=== PATIENT | female | born 1935 | race Hispanic/Latino ===

== ENCOUNTER 2020-12-18 14:01 | Inpatient (IN) | payer MEDICARE, OTHER ==
[2020-12-18] MEDS ORDERED: IPRATROPIUM/ALBUTEROL SULFATE 3 ML AMPUL.NEB IH ONE (14:47)
[2020-12-18] MEDS ORDERED: methylPREDNISolone Sod Succinate 125 MG/2 ML INJ IV ONE (14:57)
--- NOTE | 2020-12-18 14:59 | Emergency Department Report ---
ED Shortness of Breath HPI - General Chief Complaint: Dyspnea/Respdistress Stated Complaint: SUBHA Time Seen by Provider: 12/18/20 14:45 Source: patient, EMS, old records reviewed Mode of arrival: Stretcher Limitations: Other (Dementia) - History of Present Illness Initial Comments: Chief complaint: HPI: This is a 35-year-old female with history of generalized anxiety disorder, migraine, hyperlipidemia, CVA, asthma, atrial fibrillation, GERD, major dep ressive disorder, COPD, MO, hypertension, glaucoma, recurrent UTI, prediabetes, osteoarthritis of bilateral knees, aortic valve regurgitation, osteoarthritis of the left shoulder, right knee, osteopenia. She presents from [facility] with clinic after choking episode. Due to desaturation, patient was transferred to our facility. Chest radiograph performed today revealed left pleural effusion. According to documentation patient was admitted to CDU for evaluation of progressive weakness. BNP was elevated at 300. Patient is not oxygen dependent. Patient denies any discomfort at this time. According to documentation. is a caregiver. She has been progressively weaker, fatigue sleeping more losing weight. Not walking around the house as much. I spoke with Dr. Thornton who evaluated patient. She stated that patient was ready for discharge. came to pick her up. She began to choke after drinking water. Her oxygen saturation declined to the 80s. Heart rate increas e. EMS 911 was called. According to Dr. Thornton's report, urinalysis negative for infection. I spoke with at the bedside. He states that "I just cannot do it anymore. I have to take care of me." Since [place], patient caregiver has been struggling to care for her. Patient requires more care than he is able to provide. explains that patient requires 24-hour supervision. He has to be at her bedside continuously. Most recently patient is a poor appetite. She has had significant diarrhea. She needs complete assistance with bathing feeding dressing and position change. MD Complaint: shortness of breath -: Sudden Severity: mild Consistency: now resolved Improves With: nothing Worsens With: nothing Known History Of: asthma, other (Atrial fibrillation) - Related Data Allergies Allergy/AdvReac Type Severity Reaction Status Date / Time ciprofloxacin Allergy Intermediate Hives Verified 12/18/20 14:40 latex Allergy Intermediate Hives Verified 12/18/20 14:40 milk Allergy Unknown Unknown Verified 12/18/20 14:40 NSAIDS (Non-Steroidal Allergy Unknown Unknown Verified 12/18/20 14:40 Anti-Inflamma Penicillins Allergy Unknown Unknown Verified 12/18/20 14:40 co-trimoxazole Allergy Intermediate Hives Uncoded 12/18/20 14:40 ED Review of Systems ROS: Stated complaint: SUBHA Other details as noted in HPI ED Past Medical Hx - Past Medical History Previous Medical History?: Yes Hx Hypertension: Yes Hx Heart Attack/AMI: Yes Hx GERD: Yes Hx of Cancer: Yes (breast) Hx Headaches / Migraines: Yes Hx Psychiatric Treatment: Yes (anxiety) Hx Asthma: Yes Hx COPD: Yes Hx Dementia: Yes Additional medical history: hyperlipidemia, afib, atherosclerosis of aorta, bilat glaucoma, osteoarthritis, pre-diabetes - Surgical History Past Surgical History?: Yes Additional Surgical History: mastectomy - Social History Smoking Status: Never Smoker Substance Use Type: None ED Physical Exam - General Limitations: Other General appearance: alert, in no apparent distress - Head Head exam: Present: atraumatic, normocephalic - Eye Eye exam: Present: normal appearance - ENT ENT exam: Present: mucous membranes moist - Neck Neck exam: Present: normal inspection, full ROM - Respiratory Respiratory exam: Present: rales, rhonchi, decreased breath sounds, other (Incr eased respiratory rate mild work of breathing). Absent: respiratory distress, wheezes, accessory muscle use, prolonged expiratory - Cardiovascular Cardiovascular Exam: Present: regular rate, irregular rhythm, normal heart sounds. Absent: systolic murmur, diastolic murmur, rubs, gallop - GI/Abdominal GI/Abdominal exam: Present: soft. Absent: distended, tenderness, guarding, rebound - Extremities Exam Extremities exam: Present: normal inspection - Neurological Exam Neurological exam: Present: alert, other (Oriented to name only) - Psychiatric Psychiatric exam: Present: depressed, flat affect - Skin Skin exam: Present: warm, dry, intact, normal color. Absent: rash ED Course Vital Signs 12/18/20 12/18/20 12/18/20 14:21 15:00 16:00 Temperature 96 F L Pulse Rate 89 98 H 83 Pulse Rate [ Anterior Bilateral Throughout] Respiratory 26 H 24 24 Rate Respiratory Rate [Anterior Bilateral Throughout] Blood Pressure 108/60 108/60 104/72 O2 Sat by Pulse 90 87 99 Oximetry 12/18/20 12/18/20 16:07 17:00 Temperature Pulse Rate 93 H Pulse Rate [ 89 Anterior Bilateral Throughout] Respiratory 25 H Rate Respiratory 18 Rate [Anterior Bilateral Throughout] Blood Pressure 94/36 O2 Sat by Pulse 96 Oximetry ED Medical Decision Making - Lab Data Result diagrams: 12/18/20 16:06 12/18/20 16:06 - Radiology Data Radiology results: report reviewed [facility] [address] [place] [address] XRay Report Signed Patient: DAMIAN BAIRD MR#: [id number] 70 : 1935 Acct:[id number] Age/Sex: 85 / F ADM Date: 12/18/20 Loc: ED Attending Dr: Ordering Physician: Jose Wilkerson MD Date of Service: 12/18/20 Procedure(s): XR chest 1V ap Accession Number(s): [id number] cc: Jose Wilkerson MD Fluoro Time In Minutes: CHEST 1 VIEW 12/18/2020 2:39 PM INDICATION / CLINICAL INFORMATION: Dyspnea choking low oxygen. COMPARISON: None available. FINDINGS: SUPPORT DEVICES: None. HEART / MEDIASTINUM: No significant abnormality. LUNGS / PLEURA: Increased interstitial prominence with chronic interstitial change in bilateral lungs. There may be a small left effusion No pneumothorax. Signer Name: Fabrizio Thornton MD Signed: 12/18/2020 3:41 PM Workstation Name: [id number] Transcribed By: CW Dictated By: MORGAN THORNTON MD Electronically Authenticated By: MORGAN THORNTON MD Signed Date/Time: 12/18/201540 DD/ 40 TD/TT: Patient Name: DAMIAN BAIRD Gender: Female Date of : 1935 Referring Provider: JOSE THORNTON Organization: [facility] Accession Number: [id number] Requested Date: December 18, 2020 17:04 Report Status: Final Requested Procedure: 1 Procedure Description: CT abdomen pelvis w con Modality: CT Findings Reporting MD: Fabrizio Thornton Dictation Time: December 18, 2020 17:34 Recruitment Internship: Not available Chemical Project Engineer Date: CT ABDOMEN AND PELVIS WITH CONTRAST HISTORY: diarrhea leukocytosis failure to thrive. COMPARISON: None. TECHNIQUE: CT images of the abdomen and pelvis were obtained following administration of intravenous contrast. All CT scans at this location are performed using CT dose reduction for ALARA by means of automated exposure control. CONTRAST: 100 ml of intravenous contrast administered. FINDINGS: Abdomen/pelvis: The liver, spleen, pancreas and gallbladder appear normal. There is thickening of bilateral adrenal glands. There may be a left adrenal nodular/hypodensity with Hounsfield unit of 50 measuring 1.5 cm. Malrotation of the right kidney anteriorly appendix appears normal. There is constipation throughout the colon. Urinary bladder appears normal. No bowel obstruction. There is sigmoid diverticulosis. No dominant adenopathy. Degenerative changes seen throughout spine with scoliosis. The liver is enlarged measuring 19.3 cm questionable thickening of ascending colon IMPRESSION: 1. Bilateral pleural effusions. Small pericardial effusion. 2. Right kidney is anteriorly rotated. No severe hydronephrosis. 3. Constipation. Sigmoid and colonic diverticulosis without diverticulitis. There is some questionable thickening of the ascending colon however lack of oral contrast limits examination limits evaluation of the colon. Given patient's age follow-up with colonoscopy recommended for patient's symptoms. 4. Hepatomegaly 5. Left adrenal nodule. Follow-up with noncontrast scan recommended. Patient Name: DAMIAN BAIRD Gender: Female Date of : 1935 Referring Provider: JOSE THORNTON Organization: [facility] Accession Number: [id number] Requested Date: December 18, 2020 17:09 Report Status: Final Requested Procedure: 1 Procedure Description: CT angio chest Modality: CT Findings Reporting MD: Fabrizio Thornton Dictation Time: December 18, 2020 17:27 Recruitment Internship: Not available Chemical Project Engineer Date: CTA CHEST WITH CONTRAST INDICATION / CLINICAL INFORMATION: hypoxia. TECHNIQUE: Axial CT images were obtained through the chest after injection of IV contrast. 3 plane MIP and/or 3D reconstructions were produced. All CT scans at this location are performed using CT dose reducti on for ALARA by means of automated exposure control. COMPARISON: None available. FINDINGS: The pulmonary arteries are patent without filling defect or evidence for PTE. Diffuse emphysematous change in bilateral lungs. There is interstitial nodularity with pulmonary nodules and opacities in bilate ral lungs. Some interstitial nodularity is noted as well. Small focal area of opacity is seen within the lower lungs and right middle lobe bilaterally. Bilateral pleural effusions are identified. Heart and aorta appear normal. IMPRESSION: 1. No CT evidence for pulmonary embolism. 2. Bilateral pulmonary opacities in bilateral lungs. There is interstitial prominence with interstitial nodularity and pulmonary nodules in bilateral lungs. More focal opacities in bilateral lower lungs. Findings cou ld represent atypical infection, fungal infection, Covid, nonspecific. Follow-up to exclude pulmonary nodule recommended. 3. Pleural effusions Signer Name: Fabrizio Thornton MD Signed: 12/18/2020 5:27 PM Workstation Name: [id number] - Medical Decision Making 1. Acute respiratory failure hypoxia requiring nasal cannula pulmonary embolism ruled out with CT angiogram. CT chest findings represent aspiration pneumonia versus community-acquired pneumonia. Congestive heart failure is a consideration with elevated proBNP. 2. Multifocal pneumonia possible sepsis with significant leukocytosis and elevated lactic acid. I spoke personally with physician. Urinalysis reported to be negative [facility]. I spoke with Dr. Herbie Rapp physician who authorized admission to our facility. Hospitalist Dr. Sheets will admit to telemetry floor Critical care attestation.: If time is entered above; I have spent that time in minutes in the direct care of this critically ill patient, excluding procedure time. ED Disposition Clinical Impression: Aspiration pneumonitis, Community acquired pneumonia, Congestive heart failure, Atrial fibrillation, Dehydration, Acute respiratory failure with hypoxia Disposition: OP ADMIT IP TO THIS HOSP Is pt being admited?: No Does the pt Need Aspirin: No Condition: Stable Instructions: Bacterial Pneumonia (ED) Referrals: SAVAGE HAN MD [Primary Care Provider] - 3-5 Days
--- NOTE | 2020-12-18 15:45 | XRay Report ---
CHEST 1 VIEW 12/18/2020 2:39 PM INDICATION / CLINICAL INFORMATION: Dyspnea choking low oxygen. COMPARISON: None available. FINDINGS: SUPPORT DEVICES: None. HEART / MEDIASTINUM: No significant abnormality. LUNGS / PLEURA: Increased interstitial prominence with chronic interstitial change in bilateral lungs . There may be a small left effusion No pneumothorax. Signer Name: Fabrizio Thornton MD Signed: 12/18/2020 3:41 PM Workstation Name: [id number]
[2020-12-18 16:30] LABS: Basophils # (Auto) 0.2 K/mm3 (0.0-0.1); Basophils % (Auto) 1.2 % (0.0-1.8); Eosinophils % (Auto) 0.1 % (0.0-4.3); Hemoglobin 14.8 gm/dl (10.1-14.3); Lymphocytes # (Auto) 0.4 K/mm3 (1.2-5.4); Lymphocytes % (Auto) 2.4 % (13.4-35.0); Mean Corpuscular HGB Conc 35 % (30-34); Mean Corpuscular Volume 93 fl (79-97); Monocytes # (Auto) 1.5 K/mm3 (0.0-0.8); Platelet Count 298 K/mm3 (140-440); Red Blood Count 4.65 M/mm3 (3.65-5.03); Red Cell Distribution Width 13.2 % (13.2-15.2)
[2020-12-18 16:36] LABS: Blood Urea Nitrogen 7 mg/dL (7-17); Calcium 9.1 mg/dL (8.4-10.2); Hemolysis Index 15
[2020-12-18 16:39] LABS: BUN/Creatinine Ratio 14
[2020-12-18] MEDS ORDERED: SODIUM CHLORIDE 0.9% 500 ML 500 ML IV ONE (17:08)
--- NOTE | 2020-12-18 18:31 | Cat Scan Report ---
CTA CHEST WITH CONTRAST INDICATION / CLINICAL INFORMATION: hypoxia. TECHNIQUE: Axial CT images were obtained through the chest after injection of IV contrast. 3 plane [place] P and/or 3D reconstructions were produced. All CT scans at this location are performed using CT dose reduction for ALARA by means of automated exposure control. COMPARISON: None available. FINDINGS: The pulmonary arteries are patent without filling defect or evidence for PTE. Diffuse emphysematous c hange in bilateral lungs. There is interstitial nodularity with pulmonary nodules and opacities in bi lateral lungs. Some interstitial nodularity is noted as well. Small focal area of opacity is seen wit hin the lower lungs and right middle lobe bilaterally. Bilateral pleural effusions are identified. He art and aorta appear normal. IMPRESSION: 1. No CT evidence for pulmonary embolism. 2. Bilateral pulmonary opacities in bilateral lungs. There is interstitial prominence with interstiti al nodularity and pulmonary nodules in bilateral lungs. More focal opacities in bilateral lower lungs . Findings could represent atypical infection, fungal infection, Covid, nonspecific. Follow-up to exc lude pulmonary nodule recommended. 3. Pleural effusions Signer Name: Fabrizio Thornton MD Signed: 12/18/2020 6:27 PM Workstation Name: [id number]
--- NOTE | 2020-12-18 18:38 | Cat Scan Report ---
CT ABDOMEN AND PELVIS WITH CONTRAST HISTORY: diarrhea leukocytosis failure to thrive. COMPARISON: None. TECHNIQUE: CT images of the abdomen and pelvis were obtained following administration of intravenous contrast. All CT scans at this location are performed using CT dose reduction for ALARA by means of automated exposure control. CONTRAST: 100 ml of intravenous contrast administered. FINDINGS: Abdomen/pelvis: The liver, spleen, pancreas and gallbladder appear normal. There is thickening of bi lateral adrenal glands. There may be a left adrenal nodular/hypodensity with Hounsfield unit of 50 me asuring 1.5 cm. Malrotation of the right kidney anteriorly appendix appears normal. There is constipa tion throughout the colon. Urinary bladder appears normal. No bowel obstruction. There is sigmoid div erticulosis. No dominant adenopathy. Degenerative changes seen throughout spine with scoliosis. The l iver is enlarged measuring 19.3 cm questionable thickening of ascending colon IMPRESSION: 1. Bilateral pleural effusions. Small pericardial effusion. 2. Right kidney is anteriorly rotated. No severe hydronephrosis. 3. Constipation. Sigmoid and colonic diverticulosis without diverticulitis. There is some questionabl e thickening of the ascending colon however lack of oral contrast limits examination limits evaluatio n of the colon. Given patient's age follow-up with colonoscopy recommended for patient's symptoms. 4. Hepatomegaly 5. Left adrenal nodule. Follow-up with noncontrast scan recommended. Signer Name: Fabrizio Thornton MD Signed: 12/18/2020 6:34 PM Workstation Name: [id number]
[2020-12-18] MEDS ORDERED: methylPREDNISolone Sod Succinate 40 MG/1 ML INJ IV ONE ×2 (18:49→22:00)
--- NOTE | 2020-12-18 19:07 | History and Physical Report ---
History of Present Illness Chief complaint: She started choking and get short of breath History of present illness: 85 YO Female with Vascular Dementia, Cerebral Atherosclerosis, MARNI, Malnutrition, Migraine LUTHER, HLD, CVA, Atrial Fib, GERD, MDD, COPD, AK, HTN, OA, Valvular Heart Disease, Debility, BRCA S/P Mastectomy presents to ED for evaluation. Patient is confused with diminished cognition and is unable to provide history. Patient had history brought by EMS staff, ED staff, as well as the patient who is at bedside during exam and interview. As per the patient has experienced progressive muscular weakness over the past 7 months with progressively worsening symptoms over the past 30 days. Patient is currently bedbound, nonambulatory. Patient requires 6/6 assistance with activities of daily living and has a palliative performance of 30%. The patient was seen and evaluated at [facility] and experienced a coughing episode after ingestion of liquid. EMS was notified and upon arrival the patient was found to be in distress and subsequently transported to [facility] for further care and evaluation of the aforementioned symptoms. The patient was seen and evaluated in the emergency department. All lab and imaging studies reviewed. Patient found to have a pulse oximetry of 86% while on room air which is consistent with acute hypoxemic respiratory failure. Patient underwent chest x-ray and found to have pneumonia suspected secondary to aspiration which is complicated by sepsis. Patient admitted to telemetry and initiated on sepsis protocol and treated with supportive care with improvement in symptoms. No further history is obtainable. Patient has diminished cognition but has a positive gag reflex and is able to protect her airway without difficulty. Advanced care planning conducted in ED. Past History Past Medical History: acute AK, atrial fib, arthritis, cancer, COPD, hypertension, hyperlipidemia, stroke, other (See HPI) Past Surgical History: mastectomy Social history: , lives with family. denies: smoking, alcohol abuse, prescription drug abuse Family history: diabetes, hypertension Medications and Allergies Allergies Allergy/AdvReac Type Severity Reaction Status Date / Time ciprofloxacin Allergy Intermediate Hives Verified 12/18/20 14:40 latex Allergy Intermediate Hives Verified 12/18/20 14:40 milk Allergy Unknown Unknown Verified 12/18/20 14:40 NSAIDS (Non-Steroidal Allergy Unknown Unknown Verified 12/18/20 14:40 Anti-Inflamma Penicillins Allergy Unknown Unknown Verified 12/18/20 14:40 co-trimoxazole Allergy Intermediate Hives Uncoded 12/18/20 14:40 Active Meds: Active Medications Levofloxacin/Dextrose (Levaquin 750mg/150ml) 750 mg in 150 mls @ 100 mls/hr IV ONCE ONE; Protocol Stop: 12/18/20 20:16 Review of Systems ROS unobtainable: due to mental status Exam - Constitutional Vitals: Temp Pulse Resp BP Pulse Ox 96 F L 93 H 25 H 94/36 96 12/18/20 14:21 12/18/20 17:00 12/18/20 17:00 12/18/20 17:00 12/18/20 17:00 General appearance: Present: mild distress, cachectic - EENT Eyes: Present: PERRL ENT: clear oral mucosa, hearing decreased - Neck Neck: Present: supple, normal ROM - Respiratory Respiratory effort: labored Respiratory: bilateral: diminished, rhonchi - Cardiovascular Rhythm: irregularly irregular Heart Sounds: Present: S1 & S2. Absent: rub, click - Extremities Extremities: pulses symmetrical, No edema Peripheral Pulses: abnormal (Capillary refill greater than 3.5 seconds) - Abdominal General gastrointestinal: Present: soft, non-tender, non-distended, normal bowel sounds Female genitourinary: Present: normal - Integumentary Integumentary: Present: dry, clammy, decreased turgor - Musculoskeletal Musculoskeletal: generalized weakness - Psychiatric Psychiatric: no appropriate mood/affect, no intact judgment & insight, no memory intact, agitated - Neurologic Neurologic: CNII-XII intact, no focal deficits, moves all extremities, no gait normal Results - Labs CBC & Chem 7: 12/18/20 16:06 12/18/20 16:06 Labs: Abnormal lab results 12/18/20 12/18/20 12/18/20 Range/Units 16:06 16:06 16:06 WBC 16.3 H (4.5-11.0) K/mm3 Hgb 14.8 H (10.1-14.3) gm/dl Hct 43.0 H (30.3-42.9) % MCHC 35 H (30-34) % Lymph % (Auto) 2.4 L (13.4-35.0) % Mower % (Auto) 9.0 H (0.0-7.3) % Lymph # (Auto) 0.4 L (1.2-5.4) K/mm3 Mower # (Auto) 1.5 H (0.0-0.8) K/mm3 Baso # (Auto) 0.2 H (0.0-0.1) K/mm3 Seg Neutrophils % 87.3 H (40.0-70.0) % Seg Neutrophils # 14.2 H (1.8-7.7) K/mm3 Sodium 131 L (137-145) mmol/L Chloride 92.8 L (98-107) mmol/L Creatinine 0.5 L (0.6-1.2) mg/dL Glucose 156 H (65-100) mg/dL Lactic Acid (0.7-2.0) mmol/L NT-Pro-B Natriuret Pep 4882 H (0-900) pg/mL 12/18/20 Range/Units 17:12 WBC (4.5-11.0) K/mm3 Hgb (10.1-14.3) gm/dl Hct (30.3-42.9) % MCHC (30-34) % Lymph % (Auto) (13.4-35.0) % Mower % (Auto) (0.0-7.3) % Lymph # (Auto) (1.2-5.4) K/mm3 Mower # (Auto) (0.0-0.8) K/mm3 Baso # (Auto) (0.0-0.1) K/mm3 Seg Neutrophils % (40.0-70.0) % Seg Neutrophils # (1.8-7.7) K/mm3 Sodium (137-145) mmol/L Chloride (98-107) mmol/L Creatinine (0.6-1.2) mg/dL Glucose (65-100) mg/dL Lactic Acid 2.90 H* (0.7-2.0) mmol/L NT-Pro-B Natriuret Pep (0-900) pg/mL Assessment and Plan - Patient Problems (1) Sepsis Current Visit: Yes Status: Acute Qualifiers: Acute respiratory failure type: with hypoxia Plan to address problem: Sepsis protocol: Chest x-ray, CBC, CMP, urinalysis, IV antibiotic therapy, serial lactic acid level, monitor urine output every shift, daily weight, maintain mean arterial pressure greater than or equal to 65, blood culture. (2) Acute respiratory failure with hypoxia Current Visit: Yes Status: Acute Plan to address problem: Supplemental oxygen, pulse oximetry, nebulizer therapy, chest x-ray, noninvasive positive pressure ventilation as clinically indicated (3) Vascular dementia Current Visit: Yes Status: Acute Qualifiers: Dementia behavioral disturbance: without behavioral disturbance Qualified Code(s): F01.50 - Vascular dementia without behavioral disturbance Plan to address problem: Verbal prompting, verbal redirection, benzodiazepine therapy as clinically indicated. (4) Cerebral atherosclerosis Current Visit: Yes Status: Acute Plan to address problem: Supportive care, risk factor reduction, antiplatelet therapy as clinically indicated. (5) Malnutrition Current Visit: Yes Status: Acute Qualifiers: Protein-calorie malnutrition severity: severe Plan to address problem: Dietary supplementation, increase protein intake when awake and alert only. (6) Aspiration pneumonitis Current Visit: Yes Status: Acute Plan to address problem: Pneumonia protocol: IV antibiotic therapy, chest x-ray, CBC, CMP, blood culture, noninvasive positive pressure ventilation as clinically indicated, supportive care, (7) Atrial fibrillation Current Visit: Yes Status: Acute Qualifiers: Atrial fibrillation type: paroxysmal Qualified Code(s): I48.0 - Paroxysmal atrial fibrillation Plan to address problem: Supportive care, continue medical management. (8) Congestive heart failure Current Visit: Yes Status: Suspected Qualifiers: Heart failure type: systolic Heart failure chronicity: acute Qualified Code(s): I50.21 - Acute systolic (congestive) heart failure Plan to address problem: BNP, chest x-ray, thyroid panel, magnesium level, echocardiogram ordered and is pending at time of admission, cardiology team consulted. Further care and evaluation as per cardiology team. (9) DVT prophylaxis Current Visit: Yes Status: Acute Plan to address problem: SCD to bilateral lower extremities while in bed, prophylactic anticoagulation (10) Advance care planning Current Visit: Yes Status: Acute Plan to address problem: Disease education conducted, care plan discussed, diagnosis discussed, prognosis discussed, patient is full code. Patient acknowledges understanding and agreement with care plan. Patient has been request information regarding [facility] placement. Case management consulted, +30 minutes.
[2020-12-18] MEDS ORDERED: ONDANSETRON 4 MG/2 ML INJ IV PRN (19:10)
[2020-12-18] MEDS ORDERED: ALBUTEROL 2.5 MG/3 ML NEBU IH PRN (19:10)
[2020-12-18] MEDS ORDERED: HYDROmorphone 1 MG/1 ML INJ IV PRN ×2 (19:10)
[2020-12-18] MEDS ORDERED: SODIUM CHLORIDE 0.9% 1000 ML IV SOLN IV ONE (19:10)
[2020-12-18] MEDS ORDERED: oxyCODONE /ACETAMINOPHEN 5-325MG TAB PO PRN (19:10)
[2020-12-18] MEDS ORDERED: ACETAMINOPHEN 325 MG TAB PO PRN (19:10)
[2020-12-18 20:24] LABS: Free T4 (Free Thyroxine) 1.24 ng/dL (0.76-1.46)
[2020-12-18] MEDS: metroNIDAZOLE/NS 500 MG/100 ML 500 MG/100 ML BAG IV SCH (21:05)
[2020-12-18] MEDS: cefTRIAXone/NS 2 GM/100 ML 2 GM/100 ML BAG IV SCH (22:46)
[2020-12-18] MEDS: AZITHROMYCIN/NS 500 MG/250 ML 500 MG/250 ML BAG IV SCH (23:38)
[2020-12-19] MEDS: metroNIDAZOLE/NS 500 MG/100 ML 500 MG/100 ML BAG IV SCH ×3 (04:09→21:50)
[2020-12-19 06:51] LABS: Hematocrit 41.1 % (30.3-42.9); Hemoglobin 13.9 gm/dl (10.1-14.3); Mean Corpuscular HGB Conc 34 % (30-34); Mean Corpuscular Volume 93 fl (79-97); Platelet Count 273 K/mm3 (140-440); Red Blood Count 4.41 M/mm3 (3.65-5.03); Red Cell Distribution Width 13.1 % (13.2-15.2)
[2020-12-19 07:15] LABS: Alanine Aminotransferase 31 units/L (7-56); Albumin 2.2 g/dL (3.9-5); Blood Urea Nitrogen 11 mg/dL (7-17); Calcium 8.3 mg/dL (8.4-10.2); Hemolysis Index 7
[2020-12-19 07:33] LABS: BUN/Creatinine Ratio 22
[2020-12-19] MEDS: HEPARIN 5,000 UNIT/1 ML VIAL SUB-Q SCH ×3 (07:59→21:36)
--- NOTE | 2020-12-19 09:33 | Progress Note ---
Assessment and Plan Assessment and plan: Sepsis Aspiration pneumonia Acute hypoxic respiratory failure Acute COPD exacerbation Atrial fibrillation Vascular dementia Cerebral atherosclerosis Moderate protein calorie malnutrition Hyperlipidemia History CVA Diverticulosis Constipation 12/19/2020. Continue IV antibiotics of ceftriaxone and azithromycin. Follow-up serial chest x-ray. Check blood cultures x2. PT evaluation. Start steroids IV. History Interval history: No new issues overnight Hospitalist Physical - Constitutional Vitals: Temp Pulse Resp BP Pulse Ox 97.9 F 79 16 97/52 92 12/19/20 07:20 12/19/20 07:20 12/19/20 07:20 12/19/20 07:20 12/19/20 07:20 General appearance: Present: mild distress, cachectic - EENT Eyes: Present: PERRL, EOM intact ENT: hearing intact, clear oral mucosa, dentition normal - Neck Neck: Present: supple, normal ROM - Respiratory Respiratory effort: normal Respiratory: bilateral: diminished, rhonchi - Cardiovascular Rhythm: regular Heart Sounds: Present: S1 & S2. Absent: gallop, rub - Extremities Extremities: no ischemia, No edema, Full ROM - Abdominal General gastrointestinal: soft, non-tender, non-distended, normal bowel sounds - Integumentary Integumentary: Present: clear, warm, dry - Neurologic Neurologic: CNII-XII intact, moves all extremities Results - Labs CBC & Chem 7: 12/19/20 05:10 12/19/20 05:10 Labs: Laboratory Last Values WBC 12.3 K/mm3 (4.5-11.0) H 12/19/20 05:10 RBC 4.41 M/mm3 (3.65-5.03) 12/19/20 05:10 Hgb 13.9 gm/dl (10.1-14.3) 12/19/20 05:10 Hct 41.1 % (30.3-42.9) 12/19/20 05:10 MCV 93 fl (79-97) 12/19/20 05:10 MCH 31 pg (28-32) 12/19/20 05:10 MCHC 34 % (30-34) 12/19/20 05:10 RDW 13.1 % (13.2-15.2) L 12/19/20 05:10 Plt Count 273 K/mm3 (140-440) 12/19/20 05:10 Lymph % (Auto) 2.4 % (13.4-35.0) L 12/18/20 16:06 [place] % (Auto) 9.0 % (0.0-7.3) H 12/18/20 16:06 Eos % (Auto) 0.1 % (0.0-4.3) 12/18/20 16:06 Baso % (Auto) 1.2 % (0.0-1.8) 12/18/20 16:06 Lymph # (Auto) 0.4 K/mm3 (1.2-5.4) L 12/18/20 16:06 [place] # (Auto) 1.5 K/mm3 (0.0-0.8) H 12/18/20 16:06 Eos # (Auto) 0.0 K/mm3 (0.0-0.4) 12/18/20 16:06 Baso # (Auto) 0.2 K/mm3 (0.0-0.1) H 12/18/20 16:06 Seg Neutrophils % Sterile Technician 12/19/20 05:10 Seg Neutrophils # 14.2 K/mm3 (1.8-7.7) H 12/18/20 16:06 Sodium 139 mmol/L (137-145) D 12/19/20 05:10 Potassium 3.8 mmol/L (3.6-5.0) 12/19/20 05:10 Chloride 102.1 mmol/L (98-107) 12/19/20 05:10 Carbon Dioxide 24 mmol/L (22-30) 12/19/20 05:10 Anion Gap 17 mmol/L 12/19/20 05:10 BUN 11 mg/dL (7-17) 12/19/20 05:10 Creatinine 0.5 mg/dL (0.6-1.2) L 12/19/20 05:10 Estimated GFR > 60 ml/min 12/19/20 05:10 BUN/Creatinine Ratio 22 % 12/19/20 05:10 Glucose 145 mg/dL (65-100) H 12/19/20 05:10 Lactic Acid 1.60 mmol/L (0.7-2.0) 12/19/20 05:10 Calcium 8.3 mg/dL (8.4-10.2) L 12/19/20 05:10 Magnesium 2.00 mg/dL (1.7-2.3) 12/18/20 19:30 Total Bilirubin 0.40 mg/dL (0.1-1.2) 12/19/20 05:10 AST 27 units/L (5-40) 12/19/20 05:10 ALT 31 units/L (7-56) 12/19/20 05:10 Alkaline Phosphatase 170 units/L (35-129) H 12/19/20 05:10 NT-Pro-B Natriuret Pep 4882 pg/mL (0-900) H 12/18/20 16:06 Total Protein 4.9 g/dL (6.3-8.2) L 12/19/20 05:10 Albumin 2.2 g/dL (3.9-5) L 12/19/20 05:10 Albumin/Globulin Ratio 0.8 % 12/19/20 05:10 TSH 3.170 mlU/mL (0.270-4.200) 12/18/20 19:30 Free T4 1.24 ng/dL (0.76-1.46) 12/18/20 19:30 Acuña/IV: Voiding Method Toilet Active Medications - Current Medications Current Medications: Generic Name Dose Route Start Last Admin Trade Name Freq PRN Reason Stop Dose Admin Acetaminophen 650 mg 12/18/20 19:10 Acetaminophen 325 Mg Tab PO Q4H PRN Pain MILD(1-3)/Fever >100.5/LUTHER Albuterol 2.5 mg 12/18/20 19:10 Albuterol 2.5 Mg/3 Ml Nebu IH Q4HRT PRN Shortness Of Breath Heparin Sodium (Porcine) 5,000 unit 12/18/20 22:00 12/19/20 07:59 Heparin 5,000 Unit/1 Ml Vial SUB-Q Not Given Q12HR RICA Hydromorphone HCl 0.25 mg 12/18/20 19:10 Hydromorphone 1 Mg/1 Ml Inj IV Q4H PRN Pain, Moderate (4-6) Hydromorphone HCl 0.5 mg 12/18/20 19:10 Hydromorphone 1 Mg/1 Ml Inj IV Q12H PRN Pain , Severe (7-10) Metronidazole 500 mg in 100 mls @ 100 mls/hr 12/18/20 20:00 12/19/20 04:09 Flagyl 500 Mg/100 Ml IV 100 mls/hr Q8H RICA Administration Protocol Ceftriaxone Sodium 2 gm in 100 mls @ 200 mls/hr 12/18/20 21:00 12/18/20 22:46 Rocephin/Ns 2 Gm/100 Ml IV 200 mls/hr Q24H RICA Administration Protocol Azithromycin 500 mg in 250 mls @ 250 mls/hr 12/18/20 20:00 12/18/20 23:38 Zithromax/Ns IV 250 mls/hr Q24H RICA Administration Protocol Ondansetron HCl 4 mg 12/18/20 19:10 Ondansetron 4 Mg/2 Ml Inj IV Q8H PRN Nausea And Vomiting Oxycodone/Acetaminophen 1 tab 12/18/20 19:10 Oxycodone /Acetaminophen 5-325mg Tab PO Q12H PRN Pain, Moderate (4-6) Sodium Chloride 10 ml 12/18/20 22:00 12/18/20 22:09 Sodium Chloride 0.9% 10 Ml Flush Syringe IV 10 ml BID RICA Administration Sodium Chloride 10 ml 12/18/20 19:10 Sodium Chloride 0.9% 10 Ml Flush Syringe IV PRN PRN LINE FLUSH
[2020-12-19] MEDS: methylPREDNISolone Sod Succinate 40 MG/1 ML INJ IV SCH ×2 (10:36→21:37)
--- NOTE | 2020-12-19 11:28 | Consultation ---
History of Present Illness Consult date: 12/19/20 Requesting physician: JAYNE OSBORNE Consult reason: atrial fibrillation History of present illness: 85 YO Female with Vascular Dementia, Cerebral Atherosclerosis, MARNI, Malnutrition, Migraine LUTHER, HLD, CVA, Atrial Fib, GERD, MDD, COPD, NV, HTN, OA, Valvular Heart Disease, Debility, BRCA S/P Mastectomy presents to ED for evaluation. Patient is confused with diminished cognition and is unable to provide history. Patient had history brought by EMS staff, ED staff, as well as the patient who is at bedside during exam and interview. As per the patient has experienced progressive muscular weakness over the past 7 months with progressively worsening symptoms over the past 30 days. Patient is curr ently bedbound, nonambulatory. Patient requires 6/6 assistance with activities of daily living and has a palliative performance of 30%. The patient was seen and evaluated at [facility] and experienced a coughing episode after ingestion of liquid. EMS was notified and upon arrival the patient was found to be in distress and subsequently transported to [facility] for further care and evaluation of the aforementioned symptoms. The patient was seen and evaluated in the emergency department. All lab and imaging studies reviewed. Patient found to have a pulse oximetry of 86% while on room air which is consistent with acute hypoxemic respiratory failure. Patient underwent chest x-ray and found to have pneumonia suspected secondary to aspiration which is complicated by sepsis. Patient admitted to telemetry and initiated on sepsis protocol and treated with supportive care with improvement in symptoms. No further history is obtainable. Patient has diminished cognition but has a positive gag reflex and is able to protect her airway without difficulty. Advanced care planning conducted in ED. as per the brought her into the [place] ER and suspected aspiration. This morning patient is not on room air on antibiotics getting speech evaluation PT evaluation as per the cannot take care of her anymore would like usp placement. Patient has a history of atrial fibrillation not on oral anticoagulation secondary to dementia and fall risk. Past History Past Medical History: acute NV, atrial fib, arthritis, cancer, COPD, hypertension, hyperlipidemia, stroke, other (See HPI) Past Surgical History: mastectomy Social history: , lives with family. denies: smoking, alcohol abuse, prescription drug abuse Family history: diabetes, hypertension Medications and Allergies Allergies Allergy/AdvReac Type Severity Reaction Status Date / Time ciprofloxacin Allergy Intermediate Hives Verified 12/18/20 14:40 latex Allergy Intermediate Hives Verified 12/18/20 14:40 milk Allergy Unknown Unknown Verified 12/18/20 14:40 NSAIDS (Non-Steroidal Allergy Unknown Unknown Verified 12/18/20 14:40 Anti-Inflamma Penicillins Allergy Unknown Unknown Verified 12/18/20 14:40 co-trimoxazole Allergy Intermediate Hives Uncoded 12/18/20 14:40 Active Meds: Active Medications Acetaminophen (Acetaminophen 325 Mg Tab) 650 mg PO Q4H PRN PRN Reason: Pain MILD(1-3)/Fever >100.5/LUTHER Albuterol (Albuterol 2.5 Mg/3 Ml Nebu) 2.5 mg IH Q4HRT PRN PRN Reason: Shortness Of Breath Heparin Sodium (Porcine) (Heparin 5,000 Unit/1 Ml Vial) 5,000 unit SUB-Q Q12HR RICA Last Admin: 12/19/20 10:36 Dose: 5,000 unit Documented by: Hydromorphone HCl (Hydromorphone 1 Mg/1 Ml Inj) 0.25 mg IV Q4H PRN PRN Reason: Pain, Moderate (4-6) Hydromorphone HCl (Hydromorphone 1 Mg/1 Ml Inj) 0.5 mg IV Q12H PRN PRN Reason: Pain , Severe (7-10) Metronidazole (Flagyl 500 Mg/100 Ml) 500 mg in 100 mls @ 100 mls/hr IV Q8H RICA; Protocol Last Admin: 12/19/20 04:09 Dose: 100 mls/hr Documented by: Ceftriaxone Sodium (Rocephin/Ns 2 Gm/100 Ml) 2 gm in 100 mls @ 200 mls/hr IV Q24H RICA; Protocol Last Admin: 12/18/20 22:46 Dose: 200 mls/hr Documented by: Azithromycin (Zithromax/Ns) 500 mg in 250 mls @ 250 mls/hr IV Q24H RICA; Protocol Last Admin: 12/18/20 23:38 Dose: 250 mls/hr Documented by: Methylprednisolone Sodium Succinate (Methylprednisolone Sod Succinate 40 Mg/1 Ml Inj) 40 mg IV Q12HR RICA Last Admin: 12/19/20 10:36 Dose: 40 mg Documented by: Metoprolol Tartrate (Metoprolol Tartrate 25 Mg Tab) 25 mg PO BID [facility] Ondansetron HCl (Ondansetron 4 Mg/2 Ml Inj) 4 mg IV Q8H PRN PRN Reason: Nausea And Vomiting Oxycodone/Acetaminophen (Oxycodone /Acetaminophen 5-325mg Tab) 1 tab PO Q12H PRN PRN Reason: Pain, Moderate (4-6) Sodium Chloride (Sodium Chloride 0.9% 10 Ml Flush Syringe) 10 ml IV BID [facility] Last Admin: 12/19/20 10:36 Dose: 10 ml Documented by: Sodium Chloride (Sodium Chloride 0.9% 10 Ml Flush Syringe) 10 ml IV PRN PRN PRN Reason: LINE FLUSH Review of Systems ROS unobtainable: due to mental status Physical Examination Vital Signs Temp Pulse Resp BP Pulse Ox 96 F L 89 26 H 108/60 90 12/18/20 14:21 12/18/20 14:21 12/18/20 14:21 12/18/20 14:21 12/18/20 14:21 General appearance: no acute distress, well-nourished HEENT: Positive: PERRL, Mucus Membranes Moist Neck: Positive: neck supple, trachea midline Cardiac: Positive: Reg Rate and Rhythm, S1/S2. Negative: Audible Murmur Lungs: Positive: clear to auscultation, Normal Breath Sounds Neuro: Positive: Grossly Intact Abdomen: Positive: Soft, Active Bowel Sounds. Negative: Tender, Distended Female genitourinary: deferred Skin: Positive: Clear Incision: Cardiac Cath Site Musculoskeletal: No Pain, Normal Range of Motion Extremities: Present: normal. Absent: edema Results 12/19/20 05:10 12/19/20 05:10 Cardiac Enzymes 12/19/20 Range/Units 05:10 AST 27 (5-40) units/L CBC 12/18/20 12/19/20 Range/Units 16:06 05:10 WBC 16.3 H 12.3 H (4.5-11.0) K/mm3 RBC 4.65 4.41 (3.65-5.03) M/mm3 Hgb 14.8 H 13.9 (10.1-14.3) gm/dl Hct 43.0 H 41.1 (30.3-42.9) % Plt Count 298 273 (140-440) K/mm3 Lymph # (Auto) 0.4 L (1.2-5.4) K/mm3 [place] # (Auto) 1.5 H (0.0-0.8) K/mm3 Eos # (Auto) 0.0 (0.0-0.4) K/mm3 Baso # (Auto) 0.2 H (0.0-0.1) K/mm3 Comprehensive Metabolic Panel 12/18/20 12/19/20 Range/Units 16:06 05:10 Sodium 131 L 139 D (137-145) mmol/L Potassium 4.4 3.8 (3.6-5.0) mmol/L Chloride 92.8 L 102.1 (98-107) mmol/L Carbon Dioxide 26 24 (22-30) mmol/L BUN 7 11 (7-17) mg/dL Creatinine 0.5 L 0.5 L (0.6-1.2) mg/dL Glucose 156 H 145 H (65-100) mg/dL Calcium 9.1 8.3 L (8.4-10.2) mg/dL AST 27 (5-40) units/L ALT 31 (7-56) units/L Alkaline Phosphatase 170 H (35-129) units/L Total Protein 4.9 L (6.3-8.2) g/dL Albumin 2.2 L (3.9-5) g/dL EKG interpretations - Telemetry EKG Rhythm: Atrial Fibrillation (Nonspecific ST-T) - EKG Sinus rhythms and dysrhythmias: sinus rhythm Assessment and Plan 85-year-old patient with vascular dementia proximal atrial fibrillation not on oral anticoagulation being treated for possible aspiration pneumonia needing usp placement start low-dose beta-dylan until family can bring medications in is not on oral anticoagulation secondary to fall risk. Get an echocardiogram. For LV function. - Patient Problems (1) Acute respiratory failure with hypoxia Current Visit: Yes Status: Acute (2) Aspiration pneumonitis Current Visit: Yes Status: Acute (3) Atrial fibrillation Current Visit: Yes Status: Chronic Qualifiers: Atrial fibrillation type: paroxysmal Qualified Code(s): I48.0 - Paroxysmal atrial fibrillation (4) Cerebral atherosclerosis Current Visit: Yes Status: Acute (5) DVT prophylaxis Current Visit: Yes Status: Acute (6) Dehydration Current Visit: Yes Status: Acute (7) Malnutrition Current Visit: Yes Status: Acute Qualifiers: Protein-calorie malnutrition severity: severe (8) Vascular dementia Current Visit: Yes Status: Acute Qualifiers: Dementia behavioral disturbance: without behavioral disturbance Qualified Code(s): F01.50 - Vascular dementia without behavioral disturbance
[2020-12-19 12:43] LABS: RBC Morphology Normal; Total Cells Counted 100
[2020-12-19] MEDS: METOPROLOL TARTRATE 25 MG TAB PO SCH ×2 (12:59→21:36)
[2020-12-19 14:11] LABS: Chol/HDL Ratio 2.12 %
[2020-12-19] MEDS: cefTRIAXone/NS 2 GM/100 ML 2 GM/100 ML BAG IV SCH (21:40)
[2020-12-19] MEDS: AZITHROMYCIN/NS 500 MG/250 ML 500 MG/250 ML BAG IV SCH (21:56)
[2020-12-20] MEDS: metroNIDAZOLE/NS 500 MG/100 ML 500 MG/100 ML BAG IV SCH ×3 (04:31→21:44)
[2020-12-20 05:55] LABS: Hemoglobin 15.2 gm/dl (10.1-14.3); Mean Corpuscular HGB Conc 34 % (30-34); Mean Corpuscular Volume 93 fl (79-97); Platelet Count 387 K/mm3 (140-440); Red Blood Count 4.84 M/mm3 (3.65-5.03); Red Cell Distribution Width 13.6 % (13.2-15.2)
[2020-12-20 06:11] LABS: Blood Urea Nitrogen 16 mg/dL (7-17); Calcium 9.2 mg/dL (8.4-10.2); Hemolysis Index 9
[2020-12-20 06:12] LABS: BUN/Creatinine Ratio 27
[2020-12-20 06:58] LABS: Anisocytosis 1+; Monocytes % (Manual) 5.5 % (0.0-7.3); Total Cells Counted 200
[2020-12-20 06:59] LABS: Platelet Estimate Consistent w Auto
--- NOTE | 2020-12-20 08:03 | Progress Note ---
Assessment and Plan Assessment and plan: Sepsis Aspiration pneumonia Acute hypoxic respiratory failure Acute COPD exacerbation Atrial fibrillation Vascular dementia Cerebral atherosclerosis Moderate protein calorie malnutrition Hyperlipidemia History CVA Diverticulosis Constipation 12/19/2020. Continue IV antibiotics of ceftriaxone and azithromycin. Follow-up serial chest x-ray. Check blood cultures x2. PT evaluation. Start steroids IV. 12/20/2020. Continue IV antibiotics of ceftriaxone and azithromycin. Blood cultures are pending. Leukocytosis likely related to steroids. Restart home medications. Case management consultation for placement History Interval history: No new issues overnight Hospitalist Physical - Constitutional Vitals: Temp Pulse Resp BP Pulse Ox 97.4 F L 94 H 22 122/61 96 12/20/20 04:49 12/20/20 04:49 12/20/20 04:49 12/20/20 04:49 12/20/20 04:49 General appearance: Present: no acute distress, well-nourished - EENT Eyes: Present: PERRL, EOM intact ENT: hearing intact, clear oral mucosa, dentition normal - Neck Neck: Present: supple, normal ROM - Respiratory Respiratory effort: normal Respiratory: bilateral: CTA - Cardiovascular Rhythm: regular Heart Sounds: Present: S1 & S2. Absent: gallop, rub - Extremities Extremities: no ischemia, No edema, Full ROM - Abdominal General gastrointestinal: soft, non-tender, non-distended, normal bowel sounds - Integumentary Integumentary: Present: clear, warm, dry - Neurologic Neurologic: CNII-XII intact, moves all extremities HEART Score - HEART Score Troponin: Troponin T 0.102 ng/mL (0.00-0.029) H* 12/19/20 12:42 Results - Labs CBC & Chem 7: 12/20/20 05:02 12/20/20 05:02 Labs: Laboratory Last Values WBC 23.2 K/mm3 (4.5-11.0) H 12/20/20 05:02 RBC 4.84 M/mm3 (3.65-5.03) 12/20/20 05:02 Hgb 15.2 gm/dl (10.1-14.3) H 12/20/20 05:02 Hct 45.0 % (30.3-42.9) H 12/20/20 05:02 MCV 93 fl (79-97) 12/20/20 05:02 MCH 31 pg (28-32) 12/20/20 05:02 MCHC 34 % (30-34) 12/20/20 05:02 RDW 13.6 % (13.2-15.2) 12/20/20 05:02 Plt Count 387 K/mm3 (140-440) 12/20/20 05:02 Lymph % (Auto) 2.4 % (13.4-35.0) L 12/18/20 16:06 [place] % (Auto) 9.0 % (0.0-7.3) H 12/18/20 16:06 Eos % (Auto) 0.1 % (0.0-4.3) 12/18/20 16:06 Baso % (Auto) 1.2 % (0.0-1.8) 12/18/20 16:06 Lymph # (Auto) 0.4 K/mm3 (1.2-5.4) L 12/18/20 16:06 [place] # (Auto) 1.5 K/mm3 (0.0-0.8) H 12/18/20 16:06 Eos # (Auto) 0.0 K/mm3 (0.0-0.4) 12/18/20 16:06 Baso # (Auto) 0.2 K/mm3 (0.0-0.1) H 12/18/20 16:06 Add Manual Diff Complete 12/20/20 05:02 Total Counted 200 12/20/20 05:02 Seg Neutrophils % Industrial Ecology Technician 12/20/20 05:02 Seg Neuts % (Manual) 93.0 % (40.0-70.0) H 12/20/20 05:02 Lymphocytes % (Manual) 1.5 % (13.4-35.0) L 12/20/20 05:02 Monocytes % (Manual) 5.5 % (0.0-7.3) 12/20/20 05:02 Nucleated RBC % Not Reportable 12/20/20 05:02 Seg Neutrophils # 14.2 K/mm3 (1.8-7.7) H 12/18/20 16:06 Seg Neutrophils # Man 21.6 K/mm3 (1.8-7.7) H 12/20/20 05:02 Band Neutrophils # 0.0 K/mm3 12/20/20 05:02 Lymphocytes # (Manual) 0.3 K/mm3 (1.2-5.4) L 12/20/20 05:02 Abs React Lymphs (Man) 0.0 K/mm3 12/20/20 05:02 Monocytes # (Manual) 1.3 K/mm3 (0.0-0.8) H 12/20/20 05:02 Eosinophils # (Manual) 0.0 K/mm3 (0.0-0.4) 12/20/20 05:02 Basophils # (Manual) 0.0 K/mm3 (0.0-0.1) 12/20/20 05:02 Metamyelocytes # 0.0 K/mm3 12/20/20 05:02 Myelocytes # 0.0 K/mm3 12/20/20 05:02 Promyelocytes # 0.0 K/mm3 12/20/20 05:02 Blast Cells # 0.0 K/mm3 12/20/20 05:02 WBC Morphology Not Reportable 12/20/20 05:02 Hypersegmented Neuts Not Reportable 12/20/20 05:02 Hyposegmented Neuts Not Reportable 12/20/20 05:02 Hypogranular Neuts Not Reportable 12/20/20 05:02 Smudge Cells Not Reportable 12/20/20 05:02 Toxic Granulation Not Reportable 12/20/20 05:02 Toxic Vacuolation Not Reportable 12/20/20 05:02 Dohle Bodies Not Reportable 12/20/20 05:02 Pelger-Huet Anomaly Not Reportable 12/20/20 05:02 Mina Rods Not Reportable 12/20/20 05:02 Platelet Estimate Consistent w auto 12/20/20 05:02 Clumped Platelets Not Reportable 12/20/20 05:02 Plt Clumps, EDTA Not Reportable 12/20/20 05:02 Large Platelets Not Reportable 12/20/20 05:02 Giant Platelets Not Reportable 12/20/20 05:02 Platelet Satelliting Not Reportable 12/20/20 05:02 Plt Morphology Comment Not Reportable 12/20/20 05:02 RBC Morphology Not Reportable 12/20/20 05:02 Dimorphic RBCs Not Reportable 12/20/20 05:02 Polychromasia Not Reportable 12/20/20 05:02 Hypochromasia Not Reportable 12/20/20 05:02 Poikilocytosis Not Reportable 12/20/20 05:02 Anisocytosis 1+ 12/20/20 05:02 Microcytosis Not Reportable 12/20/20 05:02 Macrocytosis Not Reportable 12/20/20 05:02 Spherocytes Not Reportable 12/20/20 05:02 Pappenheimer Bodies Not Reportable 12/20/20 05:02 Sickle Cells Not Reportable 12/20/20 05:02 Target Cells Not Reportable 12/20/20 05:02 Tear Drop Cells Not Reportable 12/20/20 05:02 Ovalocytes Not Reportable 12/20/20 05:02 Helmet Cells Not Reportable 12/20/20 05:02 [place] Bodies Not Reportable 12/20/20 05:02 Excello Rings Not Reportable 12/20/20 05:02 [place] Cells Not Reportable 12/20/20 05:02 Bite Cells Not Reportable 12/20/20 05:02 Crenated Cell Not Reportable 12/20/20 05:02 Elliptocytes Not Reportable 12/20/20 05:02 Acanthocytes (Spur) Not Reportable 12/20/20 05:02 Rouleaux Not Reportable 12/20/20 05:02 Hemoglobin C Crystals Not Reportable 12/20/20 05:02 Schistocytes Not Reportable 12/20/20 05:02 Malaria parasites Not Reportable 12/20/20 05:02 David Bodies Not Reportable 12/20/20 05:02 Hem Pathologist Commnt No 12/20/20 05:02 Sodium 142 mmol/L (137-145) 12/20/20 05:02 Potassium 3.5 mmol/L (3.6-5.0) L 12/20/20 05:02 Chloride 101.2 mmol/L (98-107) 12/20/20 05:02 Carbon Dioxide 28 mmol/L (22-30) 12/20/20 05:02 Anion Gap 16 mmol/L 12/20/20 05:02 BUN 16 mg/dL (7-17) 12/20/20 05:02 Creatinine 0.6 mg/dL (0.6-1.2) 12/20/20 05:02 Estimated GFR > 60 ml/min 12/20/20 05:02 BUN/Creatinine Ratio 27 % 12/20/20 05:02 Glucose 119 mg/dL (65-100) H 12/20/20 05:02 Lactic Acid 1.60 mmol/L (0.7-2.0) 12/19/20 05:10 Calcium 9.2 mg/dL (8.4-10.2) 12/20/20 05:02 Magnesium 2.00 mg/dL (1.7-2.3) 12/18/20 19:30 Total Bilirubin 0.40 mg/dL (0.1-1.2) 12/19/20 05:10 AST 27 units/L (5-40) 12/19/20 05:10 ALT 31 units/L (7-56) 12/19/20 05:10 Alkaline Phosphatase 170 units/L (35-129) H 12/19/20 05:10 Troponin T 0.102 ng/mL (0.00-0.029) H* 12/19/20 12:42 NT-Pro-B Natriuret Pep 4882 pg/mL (0-900) H 12/18/20 16:06 Total Protein 4.9 g/dL (6.3-8.2) L 12/19/20 05:10 Albumin 2.2 g/dL (3.9-5) L 12/19/20 05:10 Albumin/Globulin Ratio 0.8 % 12/19/20 05:10 Triglycerides 83 mg/dL (2-149) 12/19/20 12:42 Cholesterol 106 mg/dL (50-199) 12/19/20 12:42 LDL Cholesterol Direct 45 mg/dL (50-130) L 12/19/20 12:42 HDL Cholesterol 50 mg/dL (40-59) 12/19/20 12:42 Cholesterol/HDL Ratio 2.12 % 12/19/20 12:42 TSH 3.170 mlU/mL (0.270-4.200) 12/18/20 19:30 Free T4 1.24 ng/dL (0.76-1.46) 12/18/20 19:30 Microbiology: Microbiology 12/19/20 12:42 Peripheral/Venous Blood Culture - Preliminary Culture in Progress 12/19/20 12:23 Peripheral/Venous Blood Culture - Preliminary Culture in Progress Acuña/IV: Voiding Method External Female Catheter Active Medications - Current Medications Current Medications: Generic Name Dose Route Start Last Admin Trade Name Freq PRN Reason Stop Dose Admin Acetaminophen 650 mg 12/18/20 19:10 Acetaminophen 325 Mg Tab PO Q4H PRN Pain MILD(1-3)/Fever >100.5/LUTHER Albuterol 2.5 mg 12/18/20 19:10 Albuterol 2.5 Mg/3 Ml Nebu IH Q4HRT PRN Shortness Of Breath Heparin Sodium (Porcine) 5,000 unit 12/18/20 22:00 12/19/20 21:36 Heparin 5,000 Unit/1 Ml Vial SUB-Q 5,000 unit Q12HR RICA Administration Hydromorphone HCl 0.25 mg 12/18/20 19:10 Hydromorphone 1 Mg/1 Ml Inj IV Q4H PRN Pain, Moderate (4-6) Hydromorphone HCl 0.5 mg 12/18/20 19:10 Hydromorphone 1 Mg/1 Ml Inj IV Q12H PRN Pain , Severe (7-10) Metronidazole 500 mg in 100 mls @ 100 mls/hr 12/18/20 20:00 12/20/20 05:40 Flagyl 500 Mg/100 Ml IV Infused Q8H RICA Infusion Protocol Ceftriaxone Sodium 2 gm in 100 mls @ 200 mls/hr 12/18/20 21:00 12/19/20 22:40 Rocephin/Ns 2 Gm/100 Ml IV Infused Q24H RICA Infusion Protocol Azithromycin 500 mg in 250 mls @ 250 mls/hr 12/18/20 20:00 12/19/20 23:55 Zithromax/Ns IV Infused Q24H RICA Infusion Protocol Methylprednisolone Sodium Succinate 40 mg 12/19/20 10:00 12/19/20 21:37 Methylprednisolone Sod Succinate 40 Mg/1 Ml Inj IV 40 mg Q12HR RICA Administration Metoprolol Tartrate 25 mg 12/19/20 12:00 12/19/20 21:36 Metoprolol Tartrate 25 Mg Tab PO 25 mg BID RICA Administration Ondansetron HCl 4 mg 12/18/20 19:10 Ondansetron 4 Mg/2 Ml Inj IV Q8H PRN Nausea And Vomiting Oxycodone/Acetaminophen 1 tab 12/18/20 19:10 Oxycodone /Acetaminophen 5-325mg Tab PO Q12H PRN Pain, Moderate (4-6) Sodium Chloride 10 ml 12/18/20 22:00 12/19/20 21:55 Sodium Chloride 0.9% 10 Ml Flush Syringe IV 10 ml BID RICA Administration Sodium Chloride 10 ml 12/18/20 19:10 Sodium Chloride 0.9% 10 Ml Flush Syringe IV PRN PRN LINE FLUSH Nutrition/Malnutrition Assess - Dietary Evaluation Nutrition/Malnutrition Findings: Nutrition Notes Start: 12/19/20 11:30 Freq: Status: Active Protocol: Document 12/19/20 11:30 MK (Rec: 12/19/20 11:35 MK [id number]) Nutrition Notes Need for Assessment generated from: chinese herbalist,MST Initial or Follow up Assessment Current Diagnosis COPD,Sepsis,Hypertension,Heart Failure,Stroke,Hyperlipidemia Other Pertinent Diagnosis penu, dementia, OA Current Diet NPO Labs/Tests Reviewed Pertinent Medications Solu medrol Height 5 ft 6 in Weight 47.627 kg Usual Body Weight 61.81 kg [place] Body Weight (kg) 59.09 BMI 16.9 Intake Prior to Admission Good Weight change and time frame 23% wt loss in 3-4 year (not significant) Weight Status Underweight Subjective/Other Information RN screen for MST. Pt reports weight loss over 3-4 years. She has had no appetite changes. Will follow for stable intakes. Waiting for DINING CHAIR SEAT CUSHION TRIMMER eval. Burn Absent Trauma Absent Difficulty In Swallowing Current % PO Negligible Minimum of two criteria No Body Fat Depletion Mild depletion (non-severe) #1 Nutrition Diagnosis Predicted suboptimal energy intake Etiology dementia, advanced age As Evidenced by Signs and Symptoms BMI 16.9 Is patient on ventilator? No Is Patient Ambulatory and/or Out of Bed No REE-([facility]-confined to bed) 1139.112 Kcal/Kg value to use for calculation 29 Approximate Energy Requirements Using 1381 kcal/Kg Calculation Used for Recommendations Kcal/kg Additional Notes Protein: (1-1.2g/kg) 48-58g Fluid: 1ml/kcal or per MD Nutrition Intervention Change Diet Order: Advance as able Goal #1 Diet advancement Follow-Up By: 12/21/20 Additional Comments F/u for diet advancement and intakes
[2020-12-20] MEDS: CETIRIZINE 10 MG TAB PO SCH (09:55)
[2020-12-20] MEDS: ASPIRIN EC 81 MG TAB PO SCH (09:55)
[2020-12-20] MEDS: ARIPiprazole 10 MG TAB PO SCH (09:55)
[2020-12-20] MEDS: methylPREDNISolone Sod Succinate 40 MG/1 ML INJ IV SCH ×2 (09:56→21:42)
[2020-12-20] MEDS: MEMANTINE 10 MG TAB PO SCH ×2 (09:56→21:48)
[2020-12-20] MEDS: HEPARIN 5,000 UNIT/1 ML VIAL SUB-Q SCH ×2 (09:56→21:48)
[2020-12-20] MEDS ORDERED: atenoloL 50 MG TAB PO SCH (10:00)
--- NOTE | 2020-12-20 10:00 | Progress Note ---
Assessment and Plan 85-year-old female with atrial fibrillation vascular dementia hypertension hyperlipidemia coronary arterial disease has a non-ST elevation [place] type II with A. fib with RVR has moderate LV dysfunction patient be treated conservatively given her dementia discussed this patient's in detail not a candidate for oral anticoagulation. Stop atenolol start Lopressor 50 mg tid for rate control continue aspirin statin. Patient is not in overt heart failure at this time patient given low blood pressure hold KELSEY and ARB. - Patient Problems (1) Acute respiratory failure with hypoxia Current Visit: Yes Status: Acute (2) Aspiration pneumonitis Current Visit: Yes Status: Acute (3) Atrial fibrillation Current Visit: Yes Status: Chronic Qualifiers: Atrial fibrillation type: persistent (not longstanding) Qualified Code(s): I48.19 - Other persistent atrial fibrillation; I48.1 - Persistent atrial fibrillation (4) Cerebral atherosclerosis Current Visit: Yes Status: Acute (5) DVT prophylaxis Current Visit: Yes Status: Acute (6) Dehydration Current Visit: Yes Status: Acute (7) Malnutrition Current Visit: Yes Status: Acute Qualifiers: Protein-calorie malnutrition severity: severe (8) Vascular dementia Current Visit: Yes Status: Acute Qualifiers: Dementia behavioral disturbance: without behavioral disturbance Qualified Code(s): F01.50 - Vascular dementia without behavioral disturbance (9) Non-STEMI (non-ST elevated myocardial infarction) Current Visit: Yes Status: Acute (10) Cardiomyopathy Current Visit: Yes Status: Acute Qualifiers: Cardiomyopathy type: dilated Qualified Code(s): I42.0 - Dilated cardiomyopathy Subjective Date of service: 12/20/20 Principal diagnosis: afib and nonstemi Interval history: pt is awake and speaks but demented not coherent Objective Vital Signs Temp Pulse Resp BP BP Pulse Ox 12/20/20 07:17 97.9 F 78 16 125/57 94 12/20/20 04:49 97.4 F L 94 H 22 122/61 96 12/20/20 02:00 96 H 12/19/20 23:37 97.7 F 102 H 20 128/59 96 12/19/20 21:36 125 H 111/74 12/19/20 19:48 97.7 F 125 H 20 111/74 96 12/19/20 18:00 122 H 12/19/20 16:13 97.9 F 70 16 100/56 96 12/19/20 10:51 18 98 12/19/20 10:43 97.9 F 90 16 118/67 95 - Physical Examination HEENT: Positive: PERRL, Mucus Membranes Moist Neck: Positive: neck supple, trachea midline Cardiac: Positive: Irregularly Regular Lungs: Positive: clear to auscultation Neuro: Positive: Grossly Intact Abdomen: Positive: Soft, Active Bowel Sounds. Negative: Tender, Distended Skin: Positive: Clear Incision: Cardiac Cath Site Musculoskeletal: No Pain, Normal Range of Motion Extremities: Present: normal. Absent: edema - Labs and Meds Lipids 12/19/20 Range/Units 12:42 Triglycerides 83 (2-149) mg/dL Cholesterol 106 (50-199) mg/dL HDL Cholesterol 50 (40-59) mg/dL Cholesterol/HDL Ratio 2.12 % CBC 12/20/20 Range/Units 05:02 WBC 23.2 H (4.5-11.0) K/mm3 RBC 4.84 (3.65-5.03) M/mm3 Hgb 15.2 H (10.1-14.3) gm/dl Hct 45.0 H (30.3-42.9) % Plt Count 387 (140-440) K/mm3 Comprehensive Metabolic Panel 12/20/20 Range/Units 05:02 Sodium 142 (137-145) mmol/L Potassium 3.5 L (3.6-5.0) mmol/L Chloride 101.2 (98-107) mmol/L Carbon Dioxide 28 (22-30) mmol/L BUN 16 (7-17) mg/dL Creatinine 0.6 (0.6-1.2) mg/dL Glucose 119 H (65-100) mg/dL Calcium 9.2 (8.4-10.2) mg/dL - Imaging and Cardiology Echo: report reviewed (ef35-40%) - Telemetry EKG Rhythm: Atrial Fibrillation - EKG Sinus rhythms and dysrhythmias: sinus rhythm
[2020-12-20] MEDS: METOPROLOL TARTRATE 50 MG TAB PO SCH ×3 (11:13→21:48)
[2020-12-20] MEDS: CHOLECALCIFEROL (VIT D3) 5,000 UNIT TAB PO SCH (11:14)
[2020-12-20] MEDS: cefTRIAXone/NS 2 GM/100 ML 2 GM/100 ML BAG IV SCH (21:35)
[2020-12-20] MEDS: AZITHROMYCIN/NS 500 MG/250 ML 500 MG/250 ML BAG IV SCH (21:45)
[2020-12-21] MEDS: metroNIDAZOLE/NS 500 MG/100 ML 500 MG/100 ML BAG IV SCH ×2 (04:39→12:41)
[2020-12-21] MEDS: ALPRAZolam 0.25 MG TAB PO PRN ×2 (05:03→20:12)
[2020-12-21 05:05] LABS: Hematocrit 46.2 % (30.3-42.9); Hemoglobin 15.7 gm/dl (10.1-14.3); Mean Corpuscular HGB Conc 34 % (30-34); Mean Corpuscular Volume 93 fl (79-97); Platelet Count 381 K/mm3 (140-440); Red Blood Count 4.97 M/mm3 (3.65-5.03); Red Cell Distribution Width 13.5 % (13.2-15.2)
[2020-12-21 05:26] LABS: Blood Urea Nitrogen 17 mg/dL (7-17); Calcium 8.9 mg/dL (8.4-10.2); Hemolysis Index 18
[2020-12-21 05:30] LABS: BUN/Creatinine Ratio 24
[2020-12-21 06:41] LABS: Anisocytosis 1+; Total Cells Counted 100
[2020-12-21 06:42] LABS: Platelet Estimate Consistent w Auto
[2020-12-21] MEDS: METOPROLOL TARTRATE 50 MG TAB PO SCH ×4 (08:00→20:11)
--- NOTE | 2020-12-21 08:03 | Progress Note ---
Assessment and Plan Assessment and plan: Sepsis Aspiration pneumonia Acute hypoxic respiratory failure Acute COPD exacerbation Atrial fibrillation Vascular dementia Cerebral atherosclerosis Moderate protein calorie malnutrition Hyperlipidemia History CVA Diverticulosis Constipation 12/19/2020. Continue IV antibiotics of ceftriaxone and azithromycin. Follow-up serial chest x-ray. Check blood cultures x2. PT evaluation. Start steroids IV. 12/20/2020. Continue IV antibiotics of ceftriaxone and azithromycin. Blood cultures are pending. Leukocytosis likely related to steroids. Restart home medications. Case management consultation for placement 12/21/2020. Continue IV antibiotics of ceftriaxone and azithromycin. Blood cultures negative x24 hours. Leukocytosis likely related to steroids. Case management consultation for placement. Recheck chest x-ray. Patient is encephalopathic and requires restraints for safety. History Interval history: No new issues overnight Hospitalist Physical - Constitutional Vitals: Temp Pulse Resp BP Pulse Ox 98.5 F 89 16 141/78 96 12/21/20 07:28 12/21/20 07:28 12/21/20 07:28 12/21/20 07:28 12/21/20 07:28 General appearance: Present: no acute distress, well-nourished - EENT Eyes: Present: PERRL, EOM intact ENT: hearing intact, clear oral mucosa, dentition normal - Neck Neck: Present: supple, normal ROM - Respiratory Respiratory effort: normal Respiratory: bilateral: CTA - Cardiovascular Rhythm: regular Heart Sounds: Present: S1 & S2. Absent: gallop, rub - Extremities Extremities: no ischemia, No edema, Full ROM - Abdominal General gastrointestinal: soft, non-tender, non-distended, normal bowel sounds - Integumentary Integumentary: Present: clear, warm, dry - Neurologic Neurologic: CNII-XII intact, moves all extremities HEART Score - HEART Score Troponin: Troponin T 0.102 ng/mL (0.00-0.029) H* 12/19/20 12:42 Results - Labs CBC & Chem 7: 12/21/20 04:12 12/21/20 04:12 Labs: Laboratory Last Values WBC 19.9 K/mm3 (4.5-11.0) H 12/21/20 04:12 RBC 4.97 M/mm3 (3.65-5.03) 12/21/20 04:12 Hgb 15.7 gm/dl (10.1-14.3) H 12/21/20 04:12 Hct 46.2 % (30.3-42.9) H 12/21/20 04:12 MCV 93 fl (79-97) 12/21/20 04:12 MCH 32 pg (28-32) 12/21/20 04:12 MCHC 34 % (30-34) 12/21/20 04:12 RDW 13.5 % (13.2-15.2) 12/21/20 04:12 Plt Count 381 K/mm3 (140-440) 12/21/20 04:12 Lymph % (Auto) 2.4 % (13.4-35.0) L 12/18/20 16:06 [place] % (Auto) 9.0 % (0.0-7.3) H 12/18/20 16:06 Eos % (Auto) 0.1 % (0.0-4.3) 12/18/20 16:06 Baso % (Auto) 1.2 % (0.0-1.8) 12/18/20 16:06 Lymph # (Auto) 0.4 K/mm3 (1.2-5.4) L 12/18/20 16:06 [place] # (Auto) 1.5 K/mm3 (0.0-0.8) H 12/18/20 16:06 Eos # (Auto) 0.0 K/mm3 (0.0-0.4) 12/18/20 16:06 Baso # (Auto) 0.2 K/mm3 (0.0-0.1) H 12/18/20 16:06 Add Manual Diff Complete 12/21/20 04:12 Total Counted 100 12/21/20 04:12 Seg Neutrophils % Furnishings Conservator 12/21/20 04:12 Seg Neuts % (Manual) 97.0 % (40.0-70.0) H 12/21/20 04:12 Lymphocytes % (Manual) 2.0 % (13.4-35.0) L 12/21/20 04:12 Monocytes % (Manual) 1.0 % (0.0-7.3) 12/21/20 04:12 Nucleated RBC % Not Reportable 12/21/20 04:12 Seg Neutrophils # 14.2 K/mm3 (1.8-7.7) H 12/18/20 16:06 Seg Neutrophils # Man 19.3 K/mm3 (1.8-7.7) H 12/21/20 04:12 Band Neutrophils # 0.0 K/mm3 12/21/20 04:12 Lymphocytes # (Manual) 0.4 K/mm3 (1.2-5.4) L 12/21/20 04:12 Abs React Lymphs (Man) 0.0 K/mm3 12/21/20 04:12 Monocytes # (Manual) 0.2 K/mm3 (0.0-0.8) 12/21/20 04:12 Eosinophils # (Manual) 0.0 K/mm3 (0.0-0.4) 12/21/20 04:12 Basophils # (Manual) 0.0 K/mm3 (0.0-0.1) 12/21/20 04:12 Metamyelocytes # 0.0 K/mm3 12/21/20 04:12 Myelocytes # 0.0 K/mm3 12/21/20 04:12 Promyelocytes # 0.0 K/mm3 12/21/20 04:12 Blast Cells # 0.0 K/mm3 12/21/20 04:12 WBC Morphology Not Reportable 12/21/20 04:12 Hypersegmented Neuts Not Reportable 12/21/20 04:12 Hyposegmented Neuts Not Reportable 12/21/20 04:12 Hypogranular Neuts Not Reportable 12/21/20 04:12 Smudge Cells Not Reportable 12/21/20 04:12 Toxic Granulation Not Reportable 12/21/20 04:12 Toxic Vacuolation Not Reportable 12/21/20 04:12 Dohle Bodies Not Reportable 12/21/20 04:12 Pelger-Huet Anomaly Not Reportable 12/21/20 04:12 Mina Rods Not Reportable 12/21/20 04:12 Platelet Estimate Consistent w auto 12/21/20 04:12 Clumped Platelets Not Reportable 12/21/20 04:12 Plt Clumps, EDTA Not Reportable 12/21/20 04:12 Large Platelets Not Reportable 12/21/20 04:12 Giant Platelets Not Reportable 12/21/20 04:12 Platelet Satelliting Not Reportable 12/21/20 04:12 Plt Morphology Comment Not Reportable 12/21/20 04:12 RBC Morphology Not Reportable 12/21/20 04:12 Dimorphic RBCs Not Reportable 12/21/20 04:12 Polychromasia Not Reportable 12/21/20 04:12 Hypochromasia Not Reportable 12/21/20 04:12 Poikilocytosis Not Reportable 12/21/20 04:12 Anisocytosis 1+ 12/21/20 04:12 Microcytosis Not Reportable 12/21/20 04:12 Macrocytosis Not Reportable 12/21/20 04:12 Spherocytes Not Reportable 12/21/20 04:12 Pappenheimer Bodies Not Reportable 12/21/20 04:12 Sickle Cells Not Reportable 12/21/20 04:12 Target Cells Not Reportable 12/21/20 04:12 Tear Drop Cells Not Reportable 12/21/20 04:12 Ovalocytes Not Reportable 12/21/20 04:12 Helmet Cells Not Reportable 12/21/20 04:12 [place] Bodies Not Reportable 12/21/20 04:12 [place] Rings Not Reportable 12/21/20 04:12 [place] Cells Not Reportable 12/21/20 04:12 Bite Cells Not Reportable 12/21/20 04:12 Crenated Cell Not Reportable 12/21/20 04:12 Elliptocytes Not Reportable 12/21/20 04:12 Acanthocytes (Spur) Not Reportable 12/21/20 04:12 Rouleaux Not Reportable 12/21/20 04:12 Hemoglobin C Crystals Not Reportable 12/21/20 04:12 Schistocytes Not Reportable 12/21/20 04:12 Malaria parasites Not Reportable 12/21/20 04:12 David Bodies Not Reportable 12/21/20 04:12 Hem Pathologist Commnt No 12/21/20 04:12 Sodium 143 mmol/L (137-145) 12/21/20 04:12 Potassium 4.1 mmol/L (3.6-5.0) 12/21/20 04:12 Chloride 103.9 mmol/L (98-107) 12/21/20 04:12 Carbon Dioxide 24 mmol/L (22-30) 12/21/20 04:12 Anion Gap 19 mmol/L 12/21/20 04:12 BUN 17 mg/dL (7-17) 12/21/20 04:12 Creatinine 0.7 mg/dL (0.6-1.2) 12/21/20 04:12 Estimated GFR > 60 ml/min 12/21/20 04:12 BUN/Creatinine Ratio 24 % 12/21/20 04:12 Glucose 135 mg/dL (65-100) H 12/21/20 04:12 POC Glucose 122 mg/dL (70-105) H 12/21/20 07:41 Lactic Acid 1.60 mmol/L (0.7-2.0) 12/19/20 05:10 Calcium 8.9 mg/dL (8.4-10.2) 12/21/20 04:12 Magnesium 2.00 mg/dL (1.7-2.3) 12/18/20 19:30 Total Bilirubin 0.40 mg/dL (0.1-1.2) 12/19/20 05:10 AST 27 units/L (5-40) 12/19/20 05:10 ALT 31 units/L (7-56) 12/19/20 05:10 Alkaline Phosphatase 170 units/L (35-129) H 12/19/20 05:10 Troponin T 0.102 ng/mL (0.00-0.029) H* 12/19/20 12:42 NT-Pro-B Natriuret Pep 4882 pg/mL (0-900) H 12/18/20 16:06 Total Protein 4.9 g/dL (6.3-8.2) L 12/19/20 05:10 Albumin 2.2 g/dL (3.9-5) L 12/19/20 05:10 Albumin/Globulin Ratio 0.8 % 12/19/20 05:10 Triglycerides 83 mg/dL (2-149) 12/19/20 12:42 Cholesterol 106 mg/dL (50-199) 12/19/20 12:42 LDL Cholesterol Direct 45 mg/dL (50-130) L 12/19/20 12:42 HDL Cholesterol 50 mg/dL (40-59) 12/19/20 12:42 Cholesterol/HDL Ratio 2.12 % 12/19/20 12:42 TSH 3.170 mlU/mL (0.270-4.200) 12/18/20 19:30 Free T4 1.24 ng/dL (0.76-1.46) 12/18/20 19:30 Microbiology: Microbiology 12/19/20 12:42 Peripheral/Venous Blood Culture - Preliminary NO GROWTH AFTER 24 HOURS 12/19/20 12:23 Peripheral/Venous Blood Culture - Preliminary NO GROWTH AFTER 24 HOURS Acuña/IV: Voiding Method External Female Catheter Active Medications - Current Medications Current Medications: Generic Name Dose Route Start Last Admin Trade Name Freq PRN Reason Stop Dose Admin Acetaminophen 650 mg 12/18/20 19:10 Acetaminophen 325 Mg Tab PO Q4H PRN Pain MILD(1-3)/Fever >100.5/LUTHER Albuterol 2.5 mg 12/18/20 19:10 Albuterol 2.5 Mg/3 Ml Nebu IH Q4HRT PRN Shortness Of Breath Alprazolam 0.25 mg 12/20/20 10:00 12/21/20 05:03 Alprazolam 0.25 Mg Tab PO 0.25 mg BID PRN Administration Anxiety Aripiprazole 10 mg 12/20/20 10:00 12/20/20 09:55 Aripiprazole 10 Mg Tab PO 10 mg DAILY RICA Administration Aspirin 81 mg 12/20/20 10:00 12/20/20 09:55 Aspirin Ec 81 Mg Tab PO 81 mg QDAY RICA Administration Atorvastatin Calcium 10 mg 12/20/20 22:00 12/20/20 21:48 Atorvastatin 10 Mg Tab PO 10 mg QHS RICA Administration Cetirizine HCl 10 mg 12/20/20 10:00 12/20/20 09:55 Cetirizine 10 Mg Tab PO 10 mg DAILY RICA Administration Cholecalciferol 5,000 unit 12/20/20 10:00 12/20/20 11:14 Cholecalciferol (Vit D3) 5,000 Unit Tab PO 5,000 unit DAILY RICA Administration Heparin Sodium (Porcine) 5,000 unit 12/18/20 22:00 12/20/20 21:48 Heparin 5,000 Unit/1 Ml Vial SUB-Q 5,000 unit Q12HR RICA Administration Hydromorphone HCl 0.25 mg 12/18/20 19:10 Hydromorphone 1 Mg/1 Ml Inj IV Q4H PRN Pain, Moderate (4-6) Hydromorphone HCl 0.5 mg 12/18/20 19:10 Hydromorphone 1 Mg/1 Ml Inj IV Q12H PRN Pain , Severe (7-10) Metronidazole 500 mg in 100 mls @ 100 mls/hr 12/18/20 20:00 12/21/20 04:39 Flagyl 500 Mg/100 Ml IV 100 mls/hr Q8H RICA Administration Protocol Ceftriaxone Sodium 2 gm in 100 mls @ 200 mls/hr 12/18/20 21:00 12/20/20 21:35 Rocephin/Ns 2 Gm/100 Ml IV 200 mls/hr Q24H RICA Administration Protocol Azithromycin 500 mg in 250 mls @ 250 mls/hr 12/18/20 20:00 12/20/20 21:45 Zithromax/Ns IV 250 mls/hr Q24H RICA Administration Protocol Insulin Human Regular 0 units 12/21/20 11:30 Insulin Regular, Human 100 Units/1 Ml SUB-Q ACHS [facility] Protocol Memantine 10 mg 12/20/20 10:00 12/20/20 21:48 Memantine 10 Mg Tab PO 10 mg BID RICA Administration Methylprednisolone Sodium Succinate 40 mg 12/19/20 10:00 12/20/20 21:42 Methylprednisolone Sod Succinate 40 Mg/1 Ml Inj IV 40 mg Q12HR RICA Administration Metoprolol Tartrate 50 mg 12/20/20 10:30 12/20/20 21:48 Metoprolol Tartrate 50 Mg Tab PO 50 mg TID RICA Administration Ondansetron HCl 4 mg 12/18/20 19:10 Ondansetron 4 Mg/2 Ml Inj IV Q8H PRN Nausea And Vomiting Oxycodone/Acetaminophen 1 tab 12/18/20 19:10 Oxycodone /Acetaminophen 5-325mg Tab PO Q12H PRN Pain, Moderate (4-6) Sodium Chloride 10 ml 12/18/20 22:00 12/20/20 21:38 Sodium Chloride 0.9% 10 Ml Flush Syringe IV 10 ml BID RICA Administration Sodium Chloride 10 ml 12/18/20 19:10 Sodium Chloride 0.9% 10 Ml Flush Syringe IV PRN PRN LINE FLUSH Nutrition/Malnutrition Assess - Dietary Evaluation Nutrition/Malnutrition Findings: Nutrition Notes Start: 12/19/20 11:30 Freq: Status: Active Protocol: Document 12/19/20 11:30 GUERA (Rec: 12/19/20 11:35 MK [id number]) Nutrition Notes Need for Assessment generated from: veterinarian laboratory animal care,MST Initial or Follow up Assessment Current Diagnosis COPD,Sepsis,Hypertension,Heart Failure,Stroke,Hyperlipidemia Other Pertinent Diagnosis penu, dementia, OA Current Diet NPO Labs/Tests Reviewed Pertinent Medications Solu medrol Height 5 ft 6 in Weight 47.627 kg Usual Body Weight 61.81 kg [place] Body Weight (kg) 59.09 BMI 16.9 Intake Prior to Admission Good Weight change and time frame 23% wt loss in 3-4 year (not significant) Weight Status Underweight Subjective/Other Information RN screen for MST. Pt reports weight loss over 3-4 years. She has had no appetite changes. Will follow for stable intakes. Waiting for TITLE CLERK eval. Burn Absent Trauma Absent Difficulty In Swallowing Current % PO Negligible Minimum of two criteria No Body Fat Depletion Mild depletion (non-severe) #1 Nutrition Diagnosis Predicted suboptimal energy intake Etiology dementia, advanced age As Evidenced by Signs and Symptoms BMI 16.9 Is patient on ventilator? No Is Patient Ambulatory and/or Out of Bed No REE-([facility]-confined to bed) 1139.112 Kcal/Kg value to use for calculation 29 Approximate Energy Requirements Using 1381 kcal/Kg Calculation Used for Recommendations Kcal/kg Additional Notes Protein: (1-1.2g/kg) 48-58g Fluid: 1ml/kcal or per MD Nutrition Intervention Change Diet Order: Advance as able Goal #1 Diet advancement Follow-Up By: 12/21/20 Additional Comments F/u for diet advancement and intakes
--- NOTE | 2020-12-21 09:23 | XRay Report ---
CHEST - 1 VIEW INDICATION: aspiration Pna COMPARISON: 12/18/2020 FINDINGS: Support devices: None Heart: Stable cardiomediastinal silhouette. Lungs/pleura: Stable appearance of the bilateral lung opacities. No consolidation, large pleural eff usion or pneumothorax is detected. Additional findings: None. IMPRESSION: No significant interval change. Signer Name: Luke Gann Jr, MD Signed: 12/21/2020 9:19 AM Workstation Name: [id number]
--- NOTE | 2020-12-21 10:08 | Progress Note ---
Assessment and Plan AFIB w/RVR * Patient rate is controlled. Continue metoprolol 50mg PO TID. If patient becomes tachycardiac may switch to Toprol 100mg PO BID * OAC is held due to fall risk * Echo 12/18/2020- EF 35-40%, normal left ventricular wall thickness, right ventricular systolic function normal, moderately dilated right atrium, mild aortic regurgitation, trace mitral and tricuspid regurgitation, no pulmonic regurgitation. Vascular Dementia * Recommend continuing Aspirin 81 mg PO QD and Atrorvastin 10mg PO QHS * Managed by primary team Patient seen in conjunction with Dr. Price who agrees with this assessment and plan of care. Will continue to follow - Patient Problems (1) Acute respiratory failure with hypoxia Current Visit: Yes Status: Acute (2) Aspiration pneumonitis Current Visit: Yes Status: Acute (3) Cardiomyopathy Current Visit: Yes Status: Acute Qualifiers: Cardiomyopathy type: dilated Qualified Code(s): I42.0 - Dilated cardiomyopathy (4) DVT prophylaxis Current Visit: Yes Status: Acute (5) Dehydration Current Visit: Yes Status: Acute (6) Malnutrition Current Visit: Yes Status: Acute Qualifiers: Protein-calorie malnutrition severity: severe (7) Non-STEMI (non-ST elevated myocardial infarction) Current Visit: Yes Status: Acute (8) Vascular dementia Current Visit: Yes Status: Acute Qualifiers: Dementia behavioral disturbance: without behavioral disturbance Qualified Code(s): F01.50 - Vascular dementia without behavioral disturbance (9) Atrial fibrillation Current Visit: Yes Status: Chronic Qualifiers: Atrial fibrillation type: persistent (not longstanding) Qualified Code(s): I48.19 - Other persistent atrial fibrillation; I48.1 - Persistent atrial fibrill ation Subjective Date of service: 12/21/20 Principal diagnosis: afib and nonstemi Interval history: Patient resting in bed with no complaints. Reported she was breathing better Afib 90s on with no events on monitor Objective Last Vital Signs Temp 98.5 F 12/21/20 07:28 Pulse 89 12/21/20 07:28 Resp 16 12/21/20 07:28 BP 141/78 12/21/20 07:28 Pulse Ox 96 12/21/20 07:28 - Physical Examination General: No Apparent Distress HEENT: Positive: PERRL, Mucus Membranes Moist Neck: Positive: neck supple, trachea midline Cardiac: Positive: irregularly irregular Lungs: Positive: Normal Breath Sounds Neuro: Positive: Grossly Intact Abdomen: Positive: Soft, Active Bowel Sounds. Negative: Tender, Distended Skin: Positive: Clear Incision: Cardiac Cath Site Musculoskeletal: No Pain, Normal Range of Motion Extremities: Present: normal. Absent: edema - Labs and Meds CBC 12/21/20 Range/Units 04:12 WBC 19.9 H (4.5-11.0) K/mm3 RBC 4.97 (3.65-5.03) M/mm3 Hgb 15.7 H (10.1-14.3) gm/dl Hct 46.2 H (30.3-42.9) % Plt Count 381 (140-440) K/mm3 Comprehensive Metabolic Panel 12/21/20 Range/Units 04:12 Sodium 143 (137-145) mmol/L Potassium 4.1 (3.6-5.0) mmol/L Chloride 103.9 (98-107) mmol/L Carbon Dioxide 24 (22-30) mmol/L BUN 17 (7-17) mg/dL Creatinine 0.7 (0.6-1.2) mg/dL Glucose 135 H (65-100) mg/dL Calcium 8.9 (8.4-10.2) mg/dL - Imaging and Cardiology Echo: report reviewed (ef35-40%) - Telemetry EKG Rhythm: Atrial Fibrillation - EKG Sinus rhythms and dysrhythmias: sinus rhythm Supraventricular dysrhythmia: atrial fibrillation
[2020-12-21] MEDS: ARIPiprazole 10 MG TAB PO SCH (11:41)
[2020-12-21] MEDS: ASPIRIN EC 81 MG TAB PO SCH (11:42)
[2020-12-21] MEDS: HEPARIN 5,000 UNIT/1 ML VIAL SUB-Q SCH ×2 (11:42→21:24)
[2020-12-21] MEDS: CETIRIZINE 10 MG TAB PO SCH (11:42)
[2020-12-21] MEDS: MEMANTINE 10 MG TAB PO SCH ×2 (11:42→21:25)
[2020-12-21] MEDS: methylPREDNISolone Sod Succinate 40 MG/1 ML INJ IV SCH ×2 (11:42→21:24)
[2020-12-21] MEDS: CHOLECALCIFEROL (VIT D3) 5,000 UNIT TAB PO SCH (11:46)
[2020-12-21] MEDS: INSULIN REGULAR, HUMAN 100 UNITS/1 ML SUB-Q SCH ×3 (12:47→21:28)
[2020-12-21] MEDS: AZITHROMYCIN/NS 500 MG/250 ML 500 MG/250 ML BAG IV SCH (20:08)
[2020-12-21] MEDS: cefTRIAXone/NS 2 GM/100 ML 2 GM/100 ML BAG IV SCH (21:23)
[2020-12-21] MEDS: ACETAMINOPHEN 325 MG TAB PO PRN (21:25)
[2020-12-22 06:52] LABS: Hematocrit 41.1 % (30.3-42.9); Hemoglobin 13.7 gm/dl (10.1-14.3); Mean Corpuscular HGB Conc 33 % (30-34); Mean Corpuscular Volume 94 fl (79-97); Platelet Count 304 K/mm3 (140-440); Red Blood Count 4.38 M/mm3 (3.65-5.03)
[2020-12-22 07:09] LABS: Blood Urea Nitrogen 19 mg/dL (7-17); Calcium 8.5 mg/dL (8.4-10.2); Hemolysis Index 8
[2020-12-22 07:10] LABS: BUN/Creatinine Ratio 38
[2020-12-22] MEDS: INSULIN REGULAR, HUMAN 100 UNITS/1 ML SUB-Q SCH ×4 (10:10→21:31)
[2020-12-22] MEDS: CHOLECALCIFEROL (VIT D3) 5,000 UNIT TAB PO SCH (10:14)
[2020-12-22] MEDS: METOPROLOL TARTRATE 50 MG TAB PO SCH ×3 (10:14→20:15)
[2020-12-22] MEDS: MEMANTINE 10 MG TAB PO SCH ×2 (10:14→21:30)
[2020-12-22] MEDS: HEPARIN 5,000 UNIT/1 ML VIAL SUB-Q SCH ×2 (10:14→21:30)
[2020-12-22] MEDS: ARIPiprazole 10 MG TAB PO SCH (10:14)
[2020-12-22] MEDS: ASPIRIN EC 81 MG TAB PO SCH (10:14)
[2020-12-22] MEDS: CETIRIZINE 10 MG TAB PO SCH (10:14)
[2020-12-22] MEDS: methylPREDNISolone Sod Succinate 40 MG/1 ML INJ IV SCH ×2 (10:15→21:30)
[2020-12-22] MEDS: ACETAMINOPHEN 325 MG TAB PO PRN (10:21)
[2020-12-22] MEDS: ALPRAZolam 0.25 MG TAB PO PRN (10:27)
[2020-12-22 10:28] LABS: Band Neutrophils # (Manual) 0.5 K/mm3; Promyelocytes # (Manual) 49.8 K/mm3; Total Cells Counted 100
[2020-12-22 10:29] LABS: Platelet Estimate Consistent w Auto; RBC Morphology Normal
--- NOTE | 2020-12-22 10:33 | Progress Note ---
Assessment and Plan AFIB w/RVR * Patient rate is controlled. Continue metoprolol 50mg PO TID. If patient becomes tachycardiac may switch to Toprol 100mg PO BID * OAC is held due to fall risk * Echo 12/18/2020- EF 35-40%, normal left ventricular wall thickness, right ventricular systolic function normal, moderately dilated right atrium, mild aortic regurgitation, trace mitral and tricuspid regurgitation, no pulmonic regurgitation. * Patient had 9 beat run of VTach overnight however due to patient's other conditions recommend conservative management. Patient otherwise stable from a cardiac standpoint Vascular Dementia * Recommend continuing Aspirin 81 mg PO QD and Atrorvastin 10mg PO QHS * Managed by primary team Patient cardiac status is stable. Patient seen in conjunction with Dr. Price who agrees with this assessment and plan of care. Will see patient as needed - Patient Problems (1) Acute respiratory failure with hypoxia Current Visit: Yes Status: Acute (2) Aspiration pneumonitis Current Visit: Yes Status: Acute (3) Cardiomyopathy Current Visit: Yes Status: Acute Qualifiers: Cardiomyopathy type: dilated Qualified Code(s): I42.0 - Dilated cardiomyopathy (4) DVT prophylaxis Current Visit: Yes Status: Acute (5) Dehydration Current Visit: Yes Status: Acute (6) Malnutrition Current Visit: Yes Status: Acute Qualifiers: Protein-calorie malnutrition severity: severe (7) Non-STEMI (non-ST elevated myocardial infarction) Current Visit: Yes Status: Acute (8) Vascular dementia Current Visit: Yes Status: Acute Qualifiers: Dementia behavioral disturbance: without behavioral disturbance Qualified Code(s): F01.50 - Vascular dementia without behavioral disturbance (9) Atrial fibrillation Current Visit: Yes Status: Chronic Qualifiers: Atrial fibrillation type: persistent (not longstanding) Qualified Code(s): I48.19 - Other persistent atrial fibrillation; I48.1 - Persistent atrial fibrillation Subjective Date of service: 12/22/20 Principal diagnosis: afib and nonstemi Interval history: Patient resting in bed with no complaints. Sinus 70s with PACs and a 9 beat run of vtach overnight on monitor Objective Last Vital Signs Temp 97.4 F L 12/22/20 07:18 Pulse 74 12/22/20 07:18 Resp 18 12/22/20 07:18 BP 126/76 12/22/20 07:18 Pulse Ox 94 12/22/20 08:41 - Physical Examination General: No Apparent Distress HEENT: Positive: PERRL, Mucus Membranes Moist Neck: Positive: neck supple, trachea midline Cardiac: Positive: Reg Rate and Rhythm Lungs: Positive: Normal Breath Sounds Neuro: Positive: Grossly Intact Abdomen: Positive: Soft, Active Bowel Sounds. Negative: Tender, Distended Skin: Positive: Clear Incision: Cardiac Cath Site Musculoskeletal: No Pain, Normal Range of Motion Extremities: Present: normal. Absent: edema - Labs and Meds CBC 12/22/20 Range/Units 04:27 WBC 15.0 H (4.5-11.0) K/mm3 RBC 4.38 (3.65-5.03) M/mm3 Hgb 13.7 (10.1-14.3) gm/dl Hct 41.1 (30.3-42.9) % Plt Count 304 (140-440) K/mm3 Comprehensive Metabolic Panel 12/22/20 Range/Units 04:27 Sodium 148 H (137-145) mmol/L Potassium 4.0 (3.6-5.0) mmol/L Chloride 112.0 H (98-107) mmol/L Carbon Dioxide 28 (22-30) mmol/L BUN 19 H (7-17) mg/dL Creatinine 0.5 L (0.6-1.2) mg/dL Glucose 134 H (65-100) mg/dL Calcium 8.5 (8.4-10.2) mg/dL - Imaging and Cardiology Echo: report reviewed (ef35-40%) - Telemetry EKG Rhythm: Sinus Rhythm - EKG Sinus rhythms and dysrhythmias: sinus rhythm Supraventricular dysrhythmia: atrial premature complexe
--- NOTE | 2020-12-22 12:34 | Progress Note ---
Assessment and Plan Assessment and plan: (1) Atrial fibrillation with rapid ventricular response (now rate controlled) Supportive care, continue medical management. Echo 12/18/2020- EF 35-40%, normal left ventricular wall thickness, right ventricular systolic function normal, moderately dilated right atrium, mild aortic regurgitation, trace mitral and tricuspid regurgitation, no pulmonic regurgitation. Patient had 9 beat run of VTach overnight- cardiology recommends conservative management. Continuous telemetry monitoring Continue metoprolol Cardiology following (2) Acute respiratory failure with hypoxia - improving Telemetry, pulse oximetry Possibly due to aspiration pneumonia 12/21/2020 CXR demonstrates bilateral opacities. Official read per radiology [place] thick liquids, aspiration precautions Continue Rocephin IV, azithromycin IV Continue Solu-Medrol until 12/22. (3) Sepsis (resolved) Management as above (4) Vascular dementia Continue aspirin and atorvastatin. Discontinue Xanax Continue aripiprazole Start Seroquel nightly (5) Cerebral atherosclerosis Supportive care, risk factor reduction, antiplatelet therapy as clinically indicated. (6) Malnutrition Dietary supplementation, increase protein intake when awake and alert only. [place] thick liquids Aspiration precautions (7) Aspiration pneumonitis Supportive care Regimen as above (8) Congestive heart failure Echo findings as above Continue metoprolol Cardiology following (9) DVT prophylaxis SCD to bilateral lower extremities while in bed, prophylactic anticoagulation (10) Advance care planning Case management is consulted. Currently working with [facility] to set up rehab. Restraints can be discontinued and should be offered 24 hours. Discussed with case management about sitter and need for patient monitoring over the next 24 hours. Patient can be discharged back to facility once arrangements have been made. History Interval history: Patient resting comfortably in bed. No acute complaints on encounter. Nasal cannula not appropriately positioned however patient is saturating in the mid 90s. Discussed with nurse about discontinuing O2 and checking sat post discontinuation. Hospitalist Physical - Physical exam Narrative exam: Physical Exam: GENERAL APPEARANCE: Well developed, thin, alert and cooperative, and appears to be in no acute distress. In four-point restraints. In subsequent encounter restraints were discontinued. Answering yes or no questions. HEAD: normocephalic. EYES: PERRL, EOMI. Vision is grossly intact. EARS: No gross deformities NOSE: No nasal discharge. THROAT: Oral cavity and pharynx normal. No inflammation, swelling, exudate, or lesions. Teeth and gingiva in good general condition. NECK: Neck supple, non-tender without lymphadenopathy, masses or thyromegaly. CARDIAC: Normal S1 and S2. No S3, S4 or murmurs. Rhythm is regular. There is no peripheral edema, cyanosis or pallor. Extremities are warm and well perfused. Capillary refill is less than 2 seconds. No carotid bruits. LUNGS: Normal lung exam. Poor air movement. No cyanosis or respiratory distress noted. ABDOMEN: Positive bowel sounds. Soft, nondistended, nontender. No guarding or rebound. No masses. MUSKULOSKELETAL: Adequately aligned spine. ROM intact spine and extremities. No joint erythema or tenderness. BACK: Examination of the spine reveals normal gait and posture EXTREMITIES: No significant deformity or joint abnormality. No edema. Peripheral pulses intact. No varicosities. NEUROLOGICAL: CN II-XII intact. Strength and sensation symmetric and intact throughout. Reflexes 2+ throughout. PSYCHIATRIC: The mental examination revealed the patient was oriented to person. Patient appears to be pleasantly demented. - Constitutional Vitals: Temp Pulse Resp BP Pulse Ox 97.4 F L 74 18 126/76 94 12/22/20 07:18 12/22/20 07:18 12/22/20 07:18 12/22/20 07:18 12/22/20 08:41 General appearance: Present: no acute distress, well-nourished HEART Score - HEART Score Troponin: Troponin T 0.102 ng/mL (0.00-0.029) H* 12/19/20 12:42 Results - Labs CBC & Chem 7: 12/22/20 04:27 12/22/20 04:27 Labs: Laboratory Last Values WBC 15.0 K/mm3 (4.5-11.0) H 12/22/20 04:27 RBC 4.38 M/mm3 (3.65-5.03) 12/22/20 04:27 Hgb 13.7 gm/dl (10.1-14.3) 12/22/20 04:27 Hct 41.1 % (30.3-42.9) 12/22/20 04:27 MCV 94 fl (79-97) 12/22/20 04:27 MCH 31 pg (28-32) 12/22/20 04:27 MCHC 33 % (30-34) 12/22/20 04:27 RDW 14.0 % (13.2-15.2) 12/22/20 04:27 Plt Count 304 K/mm3 (140-440) 12/22/20 04:27 Lymph % (Auto) 2.4 % (13.4-35.0) L 12/18/20 16:06 [place] % (Auto) 9.0 % (0.0-7.3) H 12/18/20 16:06 Eos % (Auto) 0.1 % (0.0-4.3) 12/18/20 16:06 Baso % (Auto) 1.2 % (0.0-1.8) 12/18/20 16:06 Lymph # (Auto) 0.4 K/mm3 (1.2-5.4) L 12/18/20 16:06 [place] # (Auto) 1.5 K/mm3 (0.0-0.8) H 12/18/20 16:06 Eos # (Auto) 0.0 K/mm3 (0.0-0.4) 12/18/20 16:06 Baso # (Auto) 0.2 K/mm3 (0.0-0.1) H 12/18/20 16:06 Add Manual Diff Complete 12/22/20 04:27 Total Counted 100 12/22/20 04:27 Seg Neutrophils % Finisher Fine [place] Dies 12/22/20 04:27 Seg Neuts % (Manual) 93.0 % (40.0-70.0) H 12/22/20 04:27 Band Neutrophils % 3.0 % 12/22/20 04:27 Lymphocytes % (Manual) 3.0 % (13.4-35.0) L 12/22/20 04:27 Monocytes % (Manual) 1.0 % (0.0-7.3) 12/22/20 04:27 Nucleated RBC % Not Reportable 12/22/20 04:27 Seg Neutrophils # 14.2 K/mm3 (1.8-7.7) H 12/18/20 16:06 Seg Neutrophils # Man 14.0 K/mm3 (1.8-7.7) H 12/22/20 04:27 Band Neutrophils # 0.5 K/mm3 12/22/20 04:27 Lymphocytes # (Manual) 0.5 K/mm3 (1.2-5.4) L 12/22/20 04:27 Abs React Lymphs (Man) 0.0 K/mm3 12/22/20 04:27 Monocytes # (Manual) 0.2 K/mm3 (0.0-0.8) 12/22/20 04:27 Eosinophils # (Manual) 0.0 K/mm3 (0.0-0.4) 12/22/20 04:27 Basophils # (Manual) 0.0 K/mm3 (0.0-0.1) 12/22/20 04:27 Metamyelocytes # 0.0 K/mm3 12/22/20 04:27 Myelocytes # 0.0 K/mm3 12/22/20 04:27 Promyelocytes # 49.8 K/mm3 12/22/20 04:27 Blast Cells # 0.0 K/mm3 12/22/20 04:27 WBC Morphology Not Reportable 12/22/20 04:27 Hypersegmented Neuts Not Reportable 12/22/20 04:27 Hyposegmented Neuts Not Reportable 12/22/20 04:27 Hypogranular Neuts Not Reportable 12/22/20 04:27 Smudge Cells Not Reportable 12/22/20 04:27 Toxic Granulation Not Reportable 12/22/20 04:27 Toxic Vacuolation Not Reportable 12/22/20 04:27 Dohle Bodies Not Reportable 12/22/20 04:27 Pelger-Huet Anomaly Not Reportable 12/22/20 04:27 Mina Rods Not Reportable 12/22/20 04:27 Platelet Estimate Consistent w auto 12/22/20 04:27 Clumped Platelets Not Reportable 12/22/20 04:27 Plt Clumps, EDTA Not Reportable 12/22/20 04:27 Large Platelets Not Reportable 12/22/20 04:27 Giant Platelets Not Reportable 12/22/20 04:27 Platelet Satelliting Not Reportable 12/22/20 04:27 Plt Morphology Comment Not Reportable 12/22/20 04:27 RBC Morphology Normal 12/22/20 04:27 Dimorphic RBCs Not Reportable 12/22/20 04:27 Polychromasia Not Reportable 12/22/20 04:27 Hypochromasia Not Reportable 12/22/20 04:27 Poikilocytosis Not Reportable 12/22/20 04:27 Anisocytosis Not Reportable 12/22/20 04:27 Microcytosis Not Reportable 12/22/20 04:27 Macrocytosis Not Reportable 12/22/20 04:27 Spherocytes Not Reportable 12/22/20 04:27 Pappenheimer Bodies Not Reportable 12/22/20 04:27 Sickle Cells Not Reportable 12/22/20 04:27 Target Cells Not Reportable 12/22/20 04:27 Tear Drop Cells Not Reportable 12/22/20 04:27 Ovalocytes Not Reportable 12/22/20 04:27 Helmet Cells Not Reportable 12/22/20 04:27 [place] Bodies Not Reportable 12/22/20 04:27 [place] Rings Not Reportable 12/22/20 04:27 [place] Cells Not Reportable 12/22/20 04:27 Bite Cells Not Reportable 12/22/20 04:27 Crenated Cell Not Reportable 12/22/20 04:27 Elliptocytes Not Reportable 12/22/20 04:27 Acanthocytes (Spur) Not Reportable 12/22/20 04:27 Rouleaux Not Reportable 12/22/20 04:27 Hemoglobin C Crystals Not Reportable 12/22/20 04:27 Schistocytes Not Reportable 12/22/20 04:27 Malaria parasites Not Reportable 12/22/20 04:27 David Bodies Not Reportable 12/22/20 04:27 Hem Pathologist Commnt No 12/22/20 04:27 Sodium 148 mmol/L (137-145) H 12/22/20 04:27 Potassium 4.0 mmol/L (3.6-5.0) 12/22/20 04:27 Chloride 112.0 mmol/L (98-107) H 12/22/20 04:27 Carbon Dioxide 28 mmol/L (22-30) 12/22/20 04:27 Anion Gap 12 mmol/L 12/22/20 04:27 BUN 19 mg/dL (7-17) H 12/22/20 04:27 Creatinine 0.5 mg/dL (0.6-1.2) L 12/22/20 04:27 Estimated GFR > 60 ml/min 12/22/20 04:27 BUN/Creatinine Ratio 38 % 12/22/20 04:27 Glucose 134 mg/dL (65-100) H 12/22/20 04:27 POC Glucose 127 mg/dL (70-105) H 12/22/20 11:42 Lactic Acid 1.60 mmol/L (0.7-2.0) 12/19/20 05:10 Calcium 8.5 mg/dL (8.4-10.2) 12/22/20 04:27 Magnesium 2.30 mg/dL (1.7-2.3) 12/22/20 04:27 Total Bilirubin 0.40 mg/dL (0.1-1.2) 12/19/20 05:10 AST 27 units/L (5-40) 12/19/20 05:10 ALT 31 units/L (7-56) 12/19/20 05:10 Alkaline Phosphatase 170 units/L (35-129) H 12/19/20 05:10 Troponin T 0.102 ng/mL (0.00-0.029) H* 12/19/20 12:42 NT-Pro-B Natriuret Pep 4882 pg/mL (0-900) H 12/18/20 16:06 Total Protein 4.9 g/dL (6.3-8.2) L 12/19/20 05:10 Albumin 2.2 g/dL (3.9-5) L 12/19/20 05:10 Albumin/Globulin Ratio 0.8 % 12/19/20 05:10 Triglycerides 83 mg/dL (2-149) 12/19/20 12:42 Cholesterol 106 mg/dL (50-199) 12/19/20 12:42 LDL Cholesterol Direct 45 mg/dL (50-130) L 12/19/20 12:42 HDL Cholesterol 50 mg/dL (40-59) 12/19/20 12:42 Cholesterol/HDL Ratio 2.12 % 12/19/20 12:42 TSH 3.170 mlU/mL (0.270-4.200) 12/18/20 19:30 Free T4 1.24 ng/dL (0.76-1.46) 12/18/20 19:30 Coronavirus (PCR) Negative (Negative) 12/21/20 Unknown Microbiology: Microbiology 12/19/20 12:42 Peripheral/Venous Blood Culture - Preliminary NO GROWTH AFTER 48 HOURS 12/19/20 12:23 Peripheral/Venous Blood Culture - Preliminary NO GROWTH AFTER 48 HOURS [place]/IV: Voiding Method External Female Catheter Active Medications - Current Medications Current Medications: Generic Name Dose Route Start Last Admin Trade Name Freq PRN Reason Stop Dose Admin Acetaminophen 650 mg 12/18/20 19:10 12/22/20 10:21 Acetaminophen 325 Mg Tab PO 650 mg Q4H PRN Administration Pain MILD(1-3)/Fever >100.5/LUTHER Albuterol 2.5 mg 12/18/20 19:10 Albuterol 2.5 Mg/3 Ml Nebu IH Q4HRT PRN Shortness Of Breath Alprazolam 0.25 mg 12/20/20 10:00 12/22/20 10:27 Alprazolam 0.25 Mg Tab PO 0.25 mg BID PRN Administration Anxiety Aripiprazole 10 mg 12/20/20 10:00 12/22/20 10:14 Aripiprazole 10 Mg Tab PO 10 mg DAILY RICA Administration Aspirin 81 mg 12/20/20 10:00 12/22/20 10:14 Aspirin Ec 81 Mg Tab PO 81 mg QDAY RICA Administration Atorvastatin Calcium 10 mg 12/20/20 22:00 12/21/20 21:25 Atorvastatin 10 Mg Tab PO 10 mg QHS RICA Administration Cetirizine HCl 10 mg 12/20/20 10:00 12/22/20 10:14 Cetirizine 10 Mg Tab PO 10 mg DAILY RICA Administration Cholecalciferol 5,000 unit 12/20/20 10:00 12/22/20 10:14 Cholecalciferol (Vit D3) 5,000 Unit Tab PO 5,000 unit DAILY RICA Administration Heparin Sodium (Porcine) 5,000 unit 12/18/20 22:00 12/22/20 10:14 Heparin 5,000 Unit/1 Ml Vial SUB-Q 5,000 unit Q12HR RICA Administration Hydromorphone HCl 0.25 mg 12/18/20 19:10 Hydromorphone 1 Mg/1 Ml Inj IV Q4H PRN Pain, Moderate (4-6) Hydromorphone HCl 0.5 mg 12/18/20 19:10 Hydromorphone 1 Mg/1 Ml Inj IV Q12H PRN Pain , Severe (7-10) Ceftriaxone Sodium 2 gm in 100 mls @ 200 mls/hr 12/18/20 21:00 12/21/20 21:23 Rocephin/Ns 2 Gm/100 Ml IV 12/22/20 21:29 200 mls/hr Q24H RICA Administration Protocol Azithromycin 500 mg in 250 mls @ 250 mls/hr 12/18/20 20:00 12/21/20 20:08 Zithromax/Ns IV 12/22/20 20:59 250 mls/hr Q24H RICA Administration Protocol Insulin Human Regular 0 units 12/21/20 11:30 12/22/20 10:10 Insulin Regular, Human 100 Units/1 Ml SUB-Q Not Given ACHS RICA Protocol Memantine 10 mg 12/20/20 10:00 12/22/20 10:14 Memantine 10 Mg Tab PO 10 mg BID RICA Administration Methylprednisolone Sodium Succinate 40 mg 12/19/20 10:00 12/22/20 10:15 Methylprednisolone Sod Succinate 40 Mg/1 Ml Inj IV 40 mg Q12HR RICA Administration Metoprolol Tartrate 50 mg 12/20/20 10:30 12/22/20 10:14 Metoprolol Tartrate 50 Mg Tab PO 50 mg TID RICA Administration Ondansetron HCl 4 mg 12/18/20 19:10 Ondansetron 4 Mg/2 Ml Inj IV Q8H PRN Nausea And Vomiting Oxycodone/Acetaminophen 1 tab 12/18/20 19:10 Oxycodone /Acetaminophen 5-325mg Tab PO Q12H PRN Pain, Moderate (4-6) Sodium Chloride 10 ml 12/18/20 22:00 12/22/20 10:16 Sodium Chloride 0.9% 10 Ml Flush Syringe IV 10 ml BID RICA Administration Sodium Chloride 10 ml 12/18/20 19:10 Sodium Chloride 0.9% 10 Ml Flush Syringe IV PRN PRN LINE FLUSH Nutrition/Malnutrition Assess - Dietary Evaluation Nutrition/Malnutrition Findings: Nutrition Notes Start: 12/19/20 11:30 Freq: Status: Active Protocol: Document 12/21/20 13:54 GUERA (Rec: 12/21/20 13:56 GUERA [email or web address]) Nutrition Notes Initial or Follow up Brief Note Current Diagnosis COPD,Sepsis,Hypertension,Heart Failure,Stroke,Hyperlipidemia Other Pertinent Diagnosis penu, dementia, OA Current Diet pureed Subjective/Other Information Pt very confused today. Unable to contact RN. Per chart, pt ate 100% of breakfast. Nutrition Intervention Follow-Up By: 12/22/20 Additional Comments F/u for intakes
[2020-12-22] MEDS: AZITHROMYCIN/NS 500 MG/250 ML 500 MG/250 ML BAG IV SCH (20:15)
[2020-12-22] MEDS: cefTRIAXone/NS 2 GM/100 ML 2 GM/100 ML BAG IV SCH (21:28)
[2020-12-22] MEDS: SERTRALINE 50 MG TAB PO SCH (21:30)
[2020-12-22] MEDS ORDERED: QUEtiapine 25 MG TAB PO SCH (22:00)
[2020-12-23] MEDS ORDERED: hydrALAZINE 20 MG/1 ML INJ IV PRN (01:31)
--- NOTE | 2020-12-23 07:28 | Progress Note ---
Assessment and Plan Assessment and plan: (1) Atrial fibrillation with rapid ventricular response (now rate controlled) Supportive care, continue medical management. Echo 12/18/2020- EF 35-40%, normal left ventricular wall thickness, right ventricular systolic function normal, moderately dilated right atrium, mild aortic regurgitation, trace mitral and tricuspid regurgitation, no pulmonic regurgitation. Patient had 9 beat run of VTach overnight on 12/21, afib rvr with vent rate of 150-160 on 12/23. Continuous telemetry monitoring dosing of toprol changed to 100 mg po bid. Cardiology following (2) Acute respiratory failure with hypoxia - improving Telemetry, pulse oximetry Possibly due to aspiration pneumonia 12/21/2020 CXR demonstrates bilateral opacities. Official read per radiology [place] thick liquids, aspiration precautions Continue Rocephin IV, azithromycin IV Continue Solu-Medrol until 12/22. (3) Vascular dementia Continue aspirin and atorvastatin. Discontinue Xanax Continue aripiprazole Start Seroquel nightly (4) Cerebral atherosclerosis Supportive care, risk factor reduction, antiplatelet therapy as clinically indicated. (5) Malnutrition Dietary supplementation, increase protein intake when awake and alert only. [place] thick liquids Aspiration precautions (6) Aspiration pneumonitis Supportive care Regimen as above (7) Congestive heart failure Echo findings as above Continue metoprolol Cardiology following (8) Sepsis (resolved) Management as above (9) DVT prophylaxis SCD to bilateral lower extremities while in bed, prophylactic anticoagulation (10) Advance care planning Case management is consulted. Currently working with [place] to set up rehab. Restraints can be discontinued and should be offered 24 hours. Discussed with case management about sitter and need for patient monitoring over the next 24 hours. Patient can be discharged back to facility once arrangements have been made. History Interval history: 12/23/20: Patient still requiring oxygen at 2 L NC. This AM attempted to go to restroom and had episode of Afib RVR with rate in 150-160. Patient was asymptomatic during this episdoe. Given lopressor 5 mg IV x 1 and responded. Metoprolol dosing changed to Toprol 100 mg po bid by cardiology. Will likely require additional night stay. Plan for d/c and patient to potentially go home on home O2. Discussed plan with patient and CM. 12/22/20: Patient resting comfortably in bed. No acute complaints on encounter. Nasal cannula not appropriately positioned however patient is saturating in the mid 90s. Discussed with nurse about discontinuing O2 and checking sat post discontinuation. Hospitalist Physical - Physical exam Narrative exam: Physical Exam: GENERAL APPEARANCE: Well developed, thin, alert and cooperative, and appears to be in no acute distress. Answers yes/no questions. HEAD: normocephalic. EYES: PERRL, EOMI. Vision is grossly intact. EARS: No gross deformities NOSE: No nasal discharge. THROAT: Oral cavity and pharynx normal. No inflammation, swelling, exudate, or lesions. Teeth and gingiva in good general condition. NECK: Neck supple, non-tender without lymphadenopathy, masses or thyromegaly. CARDIAC: Rhythm is irrregualr, tachycardic on initial encounter. There is no peripheral edema, cyanosis or pallor. Extremities are warm and well perfused. Capillary refill is less than 2 seconds. No carotid bruits. LUNGS: Normal lung exam. Poor air movement. No cyanosis or respiratory distress noted. ABDOMEN: Positive bowel sounds. Soft, nondistended, nontender. No guarding or rebound. No masses. MUSKULOSKELETAL: Adequately aligned spine. ROM intact spine and extremities. No joint erythema or tenderness. BACK: Examination of the spine reveals normal gait and posture EXTREMITIES: No significant deformity or joint abnormality. No edema. Peripheral pulses intact. No varicosities. NEUROLOGICAL: CN II-XII intact. Strength and sensation symmetric and intact throughout. Reflexes 2+ throughout. PSYCHIATRIC: The mental examination revealed the patient was oriented to person. Patient appears to be pleasantly demented. - Constitutional Vitals: Temp Pulse Resp BP Pulse Ox 97.2 F L 134 H 24 160/106 91 12/23/20 03:44 12/23/20 03:44 12/23/20 03:44 12/23/20 03:44 12/23/20 03:44 General appearance: Present: no acute distress, well-nourished HEART Score - HEART Score Troponin: Troponin T 0.102 ng/mL (0.00-0.029) H* 12/19/20 12:42 Results - Labs CBC & Chem 7: 12/22/20 04:27 12/22/20 04:27 Labs: Laboratory Last Values WBC 15.0 K/mm3 (4.5-11.0) H 12/22/20 04:27 RBC 4.38 M/mm3 (3.65-5.03) 12/22/20 04:27 Hgb 13.7 gm/dl (10.1-14.3) 12/22/20 04:27 Hct 41.1 % (30.3-42.9) 12/22/20 04:27 MCV 94 fl (79-97) 12/22/20 04:27 MCH 31 pg (28-32) 12/22/20 04:27 MCHC 33 % (30-34) 12/22/20 04:27 RDW 14.0 % (13.2-15.2) 12/22/20 04:27 Plt Count 304 K/mm3 (140-440) 12/22/20 04:27 Lymph % (Auto) 2.4 % (13.4-35.0) L 12/18/20 16:06 Early % (Auto) 9.0 % (0.0-7.3) H 12/18/20 16:06 Eos % (Auto) 0.1 % (0.0-4.3) 12/18/20 16:06 Baso % (Auto) 1.2 % (0.0-1.8) 12/18/20 16:06 Lymph # (Auto) 0.4 K/mm3 (1.2-5.4) L 12/18/20 16:06 Early # (Auto) 1.5 K/mm3 (0.0-0.8) H 12/18/20 16:06 Eos # (Auto) 0.0 K/mm3 (0.0-0.4) 12/18/20 16:06 Baso # (Auto) 0.2 K/mm3 (0.0-0.1) H 12/18/20 16:06 Add Manual Diff Complete 12/22/20 04:27 Total Counted 100 12/22/20 04:27 Seg Neutrophils % [employer] 12/22/20 04:27 Seg Neuts % (Manual) 93.0 % (40.0-70.0) H 12/22/20 04:27 Band Neutrophils % 3.0 % 12/22/20 04:27 Lymphocytes % (Manual) 3.0 % (13.4-35.0) L 12/22/20 04:27 Monocytes % (Manual) 1.0 % (0.0-7.3) 12/22/20 04:27 Nucleated RBC % Not Reportable 12/22/20 04:27 Seg Neutrophils # 14.2 K/mm3 (1.8-7.7) H 12/18/20 16:06 Seg Neutrophils # Man 14.0 K/mm3 (1.8-7.7) H 12/22/20 04:27 Band Neutrophils # 0.5 K/mm3 12/22/20 04:27 Lymphocytes # (Manual) 0.5 K/mm3 (1.2-5.4) L 12/22/20 04:27 Abs React Lymphs (Man) 0.0 K/mm3 12/22/20 04:27 Monocytes # (Manual) 0.2 K/mm3 (0.0-0.8) 12/22/20 04:27 Eosinophils # (Manual) 0.0 K/mm3 (0.0-0.4) 12/22/20 04:27 Basophils # (Manual) 0.0 K/mm3 (0.0-0.1) 12/22/20 04:27 Metamyelocytes # 0.0 K/mm3 12/22/20 04:27 Myelocytes # 0.0 K/mm3 12/22/20 04:27 Promyelocytes # 49.8 K/mm3 12/22/20 04:27 Blast Cells # 0.0 K/mm3 12/22/20 04:27 WBC Morphology Not Reportable 12/22/20 04:27 Hypersegmented Neuts Not Reportable 12/22/20 04:27 Hyposegmented Neuts Not Reportable 12/22/20 04:27 Hypogranular Neuts Not Reportable 12/22/20 04:27 Smudge Cells Not Reportable 12/22/20 04:27 Toxic Granulation Not Reportable 12/22/20 04:27 Toxic Vacuolation Not Reportable 12/22/20 04:27 Dohle Bodies Not Reportable 12/22/20 04:27 Pelger-Huet Anomaly Not Reportable 12/22/20 04:27 Mina Rods Not Reportable 12/22/20 04:27 Platelet Estimate Consistent w auto 12/22/20 04:27 Clumped Platelets Not Reportable 12/22/20 04:27 Plt Clumps, EDTA Not Reportable 12/22/20 04:27 Large Platelets Not Reportable 12/22/20 04:27 Giant Platelets Not Reportable 12/22/20 04:27 Platelet Satelliting Not Reportable 12/22/20 04:27 Plt Morphology Comment Not Reportable 12/22/20 04:27 RBC Morphology Normal 12/22/20 04:27 Dimorphic RBCs Not Reportable 12/22/20 04:27 Polychromasia Not Reportable 12/22/20 04:27 Hypochromasia Not Reportable 12/22/20 04:27 Poikilocytosis Not Reportable 12/22/20 04:27 Anisocytosis Not Reportable 12/22/20 04:27 Microcytosis Not Reportable 12/22/20 04:27 Macrocytosis Not Reportable 12/22/20 04:27 Spherocytes Not Reportable 12/22/20 04:27 Pappenheimer Bodies Not Reportable 12/22/20 04:27 Sickle Cells Not Reportable 12/22/20 04:27 Target Cells Not Reportable 12/22/20 04:27 Tear Drop Cells Not Reportable 12/22/20 04:27 Ovalocytes Not Reportable 12/22/20 04:27 Helmet Cells Not Reportable 12/22/20 04:27 [place] Bodies Not Reportable 12/22/20 04:27 [place] Rings Not Reportable 12/22/20 04:27 [place] Cells Not Reportable 12/22/20 04:27 Bite Cells Not Reportable 12/22/20 04:27 Crenated Cell Not Reportable 12/22/20 04:27 Elliptocytes Not Reportable 12/22/20 04:27 Acanthocytes (Spur) Not Reportable 12/22/20 04:27 Rouleaux Not Reportable 12/22/20 04:27 Hemoglobin C Crystals Not Reportable 12/22/20 04:27 Schistocytes Not Reportable 12/22/20 04:27 Malaria parasites Not Reportable 12/22/20 04:27 David Bodies Not Reportable 12/22/20 04:27 Hem Pathologist Commnt No 12/22/20 04:27 Sodium 148 mmol/L (137-145) H 12/22/20 04:27 Potassium 4.0 mmol/L (3.6-5.0) 12/22/20 04:27 Chloride 112.0 mmol/L (98-107) H 12/22/20 04:27 Carbon Dioxide 28 mmol/L (22-30) 12/22/20 04:27 Anion Gap 12 mmol/L 12/22/20 04:27 BUN 19 mg/dL (7-17) H 12/22/20 04:27 Creatinine 0.5 mg/dL (0.6-1.2) L 12/22/20 04:27 Estimated GFR > 60 ml/min 12/22/20 04:27 BUN/Creatinine Ratio 38 % 12/22/20 04:27 Glucose 134 mg/dL (65-100) H 12/22/20 04:27 POC Glucose 174 mg/dL (70-105) H 12/22/20 20:24 Lactic Acid 1.60 mmol/L (0.7-2.0) 12/19/20 05:10 Calcium 8.5 mg/dL (8.4-10.2) 12/22/20 04:27 Magnesium 2.30 mg/dL (1.7-2.3) 12/22/20 04:27 Total Bilirubin 0.40 mg/dL (0.1-1.2) 12/19/20 05:10 AST 27 units/L (5-40) 12/19/20 05:10 ALT 31 units/L (7-56) 12/19/20 05:10 Alkaline Phosphatase 170 units/L (35-129) H 12/19/20 05:10 Troponin T 0.102 ng/mL (0.00-0.029) H* 12/19/20 12:42 NT-Pro-B Natriuret Pep 4882 pg/mL (0-900) H 12/18/20 16:06 Total Protein 4.9 g/dL (6.3-8.2) L 12/19/20 05:10 Albumin 2.2 g/dL (3.9-5) L 12/19/20 05:10 Albumin/Globulin Ratio 0.8 % 12/19/20 05:10 Triglycerides 83 mg/dL (2-149) 12/19/20 12:42 Cholesterol 106 mg/dL (50-199) 12/19/20 12:42 LDL Cholesterol Direct 45 mg/dL (50-130) L 12/19/20 12:42 HDL Cholesterol 50 mg/dL (40-59) 12/19/20 12:42 Cholesterol/HDL Ratio 2.12 % 12/19/20 12:42 TSH 3.170 mlU/mL (0.270-4.200) 12/18/20 19:30 Free T4 1.24 ng/dL (0.76-1.46) 12/18/20 19:30 Coronavirus (PCR) Negative (Negative) 12/21/20 Unknown Microbiology: Microbiology 12/19/20 12:42 Peripheral/Venous Blood Culture - Preliminary NO GROWTH AFTER 72 HOURS 12/19/20 12:23 Peripheral/Venous Blood Culture - Preliminary NO GROWTH AFTER 72 HOURS [place]/IV: Voiding Method External Female Catheter Active Medications - Current Medications Current Medications: Generic Name Dose Route Start Last Admin Trade Name Freq PRN Reason Stop Dose Admin Acetaminophen 650 mg 12/18/20 19:10 12/22/20 10:21 Acetaminophen 325 Mg Tab PO 650 mg Q4H PRN Administration Pain MILD(1-3)/Fever >100.5/LUTHER Albuterol 2.5 mg 12/18/20 19:10 Albuterol 2.5 Mg/3 Ml Nebu IH Q4HRT PRN Shortness Of Breath Aripiprazole 10 mg 12/20/20 10:00 12/22/20 10:14 Aripiprazole 10 Mg Tab PO 10 mg DAILY RICA Administration Aspirin 81 mg 12/20/20 10:00 12/22/20 10:14 Aspirin Ec 81 Mg Tab PO 81 mg QDAY RICA Administration Atorvastatin Calcium 10 mg 12/20/20 22:00 12/22/20 21:30 Atorvastatin 10 Mg Tab PO 10 mg QHS RICA Administration Cetirizine HCl 10 mg 12/20/20 10:00 12/22/20 10:14 Cetirizine 10 Mg Tab PO 10 mg DAILY RICA Administration Cholecalciferol 5,000 unit 12/20/20 10:00 12/22/20 10:14 Cholecalciferol (Vit D3) 5,000 Unit Tab PO 5,000 unit DAILY RICA Administration Heparin Sodium (Porcine) 5,000 unit 12/18/20 22:00 12/22/20 21:30 Heparin 5,000 Unit/1 Ml Vial SUB-Q 5,000 unit Q12HR RICA Administration Hydralazine HCl 10 mg 12/23/20 01:31 12/23/20 02:18 Hydralazine 20 Mg/1 Ml Inj IV 10 mg Q6H PRN Administration Blood Pressure Hydromorphone HCl 0.25 mg 12/18/20 19:10 Hydromorphone 1 Mg/1 Ml Inj IV Q4H PRN Pain, Moderate (4-6) Hydromorphone HCl 0.5 mg 12/18/20 19:10 Hydromorphone 1 Mg/1 Ml Inj IV Q12H PRN Pain , Severe (7-10) Insulin Human Regular 0 units 12/21/20 11:30 12/22/20 21:31 Insulin Regular, Human 100 Units/1 Ml SUB-Q Not Given ACHS [facility] Protocol Memantine 10 mg 12/20/20 10:00 12/22/20 21:30 Memantine 10 Mg Tab PO 10 mg BID RICA Administration Metoprolol Tartrate 50 mg 12/20/20 10:30 12/22/20 20:15 Metoprolol Tartrate 50 Mg Tab PO 50 mg TID RICA Administration Ondansetron HCl 4 mg 12/18/20 19:10 Ondansetron 4 Mg/2 Ml Inj IV Q8H PRN Nausea And Vomiting Oxycodone/Acetaminophen 1 tab 12/18/20 19:10 Oxycodone /Acetaminophen 5-325mg Tab PO Q12H PRN Pain, Moderate (4-6) Sertraline HCl 50 mg 12/22/20 22:00 12/22/20 21:30 Sertraline 50 Mg Tab PO 50 mg QHS RICA Administration Sodium Chloride 10 ml 12/18/20 22:00 12/22/20 21:31 Sodium Chloride 0.9% 10 Ml Flush Syringe IV 10 ml BID RICA Administration Sodium Chloride 10 ml 12/18/20 19:10 Sodium Chloride 0.9% 10 Ml Flush Syringe IV PRN PRN LINE FLUSH Nutrition/Malnutrition Assess - Dietary Evaluation Nutrition/Malnutrition Findings: Nutrition Notes Start: 12/19/20 11:30 Freq: Status: Active Protocol: Document 12/22/20 15:00 CW (Rec: 12/22/20 15:06 CW [id number]) Nutrition Notes Initial or Follow up Reassessment Current Diagnosis COPD,Sepsis,Hypertension,Heart Failure,Stroke,Hyperlipidemia Other Pertinent Diagnosis pneu, dementia, OA Current Diet pureed Labs/Tests Na 148 BUN 19 Pertinent Medications Solu medrol Height 5 ft 6 in Weight 57.3 kg [place] Body Weight (kg) 59.09 BMI 20.4 Weight change and time frame weight change noted indicating slight weight deviation from UBW Weight Status Underweight Subjective/Other Information Upon entering room today pt reported that she consumed all of her meal. Noted that only about 50% of meals was consumed. I also told pt her current weight and she stated that thats the largest shes been since high school. Supect that pt has always been on the thinner side. Percent of energy/protein needs met: 65%/80% Burn Absent Trauma Absent Difficulty In Swallowing Current % PO Fair (50-74%) Minimum of two criteria No Body Fat Depletion Mild depletion (non-severe) #1 Nutrition Diagnosis Inadequate energy intake Comments: CHANGED Etiology dementia, advanced age As Evidenced by Signs and Symptoms PO intake of 50% of meals consumed, Is patient on ventilator? No Is Patient Ambulatory and/or Out of Bed No REE-([facility]-confined to bed) 1255.080 Kcal/Kg value to use for calculation 29 Approximate Energy Requirements Using 1662 kcal/Kg Calculation Used for Recommendations Kcal/kg Additional Notes Protein: (1-1.2g/kg) 48-58g Fluid: 1ml/kcal or per MD Nutrition Intervention Change Diet Order: Continue current diet as ordered Add Supplement/Snack (indicate name/kcal Ensure Enlive BID /protein ) Goal #1 Meet at least 80% of kcal and protein needs via PO Anticipated Discharge Needs: Pureed diet Follow-Up By: 12/24/20 Additional Comments F/U for intakes and ONS tolerance
[2020-12-23] MEDS ORDERED: METOPROLOL TARTRATE 5 MG/5 ML INJ IV ONE ×3 (09:20→14:15)
[2020-12-23] MEDS: METOPROLOL TARTRATE 50 MG TAB PO SCH (09:30)
--- NOTE | 2020-12-23 09:42 | Event Note ---
Date: 12/23/20 Responded to rapid response this AM at approx 915 AM. Patient was noted to be in afib RVR with ventricular rate to 150's. Patient had stable blood pressure and mentation was at baseline. She was asymptomatic on my encounter. Per RN, patient had taken off oxygen and walked to restroom prior to event. Authorized Lopressor 5 mg IV x 1 dose. Rate improved to 80-90's. Repeat EKG demonstrated improved ventricular rate, however patient is still in afib. NO ST-Twave changes were noted on my interpretation. Discussed care plan to SHIPPING MANAGER team and RN, will re- assess in afternoon.
[2020-12-23] MEDS: HEPARIN 5,000 UNIT/1 ML VIAL SUB-Q SCH ×2 (09:52→22:58)
[2020-12-23] MEDS: ASPIRIN EC 81 MG TAB PO SCH (09:52)
[2020-12-23] MEDS: MEMANTINE 10 MG TAB PO SCH ×2 (09:52→22:56)
[2020-12-23] MEDS: CETIRIZINE 10 MG TAB PO SCH (09:52)
[2020-12-23] MEDS: ARIPiprazole 10 MG TAB PO SCH (09:52)
[2020-12-23] MEDS: CHOLECALCIFEROL (VIT D3) 5,000 UNIT TAB PO SCH (09:53)
[2020-12-23] MEDS: INSULIN REGULAR, HUMAN 100 UNITS/1 ML SUB-Q SCH ×4 (09:54→22:58)
--- NOTE | 2020-12-23 10:37 | Electrocardiograph Report ---
[facility] Test Date: 2020-12-23 Test Time: 09:26:28 Pat Name: DAMIAN BAIRD Department: Room: A456 1 Gender: F Lining Baster: JULIEN : 1935 Requested By: AJ FERRARI Order Number: [id number] Reading MD: Cornel Price Measurements Intervals [place] Rate: 94 P: 70 NM: 153 QRS: 37 QRSD: 98 T: 80 QT: 367 QTc: 460 Interpretive Statements Sinus rhythm Atrial premature complexes Sinus pause Anterior infarct, old No previous ECG available for comparison Electronically Signed On 12-23-2020 10:37:00 EDT by Cornel Price
--- NOTE | 2020-12-23 11:35 | Progress Note ---
Assessment and Plan AFIB w/RVR and MAT * Patient had MAT on monitor with rate into 190s. Switch to Toprol 100mg PO BID for rate control * OAC is held due to fall risk * Echo 12/18/2020- EF 35-40%, normal left ventricular wall thickness, right ventricular systolic function normal, moderately dilated right atrium, mild aortic regurgitation, trace mitral and tricuspid regurgitation, no pulmonic regurgitation. Vascular Dementia * Recommend continuing Aspirin 81 mg PO QD and Atrorvastin 10mg PO QHS * Managed by primary team Patient seen in conjunction with Dr. Price who agrees with this assessment and plan of care. Will see patient as needed - Patient Problems (1) Acute respiratory failure with hypoxia Current Visit: Yes Status: Acute (2) Aspiration pneumonitis Current Visit: Yes Status: Acute (3) Cardiomyopathy Current Visit: Yes Status: Acute Qualifiers: Cardiomyopathy type: dilated Qualified Code(s): I42.0 - Dilated cardiomyopathy (4) DVT prophylaxis Current Visit: Yes Status: Acute (5) Dehydration Current Visit: Yes Status: Acute (6) Malnutrition Current Visit: Yes Status: Acute Qualifiers: Protein-calorie malnutrition severity: severe (7) Non-STEMI (non-ST elevated myocardial infarction) Current Visit: Yes Status: Acute (8) Vascular dementia Current Visit: Yes Status: Acute Qualifiers: Dementia behavioral disturbance: without behavioral disturbance Qualified Code(s): F01.50 - Vascular dementia without behavioral disturbance (9) Atrial fibrillation Current Visit: Yes Status: Chronic Qualifiers: Atrial fibrillation type: persistent (not longstanding) Qualified Code(s): I48.19 - Other persistent atrial fibrillation; I48.1 - Persistent atrial fibrillation Subjective Date of service: 12/23/20 Principal diagnosis: afib and nonstemi Interval history: Patient resting in bed with no complaints. Patient had a code MET for heart rate into 190s Objective Last Vital Signs Temp 97.5 F L 12/23/20 07:49 Pulse 94 H 12/23/20 10:03 Resp 18 12/23/20 07:49 BP 134/83 12/23/20 10:02 Pulse Ox 95 12/23/20 07:49 - Physical Examination General: No Apparent Distress HEENT: Positive: PERRL, Mucus Membranes Moist Neck: Positive: neck supple, trachea midline Cardiac: Positive: Irregularly Regular Lungs: Positive: clear to auscultation, Normal Breath Sounds Neuro: Positive: Grossly Intact Abdomen: Positive: Soft, Active Bowel Sounds. Negative: Tender, Distended Skin: Positive: Clear Incision: Cardiac Cath Site Musculoskeletal: No Pain, Normal Range of Motion Extremities: Present: normal. Absent: edema - Imaging and Cardiology Echo: report reviewed (ef35-40%) - EKG Supraventricular dysrhythmia: multifocal atrial tachyca
[2020-12-23] MEDS ORDERED: METOPROLOL TARTRATE 5 MG/5 ML INJ IV NR (13:20)
[2020-12-23] MEDS ORDERED: METOPROLOL TARTRATE 50 MG TAB PO SCH (22:00)
[2020-12-23] MEDS: METOPROLOL TARTRATE 100 MG TAB PO SCH (22:56)
[2020-12-23] MEDS: SERTRALINE 50 MG TAB PO SCH (22:56)
[2020-12-23] MEDS: INSULIN GLARGINE 100 UNITS/ML SUB-Q SCH (22:57)
[2020-12-24] MEDS ORDERED: dilTIAZem 25 MG/5 ML INJ IV ONE (05:43)
[2020-12-24] MEDS: dilTIAZem/D5W 100 MG/100 ML BAG IV SCH ×2 (05:44→20:28)
[2020-12-24] MEDS: INSULIN REGULAR, HUMAN 100 UNITS/1 ML SUB-Q SCH ×4 (09:05→23:29)
[2020-12-24 11:11] LABS: Blood Urea Nitrogen 18 mg/dL (7-17); Calcium 9.1 mg/dL (8.4-10.2); Hemolysis Index 70
[2020-12-24 11:19] LABS: BUN/Creatinine Ratio 30
--- NOTE | 2020-12-24 11:52 | Progress Note ---
Assessment and Plan AFIB w/RVR and MAT * Patient continues to have MAT on monitor with rate into 160s. Optimize rate control: continue metoprolol 100mg PO BID for rate control. Initiated amiodorone 200mg PO BID * OAC is held due to fall risk * Echo 12/18/2020- EF 35-40%, normal left ventricular wall thickness, right ventricular systolic function normal, moderately dilated right atrium, mild aortic regurgitation, trace mitral and tricuspid regurgitation, no pulmonic regurgitation. * Order EKG Vascular Dementia * Recommend continuing Aspirin 81 mg PO QD and Atrorvastin 10mg PO QHS * Managed by primary team Patient seen in conjunction with Dr. Price who agrees with this assessment and plan of care. Will continue to follow - Patient Problems (1) Acute respiratory failure with hypoxia Current Visit: Yes Status: Acute (2) Aspiration pneumonitis Current Visit: Yes Status: Acute (3) Cardiomyopathy Current Visit: Yes Status: Acute Qualifiers: Cardiomyopathy type: dilated Qualified Code(s): I42.0 - Dilated cardiomyopathy (4) DVT prophylaxis Current Visit: Yes Status: Acute (5) Dehydration Current Visit: Yes Status: Acute (6) Malnutrition Current Visit: Yes Status: Acute Qualifiers: Protein-calorie malnutrition severity: severe (7) Non-STEMI (non-ST elevated myocardial infarction) Current Visit: Yes Status: Acute (8) Vascular dementia Current Visit: Yes Status: Acute Qualifiers: Dementia behavioral disturbance: without behavioral disturbance Qualified Code(s): F01.50 - Vascular dementia without behavioral disturbance (9) Atrial fibrillation Current Visit: Yes Status: Chronic Qualifiers: Atrial fibrillation type: persistent (not longstanding) Qualified Code(s): I48.19 - Other persistent atrial fibrillation; I48.1 - Persistent atrial fibrillation (10) Multifocal atrial tachycardia Current Visit: Yes Status: Acute Subjective Date of service: 12/24/20 Principal diagnosis: afib and nonstemi Interval history: Patient resting in bed with no complaints. Patient continued to have MAT 160s on monitor was given cardizem IV and unresolved Objective Last Vital Signs Temp 97.2 F L 12/24/20 03:30 Pulse 155 H 12/24/20 05:44 Resp 16 12/24/20 03:30 BP 164/72 12/24/20 05:44 Pulse Ox 94 12/24/20 08:48 - Physical Examination General: No Apparent Distress HEENT: Positive: PERRL, Mucus Membranes Moist Neck: Positive: neck supple, trachea midline Cardiac: Positive: irregularly irregular Lungs: Positive: Normal Breath Sounds Neuro: Positive: Grossly Intact Abdomen: Positive: Soft, Active Bowel Sounds. Negative: Tender, Distended Skin: Positive: Clear Incision: Cardiac Cath Site Musculoskeletal: No Pain, Normal Range of Motion Extremities: Present: normal. Absent: edema - Labs and Meds Comprehensive Metabolic Panel 12/24/20 Range/Units 10:29 Sodium 147 H (137-145) mmol/L Potassium 3.9 (3.6-5.0) mmol/L Chloride 105.9 (98-107) mmol/L Carbon Dioxide 27 (22-30) mmol/L BUN 18 H (7-17) mg/dL Creatinine 0.6 (0.6-1.2) mg/dL Glucose 157 H (65-100) mg/dL Calcium 9.1 (8.4-10.2) mg/dL - Imaging and Cardiology Echo: report reviewed (ef35-40%) - Telemetry EKG Rhythm: Atrial Fibrillation - EKG Supraventricular dysrhythmia: multifocal atrial tachyca
--- NOTE | 2020-12-24 14:52 | Fluoroscopy Report ---
MODIFIED BARIUM SWALLOW INDICATION: possible aspiration TECHNIQUE: Swallowing was evaluated in the lateral position under direct fluoroscopy. FINDINGS: The patient was evaluated with thin liquids, nectar, puree and semisolid consistencies.. Silent aspiration was witnessed with thin liquids only. Premature spillage and vallecular residuals w ere noted with nectar, semisolids and puree consistencies. IMPRESSION: Silent aspiration was witnessed with thin liquids. Fluoroscopic time: 1 minutes Number of fluoroscopic images: 2 Signer Name: Luke Gann Jr, MD Signed: 12/24/2020 2:47 PM Workstation Name: [id number]
--- NOTE | 2020-12-24 15:06 | Progress Note ---
Assessment and Plan Assessment and plan: (1) Atrial fibrillation RVT/multifocal atrial tachycardia Supportive care, continue medical management. Echo 12/18/2020- EF 35-40%, normal left ventricular wall thickness, right ventricular systolic function normal, moderately dilated right atrium, mild aortic regurgitation, trace mitral and tricuspid regurgitation, no pulmonic regurgitation. Patient had 9 beat run of VTach overnight on 12/21, afib rvr with vent rate of 150-160 on 12/23. Continuous telemetry monitoring Lopressor 100 mg po bid. Amiodarone 200 mg p.o. bid started for improved heart rate control Cardiology following (2) Acute respiratory failure with hypoxia - improving Telemetry, pulse oximetry Possibly due to aspiration pneumonia 12/21/2020 CXR demonstrates bilateral opacities. Official read per radiology [place] thick liquids, aspiration precautions Continue Rocephin IV, azithromycin IV Continue Solu-Medrol until 12/22. (3) Vascular dementia Continue aspirin and atorvastatin. Discontinue Xanax Continue aripiprazole Start Seroquel nightly (4) Cerebral atherosclerosis Supportive care, risk factor reduction, antiplatelet therapy as clinically indicated. (5) Malnutrition Dietary supplementation, increase protein intake when awake and alert only. [place] thick liquids Aspiration precautions (6) Aspiration pneumonitis Supportive care Regimen as above (7) heart failure with reduced ejection fraction Echo findings as above GDMT: metoprolol and lisinopril Cardiology following (8) Sepsis (resolved) Management as above (9) DVT prophylaxis SCD to bilateral lower extremities while in bed, prophylactic anticoagulation (10) Advance care planning Case management is consulted. Once medically cleared patient can be discharged back to facility. Patient may need home oxygen set up, will attempt to do walking O2 test prior to discharge to determine if patient needs supplemental oxygen oxygen. Coordinating with [place] for set up outpatient. History Interval history: 12/24/2020: Patient has no acute complaints this morning. Overnight heart rate was in 150s to 160s. Diltiazem drip was initiated. Discussed patient case with cardiology this morning, will be starting amiodarone on patient. Discharge pending improvement of heart rate. Blood pressure also noted to be elevated this morning. Added KELSEY inhibitor for improved blood pressure control and for guideline directed medical therapy for CHF. 12/23/20: Patient still requiring oxygen at 2 L NC. This AM attempted to go to restroom and had episode of Afib RVR with rate in 150-160. Patient was asymptomatic during this episdoe. Given lopressor 5 mg IV x 1 and responded. Metoprolol dosing changed to Toprol 100 mg po bid by cardiology. Will likely require additional night stay. Plan for d/c and patient to potentially go home on home O2. Discussed plan with patient and CM. 12/22/20: Patient resting comfortably in bed. No acute complaints on encounter. Nasal cannula not appropriately positioned however patient is saturating in the mid 90s. Discussed with nurse about discontinuing O2 and checking sat post discontinuation. Hospitalist Physical - Physical exam Narrative exam: Physical Exam: GENERAL APPEARANCE: Well developed, thin, alert and cooperative, and appears to be in no acute distress. Answers yes/no questions. HEAD: normocephalic. EYES: PERRL, EOMI. Vision is grossly intact. EARS: No gross deformities NOSE: No nasal discharge. THROAT: Oral cavity and pharynx normal. No inflammation, swelling, exudate, or lesions. Teeth and gingiva in good general condition. NECK: Neck supple, non-tender without lymphadenopathy, masses or thyromegaly. CARDIAC: Rhythm is irrregualr, tachycardic on initial encounter. There is no peripheral edema, cyanosis or pallor. Extremities are warm and well perfused. Capillary refill is less than 2 seconds. No carotid bruits. LUNGS: Normal lung exam. Poor air movement. No cyanosis or respiratory distress noted. ABDOMEN: Positive bowel sounds. Soft, nondistended, nontender. No guarding or rebound. No masses. MUSKULOSKELETAL: Adequately aligned spine. ROM intact spine and extremities. No joint erythema or tenderness. BACK: Examination of the spine reveals normal gait and posture EXTREMITIES: No significant deformity or joint abnormality. No edema. Peripheral pulses intact. No varicosities. NEUROLOGICAL: CN II-XII intact. Strength and sensation symmetric and intact throughout. Reflexes 2+ throughout. PSYCHIATRIC: The mental examination revealed the patient was oriented to person. Patient appears to be pleasantly demented. - Constitutional Vitals: Temp Pulse Resp BP Pulse Ox 97.2 F L 155 H 16 164/72 94 12/24/20 03:30 12/24/20 05:44 12/24/20 03:30 12/24/20 05:44 12/24/20 08:48 General appearance: Present: no acute distress, well-nourished HEART Score - HEART Score Troponin: Troponin T 0.102 ng/mL (0.00-0.029) H* 12/19/20 12:42 Results - Labs CBC & Chem 7: 12/22/20 04:27 12/24/20 10:29 Labs: Laboratory Last Values WBC 15.0 K/mm3 (4.5-11.0) H 12/22/20 04:27 RBC 4.38 M/mm3 (3.65-5.03) 12/22/20 04:27 Hgb 13.7 gm/dl (10.1-14.3) 12/22/20 04:27 Hct 41.1 % (30.3-42.9) 12/22/20 04:27 MCV 94 fl (79-97) 12/22/20 04:27 MCH 31 pg (28-32) 12/22/20 04:27 MCHC 33 % (30-34) 12/22/20 04:27 RDW 14.0 % (13.2-15.2) 12/22/20 04:27 Plt Count 304 K/mm3 (140-440) 12/22/20 04:27 Lymph % (Auto) 2.4 % (13.4-35.0) L 12/18/20 16:06 [place] % (Auto) 9.0 % (0.0-7.3) H 12/18/20 16:06 Eos % (Auto) 0.1 % (0.0-4.3) 12/18/20 16:06 Baso % (Auto) 1.2 % (0.0-1.8) 12/18/20 16:06 Lymph # (Auto) 0.4 K/mm3 (1.2-5.4) L 12/18/20 16:06 [place] # (Auto) 1.5 K/mm3 (0.0-0.8) H 12/18/20 16:06 Eos # (Auto) 0.0 K/mm3 (0.0-0.4) 12/18/20 16:06 Baso # (Auto) 0.2 K/mm3 (0.0-0.1) H 12/18/20 16:06 Add Manual Diff Complete 12/22/20 04:27 Total Counted 100 12/22/20 04:27 Seg Neutrophils % Drawer In Stitch Bonding Machine 12/22/20 04:27 Seg Neuts % (Manual) 93.0 % (40.0-70.0) H 12/22/20 04:27 Band Neutrophils % 3.0 % 12/22/20 04:27 Lymphocytes % (Manual) 3.0 % (13.4-35.0) L 12/22/20 04:27 Monocytes % (Manual) 1.0 % (0.0-7.3) 12/22/20 04:27 Nucleated RBC % Not Reportable 12/22/20 04:27 Seg Neutrophils # 14.2 K/mm3 (1.8-7.7) H 12/18/20 16:06 Seg Neutrophils # Man 14.0 K/mm3 (1.8-7.7) H 12/22/20 04:27 Band Neutrophils # 0.5 K/mm3 12/22/20 04:27 Lymphocytes # (Manual) 0.5 K/mm3 (1.2-5.4) L 12/22/20 04:27 Abs React Lymphs (Man) 0.0 K/mm3 12/22/20 04:27 Monocytes # (Manual) 0.2 K/mm3 (0.0-0.8) 12/22/20 04:27 Eosinophils # (Manual) 0.0 K/mm3 (0.0-0.4) 12/22/20 04:27 Basophils # (Manual) 0.0 K/mm3 (0.0-0.1) 12/22/20 04:27 Metamyelocytes # 0.0 K/mm3 12/22/20 04:27 Myelocytes # 0.0 K/mm3 12/22/20 04:27 Promyelocytes # 49.8 K/mm3 12/22/20 04:27 Blast Cells # 0.0 K/mm3 12/22/20 04:27 WBC Morphology Not Reportable 12/22/20 04:27 Hypersegmented Neuts Not Reportable 12/22/20 04:27 Hyposegmented Neuts Not Reportable 12/22/20 04:27 Hypogranular Neuts Not Reportable 12/22/20 04:27 Smudge Cells Not Reportable 12/22/20 04:27 Toxic Granulation Not Reportable 12/22/20 04:27 Toxic Vacuolation Not Reportable 12/22/20 04:27 Dohle Bodies Not Reportable 12/22/20 04:27 Pelger-Huet Anomaly Not Reportable 12/22/20 04:27 Mina Rods Not Reportable 12/22/20 04:27 Platelet Estimate Consistent w auto 12/22/20 04:27 Clumped Platelets Not Reportable 12/22/20 04:27 Plt Clumps, EDTA Not Reportable 12/22/20 04:27 Large Platelets Not Reportable 12/22/20 04:27 Giant Platelets Not Reportable 12/22/20 04:27 Platelet Satelliting Not Reportable 12/22/20 04:27 Plt Morphology Comment Not Reportable 12/22/20 04:27 RBC Morphology Normal 12/22/20 04:27 Dimorphic RBCs Not Reportable 12/22/20 04:27 Polychromasia Not Reportable 12/22/20 04:27 Hypochromasia Not Reportable 12/22/20 04:27 Poikilocytosis Not Reportable 12/22/20 04:27 Anisocytosis Not Reportable 12/22/20 04:27 Microcytosis Not Reportable 12/22/20 04:27 Macrocytosis Not Reportable 12/22/20 04:27 Spherocytes Not Reportable 12/22/20 04:27 Pappenheimer Bodies Not Reportable 12/22/20 04:27 Sickle Cells Not Reportable 12/22/20 04:27 Target Cells Not Reportable 12/22/20 04:27 Tear Drop Cells Not Reportable 12/22/20 04:27 Ovalocytes Not Reportable 12/22/20 04:27 Helmet Cells Not Reportable 12/22/20 04:27 [place] Bodies Not Reportable 12/22/20 04:27 [place] Rings Not Reportable 12/22/20 04:27 Fred Cells Not Reportable 12/22/20 04:27 Bite Cells Not Reportable 12/22/20 04:27 Crenated Cell Not Reportable 12/22/20 04:27 Elliptocytes Not Reportable 12/22/20 04:27 Acanthocytes (Spur) Not Reportable 12/22/20 04:27 Rouleaux Not Reportable 12/22/20 04:27 Hemoglobin C Crystals Not Reportable 12/22/20 04:27 Schistocytes Not Reportable 12/22/20 04:27 Malaria parasites Not Reportable 12/22/20 04:27 David Bodies Not Reportable 12/22/20 04:27 Hem Pathologist Commnt No 12/22/20 04:27 Sodium 147 mmol/L (137-145) H 12/24/20 10:29 Potassium 3.9 mmol/L (3.6-5.0) 12/24/20 10:29 Chloride 105.9 mmol/L (98-107) 12/24/20 10:29 Carbon Dioxide 27 mmol/L (22-30) 12/24/20 10:29 Anion Gap 18 mmol/L 12/24/20 10:29 BUN 18 mg/dL (7-17) H 12/24/20 10:29 Creatinine 0.6 mg/dL (0.6-1.2) 12/24/20 10:29 Estimated GFR > 60 ml/min 12/24/20 10:29 BUN/Creatinine Ratio 30 % 12/24/20 10:29 Glucose 157 mg/dL (65-100) H 12/24/20 10:29 POC Glucose 138 mg/dL (70-105) H 12/24/20 12:09 Lactic Acid 1.60 mmol/L (0.7-2.0) 12/19/20 05:10 Calcium 9.1 mg/dL (8.4-10.2) 12/24/20 10:29 Magnesium 2.30 mg/dL (1.7-2.3) 12/22/20 04:27 Total Bilirubin 0.40 mg/dL (0.1-1.2) 12/19/20 05:10 AST 27 units/L (5-40) 12/19/20 05:10 ALT 31 units/L (7-56) 12/19/20 05:10 Alkaline Phosphatase 170 units/L (35-129) H 12/19/20 05:10 Troponin T 0.102 ng/mL (0.00-0.029) H* 12/19/20 12:42 NT-Pro-B Natriuret Pep 4882 pg/mL (0-900) H 12/18/20 16:06 Total Protein 4.9 g/dL (6.3-8.2) L 12/19/20 05:10 Albumin 2.2 g/dL (3.9-5) L 12/19/20 05:10 Albumin/Globulin Ratio 0.8 % 12/19/20 05:10 Triglycerides 83 mg/dL (2-149) 12/19/20 12:42 Cholesterol 106 mg/dL (50-199) 12/19/20 12:42 LDL Cholesterol Direct 45 mg/dL (50-130) L 12/19/20 12:42 HDL Cholesterol 50 mg/dL (40-59) 12/19/20 12:42 Cholesterol/HDL Ratio 2.12 % 12/19/20 12:42 TSH 3.170 mlU/mL (0.270-4.200) 12/18/20 19:30 Free T4 1.24 ng/dL (0.76-1.46) 12/18/20 19:30 Coronavirus (PCR) Negative (Negative) 12/21/20 Unknown Microbiology: Microbiology 12/19/20 12:42 Peripheral/Venous Blood Culture - Final NO GROWTH AFTER 5 DAYS 12/19/20 12:23 Peripheral/Venous Blood Culture - Final NO GROWTH AFTER 5 DAYS [place]/IV: Voiding Method External Female Catheter Active Medications - Current Medications Current Medications: Generic Name Dose Route Start Last Admin Trade Name Freq PRN Reason Stop Dose Admin Acetaminophen 650 mg 12/18/20 19:10 12/22/20 10:21 Acetaminophen 325 Mg Tab PO 650 mg Q4H PRN Administration Pain MILD(1-3)/Fever >100.5/LUTHER Albuterol 2.5 mg 12/18/20 19:10 12/23/20 14:23 Albuterol 2.5 Mg/3 Ml Nebu IH 2.5 mg Q4HRT PRN Administration Shortness Of Breath Amiodarone HCl 200 mg 12/24/20 11:00 Amiodarone 200 Mg Tab PO BID RICA Aripiprazole 10 mg 12/20/20 10:00 12/23/20 09:52 Aripiprazole 10 Mg Tab PO 10 mg DAILY RICA Administration Aspirin 81 mg 12/20/20 10:00 12/23/20 09:52 Aspirin Ec 81 Mg Tab PO 81 mg QDAY RICA Administration Atorvastatin Calcium 10 mg 12/20/20 22:00 12/23/20 22:56 Atorvastatin 10 Mg Tab PO 10 mg QHS RICA Administration Cetirizine HCl 10 mg 12/20/20 10:00 12/23/20 09:52 Cetirizine 10 Mg Tab PO 10 mg DAILY RICA Administration Cholecalciferol 5,000 unit 12/20/20 10:00 12/23/20 09:53 Cholecalciferol (Vit D3) 5,000 Unit Tab PO 5,000 unit DAILY RICA Administration Heparin Sodium (Porcine) 5,000 unit 12/18/20 22:00 12/23/20 22:58 Heparin 5,000 Unit/1 Ml Vial SUB-Q 5,000 unit Q12HR RICA Administration Hydralazine HCl 10 mg 12/23/20 01:31 12/23/20 02:18 Hydralazine 20 Mg/1 Ml Inj IV 10 mg Q6H PRN Administration Blood Pressure Hydromorphone HCl 0.25 mg 12/18/20 19:10 12/23/20 22:57 Hydromorphone 1 Mg/1 Ml Inj IV 0.25 mg Q4H PRN Administration Pain, Moderate (4-6) Hydromorphone HCl 0.5 mg 12/18/20 19:10 Hydromorphone 1 Mg/1 Ml Inj IV Q12H PRN Pain , Severe (7-10) Diltiazem HCl 100 mg in 100 mls @ 5 mls/hr 12/24/20 06:00 12/24/20 05:44 Cardizem/D5w 100mg/100ml IV 5 mg/hr DIRECT RICA 5 mls/hr Administration Protocol 5 MG/HR Insulin Glargine 5 units 12/23/20 22:00 12/23/20 22:57 Insulin Glargine 100 Units/Ml SUB-Q 5 units QHS [facility] Administration Insulin Human Regular 0 units 12/21/20 11:30 12/24/20 09:05 Insulin Regular, Human 100 Units/1 Ml SUB-Q Not Given ACHS [facility] Protocol Lisinopril 20 mg 12/24/20 10:00 Lisinopril 20 Mg Tab PO QDAY RICA Memantine 10 mg 12/20/20 10:00 12/23/20 22:56 Memantine 10 Mg Tab PO 10 mg BID RICA Administration Metoprolol Tartrate 100 mg 12/23/20 22:00 12/23/20 22:56 Metoprolol Tartrate 100 Mg Tab PO 100 mg BID RICA Administration Ondansetron HCl 4 mg 12/18/20 19:10 Ondansetron 4 Mg/2 Ml Inj IV Q8H PRN Nausea And Vomiting Oxycodone/Acetaminophen 1 tab 12/18/20 19:10 Oxycodone /Acetaminophen 5-325mg Tab PO Q12H PRN Pain, Moderate (4-6) Quetiapine Fumarate 50 mg 12/24/20 22:00 Quetiapine 25 Mg Tab PO QHS RICA Sertraline HCl 50 mg 12/22/20 22:00 12/23/20 22:56 Sertraline 50 Mg Tab PO 50 mg QHS RICA Administration Sodium Chloride 10 ml 12/18/20 22:00 12/23/20 23:00 Sodium Chloride 0.9% 10 Ml Flush Syringe IV 10 ml BID RICA Administration Sodium Chloride 10 ml 12/18/20 19:10 Sodium Chloride 0.9% 10 Ml Flush Syringe IV PRN PRN LINE FLUSH Nutrition/Malnutrition Assess - Dietary Evaluation Nutrition/Malnutrition Findings: Nutrition Notes Start: 12/19/20 11:30 Freq: Status: Active Protocol: Document 12/24/20 12:50 (Rec: 12/24/20 12:53 [id number]) Nutrition Notes Initial or Follow up Reassessment Current Diagnosis COPD,Sepsis,Hypertension,Heart Failure,Stroke,Hyperlipidemia Other Pertinent Diagnosis pneu, dementia, OA Current Diet pureed Labs/Tests Na 147 Pertinent Medications Reviewed Height 5 ft 6 in Weight 54.8 kg [place] Body Weight (kg) 59.09 BMI 19.5 Weight Status Underweight Subjective/Other Information FU for intakes. RN reports pt eating 25% of meals. Will try Nepro ONS as it is the only nectar like liquid ONS carried . Percent of energy/protein needs met: 27%/40% Burn Absent Trauma Absent Difficulty In Swallowing Current % PO Poor (25-49%) Minimum of two criteria No Body Fat Depletion Mild depletion (non-severe) #1 Nutrition Diagnosis Inadequate energy intake As Evidenced by Signs and Symptoms pt eating 25% of meals Diagnosis Progress(for reassessment Worsened documentation) Is patient on ventilator? No Is Patient Ambulatory and/or Out of Bed No [facility] 1225.104 Kcal/Kg value to use for calculation 29 Approximate Energy Requirements Using 1589 kcal/Kg Calculation Used for Recommendations Kcal/kg Additional Notes Protein: (1-1.2g/kg) 48-58g Fluid: 1ml/kcal or per MD Nutrition Intervention Change Diet Order: Continue current diet as ordered Add Supplement/Snack (indicate name/kcal Nepro daily /protein ) Provides kCal: 425 Provides Protein (gm) 19 Goal #1 Meet at least 80% of kcal and protein needs via PO Anticipated Discharge Needs: Pureed diet Follow-Up By: 12/28/20 Additional Comments F/U for intakes and ONS tolerance
[2020-12-24] MEDS: ARIPiprazole 10 MG TAB PO SCH (15:47)
[2020-12-24] MEDS: CETIRIZINE 10 MG TAB PO SCH (15:47)
[2020-12-24] MEDS: HEPARIN 5,000 UNIT/1 ML VIAL SUB-Q SCH ×2 (15:48→23:28)
[2020-12-24] MEDS: ASPIRIN EC 81 MG TAB PO SCH (15:48)
[2020-12-24] MEDS: METOPROLOL TARTRATE 100 MG TAB PO SCH ×2 (15:54→23:27)
[2020-12-24] MEDS: MEMANTINE 10 MG TAB PO SCH ×2 (15:54→23:27)
[2020-12-24] MEDS: CHOLECALCIFEROL (VIT D3) 5,000 UNIT TAB PO SCH (15:55)
[2020-12-24] MEDS: LISINOPRIL 20 MG TAB PO SCH (15:55)
[2020-12-24] MEDS: AMIODARONE 200 MG TAB PO SCH ×2 (18:56→23:26)
[2020-12-24] MEDS: SERTRALINE 50 MG TAB PO SCH (23:27)
[2020-12-24] MEDS: QUEtiapine 25 MG TAB PO SCH (23:27)
[2020-12-24] MEDS: INSULIN GLARGINE 100 UNITS/ML SUB-Q SCH (23:28)
[2020-12-25] MEDS ORDERED: SODIUM CHLORIDE 0.9% 1000 ML 1,000 ML IV ONE (02:36)
[2020-12-25 05:26] LABS: Alanine Aminotransferase 13 units/L (7-56); Albumin 2.3 g/dL (3.9-5); Blood Urea Nitrogen 19 mg/dL (7-17); Calcium 8.1 mg/dL (8.4-10.2); Hemolysis Index 43
[2020-12-25 05:39] LABS: BUN/Creatinine Ratio 27
[2020-12-25] MEDS: INSULIN REGULAR, HUMAN 100 UNITS/1 ML SUB-Q SCH ×4 (07:57→22:55)
[2020-12-25] MEDS: ASPIRIN EC 81 MG TAB PO SCH (10:24)
[2020-12-25] MEDS: CHOLECALCIFEROL (VIT D3) 5,000 UNIT TAB PO SCH (10:24)
[2020-12-25] MEDS: ARIPiprazole 10 MG TAB PO SCH (10:24)
[2020-12-25] MEDS: AMIODARONE 200 MG TAB PO SCH (10:25)
[2020-12-25] MEDS: MEMANTINE 10 MG TAB PO SCH ×2 (10:25→22:53)
[2020-12-25] MEDS: CETIRIZINE 10 MG TAB PO SCH (10:25)
[2020-12-25] MEDS: METOPROLOL TARTRATE 100 MG TAB PO SCH ×2 (10:26→22:53)
[2020-12-25] MEDS: LISINOPRIL 20 MG TAB PO SCH (10:26)
[2020-12-25] MEDS: HEPARIN 5,000 UNIT/1 ML VIAL SUB-Q SCH ×2 (10:27→22:53)
--- NOTE | 2020-12-25 11:33 | Discharge Summary ---
Providers - Providers Date of Admission: 12/18/20 19:11 Attending physician: AJ FERRARI MD 12/18/20 19:16 Consult to Cardiology [CONS] Routine Consulting Provider: EMANUEL TAM Reason For Exam: chf 12/18/20 20:37 Consult to Case Management [CONS] Routine Services Needed at Discharge: Other Notified:: in am Additional Physician Instructions: Discharge planning/assisted facility placement as per family request 12/19/20 09:33 Physical Therapy Evaluation and Treat [CONS] Routine Comment: Reason For Exam: Deconditioning 12/19/20 09:34 Speech Therapy Evaluation and Treat [CONS] Routine Reason For Exam: swallowing eval 12/19/20 10:50 Speech Therapy Evaluation and Treat [CONS] Stat Reason For Exam: swallow evaluation 12/19/20 16:08 Occupational Therapy Evaluate and Treat [CONS] Urgent Comment: Reason For Exam: Debility Primary care physician: SAVAGE HAN MD Hospitalization Condition: Stable Disposition: DC-30 STILL A PATIENT Exam - Constitutional Vitals: Temp Pulse Resp BP Pulse Ox 97.6 F 63 14 100/43 98 12/25/20 10:21 12/25/20 10:26 12/25/20 10:19 12/25/20 10:26 12/25/20 10:19 Plan Follow up with: SAVAGE HAN MD [Primary Care Provider] - 3-5 Days
--- NOTE | 2020-12-25 11:44 | Progress Note ---
Assessment and Plan AFIB w/RVR and MAT * Review of telemetry shows patient has converted to normal sinus rhythm in 70s this AM. Optimize rate control: continue metoprolol 100mg PO BID for rate control. Reduce amiodorone 200mg PO QD * No OAC recommended due to increased fall risk * Echo 12/18/2020- EF 35-40%, normal left ventricular wall thickness, right ventricular systolic function normal, moderately dilated right atrium, mild aortic regurgitation, trace mitral and tricuspid regurgitation, no pulmonic regurgitation. Vascular Dementia * Recommend continuing Aspirin 81 mg PO QD and Atorvastin 10mg PO QHS * Managed by primary team From a cardiac standpoint patient is stable and ok for to discharge Patient seen in conjunction with Dr. Price who agrees with this assessment and plan of care. Patient should follow up with their [facility] provider in 1-2 weeks following discharge Will see as needed - Patient Problems (1) Acute respiratory failure with hypoxia Current Visit: Yes Status: Acute (2) Aspiration pneumonitis Current Visit: Yes Status: Acute (3) Cardiomyopathy Current Visit: Yes Status: Acute Qualifiers: Cardiomyopathy type: dilated Qualified Code(s): I42.0 - Dilated cardiomyopathy (4) DVT prophylaxis Current Visit: Yes Status: Acute (5) Dehydration Current Visit: Yes Status: Acute (6) Malnutrition Current Visit: Yes Status: Acute Qualifiers: Protein-calorie malnutrition severity: severe (7) Non-STEMI (non-ST elevated myocardial infarction) Current Visit: Yes Status: Acute (8) Vascular dementia Current Visit: Yes Status: Acute Qualifiers: Dementia behavioral disturbance: without behavioral disturbance Qualified Code(s): F01.50 - Vascular dementia without behavioral disturbance (9) Atrial fibrillation Current Visit: Yes Status: Chronic Qualifiers: Atrial fibrillation type: persistent (not longstanding) Qualified Code(s): I48.19 - Other persistent atrial fibrillation; I48.1 - Persistent atrial fibrillation (10) Multifocal atrial tachycardia Current Visit: Yes Status: Acute Subjective Date of service: 12/25/20 Principal diagnosis: afib and nonstemi Interval history: Patient resting in bed with no complaints. Patient is normal sinus rhythm 70s on monitor with no events on monitor Objective Last Vital Signs Temp 97.6 F 12/25/20 10:21 Pulse 63 12/25/20 10:26 Resp 14 12/25/20 10:19 BP 100/43 12/25/20 10:26 Pulse Ox 98 12/25/20 10:19 - Physical Examination General: No Apparent Distress HEENT: Positive: PERRL, Mucus Membranes Moist Neck: Positive: neck supple, trachea midline Cardiac: Positive: Reg Rate and Rhythm Lungs: Positive: Normal Breath Sounds Neuro: Positive: Grossly Intact Abdomen: Positive: Soft, Active Bowel Sounds. Negative: Tender, Distended Skin: Positive: Clear Incision: Cardiac Cath Site Musculoskeletal: No Pain, Normal Range of Motion Extremities: Present: normal. Absent: edema - Labs and Meds Cardiac Enzymes 12/25/20 Range/Units 04:09 AST 14 (5-40) units/L Comprehensive Metabolic Panel 12/25/20 Range/Units 04:09 Sodium 147 H (137-145) mmol/L Potassium 4.0 (3.6-5.0) mmol/L Chloride 110.6 H (98-107) mmol/L Carbon Dioxide 28 (22-30) mmol/L BUN 19 H (7-17) mg/dL Creatinine 0.7 (0.6-1.2) mg/dL Glucose 84 (65-100) mg/dL Calcium 8.1 L (8.4-10.2) mg/dL AST 14 (5-40) units/L ALT 13 (7-56) units/L Alkaline Phosphatase 94 (35-129) units/L Total Protein 4.2 L (6.3-8.2) g/dL Albumin 2.3 L (3.9-5) g/dL - Imaging and Cardiology Echo: report reviewed (ef35-40%) - Telemetry EKG Rhythm: Sinus Rhythm - EKG Sinus rhythms and dysrhythmias: sinus rhythm
--- NOTE | 2020-12-25 17:05 | Progress Note ---
Assessment and Plan Assessment and plan: (1) Atrial fibrillation RVT/multifocal atrial tachycardia Supportive care, continue medical management. Echo 12/18/2020- EF 35-40%, normal left ventricular wall thickness, right ventricular systolic function normal, moderately dilated right atrium, mild aortic regurgitation, trace mitral and tricuspid regurgitation, no pulmonic regurgitation. Patient had 9 beat run of VTach overnight on 12/21, afib rvr with vent rate of 150-160 on 12/23. Continuous telemetry monitoring Lopressor 100 mg po bid. Amiodarone 200 mg p.o. bid started for improved heart rate control Cardiology following (2) Acute respiratory failure with hypoxia - improving Telemetry, pulse oximetry Possibly due to aspiration pneumonia 12/21/2020 CXR demonstrates bilateral opacities. Official read per radiology [place] thick liquids, aspiration precautions Continue Rocephin IV, azithromycin IV Continue Solu-Medrol until 12/22. Needs walking O2 test to determine qualification for home oxygen (3) Vascular dementia Continue aspirin and atorvastatin. Discontinue Xanax Continue aripiprazole Start Seroquel nightly (4) Cerebral atherosclerosis Supportive care, risk factor reduction, antiplatelet therapy as clinically yvonne cated. (5) Malnutrition Dietary supplementation, increase protein intake when awake and alert only. [place] thick liquids Aspiration precautions (6) Aspiration pneumonitis Supportive care Regimen as above (7) heart failure with reduced ejection fraction Echo findings as above GDMT: metoprolol and lisinopril Cardiology following (8) Sepsis (resolved) Management as above (9) DVT prophylaxis SCD to bilateral lower extremities while in bed, prophylactic anticoagulation (10) Advance care planning Case management is consulted. Once medically cleared patient can be discharged back to facility. Patient may need home oxygen set up, will attempt to do walking O2 test prior to discharge to determine if patient needs supplemental oxygen oxygen. Patient insurance authorization for SNF declined. currently working to contact insurance company to resolve issue. Case management assisting. History Interval history: 12/25/2020: Patient has no acute complaints this morning. Heart rate more effe ctively controlled with amiodarone. Currently working on placement to SNF. Insurance declined authorization. currently working with insurance company in conjunction with case management to find a solution for . We will attempt a walking O2 test today to see if patient qualifies for home oxygen. Potential discharge today or tomorrow 12/24/2020: Patient has no acute complaints this morning. Overnight heart rate was in 150s to 160s. Diltiazem drip was initiated. Discussed patient case with cardiology this morning, will be starting amiodarone on patient. Discharge pending improvement of heart rate. Blood pressure also noted to be elevated this morning. Added KELSEY inhibitor for improved blood pressure control and for guideline directed medical therapy for CHF. 12/23/20: Patient still requiring oxygen at 2 L NC. This AM attempted to go to restroom and had episode of Afib RVR with rate in 150-160. Patient was asymptomatic during this episdoe. Given lopressor 5 mg IV x 1 and responded. Metoprolol dosing changed to Toprol 100 mg po bid by cardiology. Will likely require additional night stay. Plan for d/c and patient to potentially go home on home O2. Discussed plan with patient and CM. 12/22/20: Patient resting comfortably in bed. No acute complaints on encounter. Nasal cannula not appropriately positioned however patient is saturating in the mid 90s. Discussed with nurse about discontinuing O2 and checking sat post discontinuation. Hospitalist Physical - Physical exam Narrative exam: Physical Exam: GENERAL APPEARANCE: Well developed, thin, alert and cooperative, and appears to be in no acute distress. Answers yes/no questions. HEAD: normocephalic. EYES: PERRL, EOMI. Vision is grossly intact. EARS: No gross deformities NOSE: No nasal discharge. THROAT: Oral cavity and pharynx normal. No inflammation, swelling, exudate, or lesions. Teeth and gingiva in good general condition. NECK: Neck supple, non-tender without lymphadenopathy, masses or thyromegaly. CARDIAC: Rhythm is irrregualr, tachycardic on initial encounter. There is no peripheral edema, cyanosis or pallor. Extremities are warm and well perfused. Capillary refill is less than 2 seconds. No carotid bruits. LUNGS: Normal lung exam. Poor air movement. No cyanosis or respiratory distress noted. ABDOMEN: Positive bowel sounds. Soft, nondistended, nontender. No guarding or rebound. No masses. MUSKULOSKELETAL: Adequately aligned spine. ROM intact spine and extremities. No joint erythema or tenderness. BACK: Examination of the spine reveals normal gait and posture EXTREMITIES: No significant deformity or joint abnormality. No edema. Peripheral pulses intact. No varicosities. NEUROLOGICAL: CN II-XII intact. Strength and sensation symmetric and intact throughout. Reflexes 2+ throughout. PSYCHIATRIC: The mental examination revealed the patient was oriented to person. Patient appears to be pleasantly demented. - Constitutional Vitals: Temp Pulse Resp BP Pulse Ox 98.4 F 69 16 134/68 99 12/25/20 16:02 12/25/20 16:02 12/25/20 16:02 12/25/20 16:02 12/25/20 16:02 General appearance: Present: no acute distress, well-nourished HEART Score - HEART Score Troponin: Troponin T 0.102 ng/mL (0.00-0.029) H* 12/19/20 12:42 Results - Labs CBC & Chem 7: 12/22/20 04:27 12/25/20 04:09 Labs: Laboratory Last Values WBC 15.0 K/mm3 (4.5-11.0) H 12/22/20 04:27 RBC 4.38 M/mm3 (3.65-5.03) 12/22/20 04:27 Hgb 13.7 gm/dl (10.1-14.3) 12/22/20 04:27 Hct 41.1 % (30.3-42.9) 12/22/20 04:27 MCV 94 fl (79-97) 12/22/20 04:27 MCH 31 pg (28-32) 12/22/20 04:27 MCHC 33 % (30-34) 12/22/20 04:27 RDW 14.0 % (13.2-15.2) 12/22/20 04:27 Plt Count 304 K/mm3 (140-440) 12/22/20 04:27 Lymph % (Auto) 2.4 % (13.4-35.0) L 12/18/20 16:06 [place] % (Auto) 9.0 % (0.0-7.3) H 12/18/20 16:06 Eos % (Auto) 0.1 % (0.0-4.3) 12/18/20 16:06 Baso % (Auto) 1.2 % (0.0-1.8) 12/18/20 16:06 Lymph # (Auto) 0.4 K/mm3 (1.2-5.4) L 12/18/20 16:06 [place] # (Auto) 1.5 K/mm3 (0.0-0.8) H 12/18/20 16:06 Eos # (Auto) 0.0 K/mm3 (0.0-0.4) 12/18/20 16:06 Baso # (Auto) 0.2 K/mm3 (0.0-0.1) H 12/18/20 16:06 Add Manual Diff Complete 12/22/20 04:27 Total Counted 100 12/22/20 04:27 Seg Neutrophils % Die Sinking Machine Operator 12/22/20 04:27 Seg Neuts % (Manual) 93.0 % (40.0-70.0) H 12/22/20 04:27 Band Neutrophils % 3.0 % 12/22/20 04:27 Lymphocytes % (Manual) 3.0 % (13.4-35.0) L 12/22/20 04:27 Monocytes % (Manual) 1.0 % (0.0-7.3) 12/22/20 04:27 Nucleated RBC % Not Reportable 12/22/20 04:27 Seg Neutrophils # 14.2 K/mm3 (1.8-7.7) H 12/18/20 16:06 Seg Neutrophils # Man 14.0 K/mm3 (1.8-7.7) H 12/22/20 04:27 Band Neutrophils # 0.5 K/mm3 12/22/20 04:27 Lymphocytes # (Manual) 0.5 K/mm3 (1.2-5.4) L 12/22/20 04:27 Abs React Lymphs (Man) 0.0 K/mm3 12/22/20 04:27 Monocytes # (Manual) 0.2 K/mm3 (0.0-0.8) 12/22/20 04:27 Eosinophils # (Manual) 0.0 K/mm3 (0.0-0.4) 12/22/20 04:27 Basophils # (Manual) 0.0 K/mm3 (0.0-0.1) 12/22/20 04:27 Metamyelocytes # 0.0 K/mm3 12/22/20 04:27 Myelocytes # 0.0 K/mm3 12/22/20 04:27 Promyelocytes # 49.8 K/mm3 12/22/20 04:27 Blast Cells # 0.0 K/mm3 12/22/20 04:27 WBC Morphology Not Reportable 12/22/20 04:27 Hypersegmented Neuts Not Reportable 12/22/20 04:27 Hyposegmented Neuts Not Reportable 12/22/20 04:27 Hypogranular Neuts Not Reportable 12/22/20 04:27 Smudge Cells Not Reportable 12/22/20 04:27 Toxic Granulation Not Reportable 12/22/20 04:27 Toxic Vacuolation Not Reportable 12/22/20 04:27 Dohle Bodies Not Reportable 12/22/20 04:27 Pelger-Huet Anomaly Not Reportable 12/22/20 04:27 Mina Rods Not Reportable 12/22/20 04:27 Platelet Estimate Consistent w auto 12/22/20 04:27 Clumped Platelets Not Reportable 12/22/20 04:27 Plt Clumps, EDTA Not Reportable 12/22/20 04:27 Large Platelets Not Reportable 12/22/20 04:27 Giant Platelets Not Reportable 12/22/20 04:27 Platelet Satelliting Not Reportable 12/22/20 04:27 Plt Morphology Comment Not Reportable 12/22/20 04:27 RBC Morphology Normal 12/22/20 04:27 Dimorphic RBCs Not Reportable 12/22/20 04:27 Polychromasia Not Reportable 12/22/20 04:27 Hypochromasia Not Reportable 12/22/20 04:27 Poikilocytosis Not Reportable 12/22/20 04:27 Anisocytosis Not Reportable 12/22/20 04:27 Microcytosis Not Reportable 12/22/20 04:27 Macrocytosis Not Reportable 12/22/20 04:27 Spherocytes Not Reportable 12/22/20 04:27 Pappenheimer Bodies Not Reportable 12/22/20 04:27 Sickle Cells Not Reportable 12/22/20 04:27 Target Cells Not Reportable 12/22/20 04:27 Tear Drop Cells Not Reportable 12/22/20 04:27 Ovalocytes Not Reportable 12/22/20 04:27 Helmet Cells Not Reportable 12/22/20 04:27 [place] Bodies Not Reportable 12/22/20 04:27 [place] Rings Not Reportable 12/22/20 04:27 [place] Cells Not Reportable 12/22/20 04:27 Bite Cells Not Reportable 12/22/20 04:27 Crenated Cell Not Reportable 12/22/20 04:27 Elliptocytes Not Reportable 12/22/20 04:27 Acanthocytes (Spur) Not Reportable 12/22/20 04:27 Rouleaux Not Reportable 12/22/20 04:27 Hemoglobin C Crystals Not Reportable 12/22/20 04:27 Schistocytes Not Reportable 12/22/20 04:27 Malaria parasites Not Reportable 12/22/20 04:27 David Bodies Not Reportable 12/22/20 04:27 Hem Pathologist Commnt No 12/22/20 04:27 Sodium 147 mmol/L (137-145) H 12/25/20 04:09 Potassium 4.0 mmol/L (3.6-5.0) 12/25/20 04:09 Chloride 110.6 mmol/L (98-107) H 12/25/20 04:09 Carbon Dioxide 28 mmol/L (22-30) 12/25/20 04:09 Anion Gap 12 mmol/L 12/25/20 04:09 BUN 19 mg/dL (7-17) H 12/25/20 04:09 Creatinine 0.7 mg/dL (0.6-1.2) 12/25/20 04:09 Estimated GFR > 60 ml/min 12/25/20 04:09 BUN/Creatinine Ratio 27 % 12/25/20 04:09 Glucose 84 mg/dL (65-100) 12/25/20 04:09 POC Glucose 96 mg/dL (70-105) 12/25/20 11:52 Lactic Acid 1.60 mmol/L (0.7-2.0) 12/19/20 05:10 Calcium 8.1 mg/dL (8.4-10.2) L 12/25/20 04:09 Magnesium 2.30 mg/dL (1.7-2.3) 12/22/20 04:27 Total Bilirubin 0.30 mg/dL (0.1-1.2) 12/25/20 04:09 AST 14 units/L (5-40) 12/25/20 04:09 ALT 13 units/L (7-56) 12/25/20 04:09 Alkaline Phosphatase 94 units/L (35-129) 12/25/20 04:09 Troponin T 0.102 ng/mL (0.00-0.029) H* 12/19/20 12:42 NT-Pro-B Natriuret Pep 4882 pg/mL (0-900) H 12/18/20 16:06 Total Protein 4.2 g/dL (6.3-8.2) L 12/25/20 04:09 Albumin 2.3 g/dL (3.9-5) L 12/25/20 04:09 Albumin/Globulin Ratio 1.2 % 12/25/20 04:09 Triglycerides 83 mg/dL (2-149) 12/19/20 12:42 Cholesterol 106 mg/dL (50-199) 12/19/20 12:42 LDL Cholesterol Direct 45 mg/dL (50-130) L 12/19/20 12:42 HDL Cholesterol 50 mg/dL (40-59) 12/19/20 12:42 Cholesterol/HDL Ratio 2.12 % 12/19/20 12:42 TSH 3.170 mlU/mL (0.270-4.200) 12/18/20 19:30 Free T4 1.24 ng/dL (0.76-1.46) 12/18/20 19:30 Coronavirus (PCR) Negative (Negative) 12/21/20 Unknown [place]uña/IV: Voiding Method External Female Catheter Active Medications - Current Medications Current Medications: Generic Name Dose Route Start Last Admin Trade Name Freq PRN Reason Stop Dose Admin Acetaminophen 650 mg 12/18/20 19:10 12/22/20 10:21 Acetaminophen 325 Mg Tab PO 650 mg Q4H PRN Administration Pain MILD(1-3)/Fever >100.5/LUTHER Albuterol 2.5 mg 12/18/20 19:10 12/23/20 14:23 Albuterol 2.5 Mg/3 Ml Nebu IH 2.5 mg Q4HRT PRN Administration Shortness Of Breath Amiodarone HCl 200 mg 12/26/20 10:00 Amiodarone 200 Mg Tab PO DAILY RICA Aripiprazole 10 mg 12/20/20 10:00 12/25/20 10:24 Aripiprazole 10 Mg Tab PO 10 mg DAILY RICA Administration Aspirin 81 mg 12/20/20 10:00 12/25/20 10:24 Aspirin Ec 81 Mg Tab PO 81 mg QDAY RICA Administration Atorvastatin Calcium 10 mg 12/20/20 22:00 12/24/20 23:26 Atorvastatin 10 Mg Tab PO 10 mg QHS RICA Administration Cetirizine HCl 10 mg 12/20/20 10:00 12/25/20 10:25 Cetirizine 10 Mg Tab PO 10 mg DAILY RICA Administration Cholecalciferol 5,000 unit 12/20/20 10:00 12/25/20 10:24 Cholecalciferol (Vit D3) 5,000 Unit Tab PO 5,000 unit DAILY RICA Administration Heparin Sodium (Porcine) 5,000 unit 12/18/20 22:00 12/25/20 10:27 Heparin 5,000 Unit/1 Ml Vial SUB-Q 5,000 unit Q12HR RICA Administration Hydralazine HCl 10 mg 12/23/20 01:31 12/23/20 02:18 Hydralazine 20 Mg/1 Ml Inj IV 10 mg Q6H PRN Administration Blood Pressure Hydromorphone HCl 0.25 mg 12/18/20 19:10 12/23/20 22:57 Hydromorphone 1 Mg/1 Ml Inj IV 0.25 mg Q4H PRN Administration Pain, Moderate (4-6) Hydromorphone HCl 0.5 mg 12/18/20 19:10 Hydromorphone 1 Mg/1 Ml Inj IV Q12H PRN Pain , Severe (7-10) Diltiazem HCl 100 mg in 100 mls @ 5 mls/hr 12/24/20 06:00 12/25/20 02:30 Cardizem/D5w 100mg/100ml IV 0 mg/hr DIRECT RICA 0 mls/hr Titration Protocol 5 MG/HR Insulin Glargine 5 units 12/23/20 22:00 12/24/20 23:28 Insulin Glargine 100 Units/Ml SUB-Q 5 units QHS RICA Administration Insulin Human Regular 0 units 12/21/20 11:30 12/25/20 12:00 Insulin Regular, Human 100 Units/1 Ml SUB-Q Not Given ACHS RICA Protocol Lisinopril 20 mg 12/24/20 10:00 12/25/20 10:26 Lisinopril 20 Mg Tab PO Not Given QDAY RICA Memantine 10 mg 12/20/20 10:00 12/25/20 10:25 Memantine 10 Mg Tab PO 10 mg BID RICA Administration Metoprolol Tartrate 100 mg 12/23/20 22:00 12/25/20 10:26 Metoprolol Tartrate 100 Mg Tab PO Not Given BID RICA Ondansetron HCl 4 mg 12/18/20 19:10 Ondansetron 4 Mg/2 Ml Inj IV Q8H PRN Nausea And Vomiting Oxycodone/Acetaminophen 1 tab 12/18/20 19:10 Oxycodone /Acetaminophen 5-325mg Tab PO Q12H PRN Pain, Moderate (4-6) Quetiapine Fumarate 50 mg 12/24/20 22:00 12/24/20 23:27 Quetiapine 25 Mg Tab PO 50 mg QHS RICA Administration Sertraline HCl 50 mg 12/22/20 22:00 12/24/20 23:27 Sertraline 50 Mg Tab PO 50 mg QHS RICA Administration Sodium Chloride 10 ml 12/18/20 22:00 12/25/20 10:24 Sodium Chloride 0.9% 10 Ml Flush Syringe IV 10 ml BID RICA Administration Sodium Chloride 10 ml 12/18/20 19:10 Sodium Chloride 0.9% 10 Ml Flush Syringe IV PRN PRN LINE FLUSH Nutrition/Malnutrition Assess - Dietary Evaluation Nutrition/Malnutrition Findings: Nutrition Notes Start: 12/19/20 11:30 Freq: Status: Active Protocol: Document 12/24/20 12:50 MK (Rec: 12/24/20 12:53 [id number]) Nutrition Notes Initial or Follow up Reassessment Current Diagnosis COPD,Sepsis,Hypertension,Heart Failure,Stroke,Hyperlipidemia Other Pertinent Diagnosis pneu, dementia, OA Current Diet pureed Labs/Tests Na 147 Pertinent Medications Reviewed Height 5 ft 6 in Weight 54.8 kg [place] Body Weight (kg) 59.09 BMI 19.5 Weight Status Underweight Subjective/Other Information FU for intakes. RN reports pt eating 25% of meals. Will try Nepro ONS as it is the only nectar like liquid ONS carried . Percent of energy/protein needs met: 27%/40% Burn Absent Trauma Absent Difficulty In Swallowing Current % PO Poor (25-49%) Minimum of two criteria No Body Fat Depletion Mild depletion (non-severe) #1 Nutrition Diagnosis Inadequate energy intake As Evidenced by Signs and Symptoms pt eating 25% of meals Diagnosis Progress(for reassessment Worsened documentation) Is patient on ventilator? No Is Patient Ambulatory and/or Out of Bed No [facility] 1225.104 Kcal/Kg value to use for calculation 29 Approximate Energy Requirements Using 1589 kcal/Kg Calculation Used for Recommendations Kcal/kg Additional Notes Protein: (1-1.2g/kg) 48-58g Fluid: 1ml/kcal or per MD Nutrition Intervention Change Diet Order: Continue current diet as ordered Add Supplement/Snack (indicate name/kcal Nepro daily /protein ) Provides kCal: 425 Provides Protein (gm) 19 Goal #1 Meet at least 80% of kcal and protein needs via PO Anticipated Discharge Needs: Pureed diet Follow-Up By: 12/28/20 Additional Comments F/U for intakes and ONS tolerance
--- NOTE | 2020-12-25 18:01 | Electrocardiograph Report ---
[facility] Test Date: 2020-12-25 Test Time: 07:27:07 Pat Name: DAMIAN BAIRD Department: Room: A456 1 Gender: F [employer] Lab[employer]: JULIEN : 1935 Requested By: DA PAZ Order Number: [id number] Reading MD: Cornel Price Measurements Intervals [place] Rate: 65 P: 0 [place]: 62 QRS: 44 QRSD: 107 T: 266 QT: 495 QTc: 516 Interpretive Statements Sinus rhythm Supraventricular bigeminy Probable anterior infarct, old Nonspecific T abnormalities, lateral leads Prolonged QT interval Compared to ECG 12/23/2020 09:26:28 T-wave abnormality now present Prolonged QT interval now present Sinus pause or arrest no longer present Myocardial infarct finding still present Electronically Signed On 12-25-2020 18:01:22 EDT by Cornel Price
[2020-12-25] MEDS: QUEtiapine 25 MG TAB PO SCH (22:52)
[2020-12-25] MEDS: SERTRALINE 50 MG TAB PO SCH (22:53)
[2020-12-25] MEDS: INSULIN GLARGINE 100 UNITS/ML SUB-Q SCH (22:54)
--- NOTE | 2020-12-26 09:37 | Progress Note ---
Assessment and Plan Assessment and plan: (1) Atrial fibrillation RVT/multifocal atrial tachycardia Supportive care, continue medical management. Echo 12/18/2020- EF 35-40%, normal left ventricular wall thickness, right ventricular systolic function normal, moderately dilated right atrium, mild aortic regurgitation, trace mitral and tricuspid regurgitation, no pulmonic regurgitation. Patient had 9 beat run of VTach overnight on 12/21, afib rvr with vent rate of 150-160 on 12/23. Continuous telemetry monitoring Lopressor 100 mg po bid. Amiodarone 200 mg p.o. bid started for improved heart rate control Cardiology following (2) Acute respiratory failure with hypoxia - improving Telemetry, pulse oximetry Possibly due to aspiration pneumonia 12/21/2020 CXR demonstrates bilateral opacities. Official read per radiology [place] thick liquids, aspiration precautions Continue Rocephin IV, azithromycin IV Continue Solu-Medrol until 12/22. Needs walking O2 test to determine qualification for home oxygen (3) Vascular dementia Continue aspirin and atorvastatin. Discontinue Xanax Continue aripiprazole Start Seroquel nightly (4) Cerebral atherosclerosis Supportive care, risk factor reduction, antiplatelet therapy as clinically yvonne cated. (5) Malnutrition Dietary supplementation, increase protein intake when awake and alert only. [place] thick liquids Aspiration precautions (6) Aspiration pneumonitis Supportive care Regimen as above (7) heart failure with reduced ejection fraction Echo findings as above GDMT: metoprolol and lisinopril Cardiology following (8) Sepsis (resolved) Management as above (9) DVT prophylaxis SCD to bilateral lower extremities while in bed, prophylactic anticoagulation (10) Advance care planning Case management is consulted. Once medically cleared patient can be discharged back to facility. Patient may need home oxygen set up, will attempt to do walking O2 test prior to discharge to determine if patient needs supplemental oxygen oxygen. Patient insurance authorization for SNF declined. currently working to contact insurance company to resolve issue. Case management assisting. Discussed with [facility] physician today hopefully they can help facilitate. History Interval history: 12/26/2020: Patient has no acute complaints this morning. No overnight events. Heart rate still rate controlled. Placement still continues to be an issue. Discussed with Dionte Lópze Over phone who stated that they will try to work on their to hopefully help patient with placement. 12/25/2020: Patient has no acute complaints this morning. Heart rate more effectively controlled with amiodarone. Currently working on placement to SNF. Insurance declined authorization. currently working with insurance company in conjunction with case management to find a solution for . We will attempt a walking O2 test today to see if patient qualifies for home oxygen. Potential discharge today or tomorrow 12/24/2020: Patient has no acute complaints this morning. Overnight heart rate was in 150s to 160s. Diltiazem drip was initiated. Discussed patient case with cardiology this morning, will be starting amiodarone on patient. Discharge pending improvement of heart rate. Blood pressure also noted to be elevated this morning. Added KELSEY inhibitor for improved blood pressure control and for guideline directed medical therapy for CHF. 12/23/20: Patient still requiring oxygen at 2 L NC. This AM attempted to go to restroom and had episode of Afib RVR with rate in 150-160. Patient was as ymptomatic during this episdoe. Given lopressor 5 mg IV x 1 and responded. Metoprolol dosing changed to Toprol 100 mg po bid by cardiology. Will likely require additional night stay. Plan for d/c and patient to potentially go home on home O2. Discussed plan with patient and CM. 12/22/20: Patient resting comfortably in bed. No acute complaints on encounter. Nasal cannula not appropriately positioned however patient is saturating in the mid 90s. Discussed with nurse about discontinuing O2 and checking sat post discontinuation. Hospitalist Physical - Physical exam Narrative exam: Physical Exam: GENERAL APPEARANCE: Well developed, thin, alert and cooperative, and appears to be in no acute distress. Answers yes/no questions. HEAD: normocephalic. EYES: PERRL, EOMI. Vision is grossly intact. EARS: No gross deformities NOSE: No nasal discharge. THROAT: Oral cavity and pharynx normal. No inflammation, swelling, exudate, or lesions. Teeth and gingiva in good general condition. NECK: Neck supple, non-tender without lymphadenopathy, masses or thyromegaly. CARDIAC: Rhythm is irrregualr, tachycardic on initial encounter. There is no peripheral edema, cyanosis or pallor. Extremities are warm and well perfused. Capillary refill is less than 2 seconds. No carotid bruits. LUNGS: Normal lung exam. Poor air movement. No cyanosis or respiratory distress noted. ABDOMEN: Positive bowel sounds. Soft, nondistended, nontender. No guarding or rebound. No masses. MUSKULOSKELETAL: Adequately aligned spine. ROM intact spine and extremities. No joint erythema or tenderness. BACK: Examination of the spine reveals normal gait and posture EXTREMITIES: No significant deformity or joint abnormality. No edema. Peripheral pulses intact. No varicosities. NEUROLOGICAL: CN II-XII intact. Strength and sensation symmetric and intact th roughout. Reflexes 2+ throughout. PSYCHIATRIC: The mental examination revealed the patient was oriented to person. Patient appears to be pleasantly demented. - Constitutional Vitals: Temp Pulse Resp BP Pulse Ox 97.3 F L 74 18 139/64 92 12/26/20 07:47 12/26/20 07:47 12/26/20 07:47 12/26/20 07:47 12/26/20 08:36 General appearance: Present: no acute distress, well-nourished HEART Score - HEART Score Troponin: Troponin T 0.102 ng/mL (0.00-0.029) H* 12/19/20 12:42 Results - Labs CBC & Chem 7: 12/22/20 04:27 12/25/20 04:09 Labs: Laboratory Last Values WBC 15.0 K/mm3 (4.5-11.0) H 12/22/20 04:27 RBC 4.38 M/mm3 (3.65-5.03) 12/22/20 04:27 Hgb 13.7 gm/dl (10.1-14.3) 12/22/20 04:27 Hct 41.1 % (30.3-42.9) 12/22/20 04:27 MCV 94 fl (79-97) 12/22/20 04:27 MCH 31 pg (28-32) 12/22/20 04:27 MCHC 33 % (30-34) 12/22/20 04:27 RDW 14.0 % (13.2-15.2) 12/22/20 04:27 Plt Count 304 K/mm3 (140-440) 12/22/20 04:27 Lymph % (Auto) 2.4 % (13.4-35.0) L 12/18/20 16:06 [place] % (Auto) 9.0 % (0.0-7.3) H 12/18/20 16:06 Eos % (Auto) 0.1 % (0.0-4.3) 12/18/20 16:06 Baso % (Auto) 1.2 % (0.0-1.8) 12/18/20 16:06 Lymph # (Auto) 0.4 K/mm3 (1.2-5.4) L 12/18/20 16:06 [place] # (Auto) 1.5 K/mm3 (0.0-0.8) H 12/18/20 16:06 Eos # (Auto) 0.0 K/mm3 (0.0-0.4) 12/18/20 16:06 Baso # (Auto) 0.2 K/mm3 (0.0-0.1) H 12/18/20 16:06 Add Manual Diff Complete 12/22/20 04:27 Total Counted 100 12/22/20 04:27 Seg Neutrophils % Medicaid Collection Specialist 12/22/20 04:27 Seg Neuts % (Manual) 93.0 % (40.0-70.0) H 12/22/20 04:27 Band Neutrophils % 3.0 % 12/22/20 04:27 Lymphocytes % (Manual) 3.0 % (13.4-35.0) L 12/22/20 04:27 Monocytes % (Manual) 1.0 % (0.0-7.3) 12/22/20 04:27 Nucleated RBC % Not Reportable 12/22/20 04:27 Seg Neutrophils # 14.2 K/mm3 (1.8-7.7) H 12/18/20 16:06 Seg Neutrophils # Man 14.0 K/mm3 (1.8-7.7) H 12/22/20 04:27 Band Neutrophils # 0.5 K/mm3 12/22/20 04:27 Lymphocytes # (Manual) 0.5 K/mm3 (1.2-5.4) L 12/22/20 04:27 Abs React Lymphs (Man) 0.0 K/mm3 12/22/20 04:27 Monocytes # (Manual) 0.2 K/mm3 (0.0-0.8) 12/22/20 04:27 Eosinophils # (Manual) 0.0 K/mm3 (0.0-0.4) 12/22/20 04:27 Basophils # (Manual) 0.0 K/mm3 (0.0-0.1) 12/22/20 04:27 Metamyelocytes # 0.0 K/mm3 12/22/20 04:27 Myelocytes # 0.0 K/mm3 12/22/20 04:27 Promyelocytes # 49.8 K/mm3 12/22/20 04:27 Blast Cells # 0.0 K/mm3 12/22/20 04:27 WBC Morphology Not Reportable 12/22/20 04:27 Hypersegmented Neuts Not Reportable 12/22/20 04:27 Hyposegmented Neuts Not Reportable 12/22/20 04:27 Hypogranular Neuts Not Reportable 12/22/20 04:27 Smudge Cells Not Reportable 12/22/20 04:27 Toxic Granulation Not Reportable 12/22/20 04:27 Toxic Vacuolation Not Reportable 12/22/20 04:27 Dohle Bodies Not Reportable 12/22/20 04:27 Pelger-Huet Anomaly Not Reportable 12/22/20 04:27 Mina Rods Not Reportable 12/22/20 04:27 Platelet Estimate Consistent w auto 12/22/20 04:27 Clumped Platelets Not Reportable 12/22/20 04:27 Plt Clumps, EDTA Not Reportable 12/22/20 04:27 Large Platelets Not Reportable 12/22/20 04:27 Giant Platelets Not Reportable 12/22/20 04:27 Platelet Satelliting Not Reportable 12/22/20 04:27 Plt Morphology Comment Not Reportable 12/22/20 04:27 RBC Morphology Normal 12/22/20 04:27 Dimorphic RBCs Not Reportable 12/22/20 04:27 Polychromasia Not Reportable 12/22/20 04:27 Hypochromasia Not Reportable 12/22/20 04:27 Poikilocytosis Not Reportable 12/22/20 04:27 Anisocytosis Not Reportable 12/22/20 04:27 Microcytosis Not Reportable 12/22/20 04:27 Macrocytosis Not Reportable 12/22/20 04:27 Spherocytes Not Reportable 12/22/20 04:27 Pappenheimer Bodies Not Reportable 12/22/20 04:27 Sickle Cells Not Reportable 12/22/20 04:27 Target Cells Not Reportable 12/22/20 04:27 Tear Drop Cells Not Reportable 12/22/20 04:27 Ovalocytes Not Reportable 12/22/20 04:27 Helmet Cells Not Reportable 12/22/20 04:27 [place] Bodies Not Reportable 12/22/20 04:[address] [place] [address] Rings Not Reportable 12/22/20 04:27 [place] Cells Not Reportable 12/22/20 04:27 Bite Cells Not Reportable 12/22/20 04:27 Crenated Cell Not Reportable 12/22/20 04:27 Elliptocytes Not Reportable 12/22/20 04:27 Acanthocytes (Spur) Not Reportable 12/22/20 04:27 Rouleaux Not Reportable 12/22/20 04:27 Hemoglobin C Crystals Not Reportable 12/22/20 04:27 Schistocytes Not Reportable 12/22/20 04:27 Malaria parasites Not Reportable 12/22/20 04:27 David Bodies Not Reportable 12/22/20 04:27 Hem Pathologist Commnt No 12/22/20 04:27 Sodium 147 mmol/L (137-145) H 12/25/20 04:09 Potassium 4.0 mmol/L (3.6-5.0) 12/25/20 04:09 Chloride 110.6 mmol/L (98-107) H 12/25/20 04:09 Carbon Dioxide 28 mmol/L (22-30) 12/25/20 04:09 Anion Gap 12 mmol/L 12/25/20 04:09 BUN 19 mg/dL (7-17) H 12/25/20 04:09 Creatinine 0.7 mg/dL (0.6-1.2) 12/25/20 04:09 Estimated GFR > 60 ml/min 12/25/20 04:09 BUN/Creatinine Ratio 27 % 12/25/20 04:09 Glucose 84 mg/dL (65-100) 12/25/20 04:09 POC Glucose 95 mg/dL (70-105) 12/26/20 07:31 Lactic Acid 1.60 mmol/L (0.7-2.0) 12/19/20 05:10 Calcium 8.1 mg/dL (8.4-10.2) L 12/25/20 04:09 Magnesium 2.30 mg/dL (1.7-2.3) 12/22/20 04:27 Total Bilirubin 0.30 mg/dL (0.1-1.2) 12/25/20 04:09 AST 14 units/L (5-40) 12/25/20 04:09 ALT 13 units/L (7-56) 12/25/20 04:09 Alkaline Phosphatase 94 units/L (35-129) 12/25/20 04:09 Troponin T 0.102 ng/mL (0.00-0.029) H* 12/19/20 12:42 NT-Pro-B Natriuret Pep 4882 pg/mL (0-900) H 12/18/20 16:06 Total Protein 4.2 g/dL (6.3-8.2) L 12/25/20 04:09 Albumin 2.3 g/dL (3.9-5) L 12/25/20 04:09 Albumin/Globulin Ratio 1.2 % 12/25/20 04:09 Triglycerides 83 mg/dL (2-149) 12/19/20 12:42 Cholesterol 106 mg/dL (50-199) 12/19/20 12:42 LDL Cholesterol Direct 45 mg/dL (50-130) L 12/19/20 12:42 HDL Cholesterol 50 mg/dL (40-59) 12/19/20 12:42 Cholesterol/HDL Ratio 2.12 % 12/19/20 12:42 TSH 3.170 mlU/mL (0.270-4.200) 12/18/20 19:30 Free T4 1.24 ng/dL (0.76-1.46) 12/18/20 19:30 Coronavirus (PCR) Negative (Negative) 12/21/20 Unknown Acuña/IV: Voiding Method External Female Catheter Active Medications - Current Medications Current Medications: Generic Name Dose Route Start Last Admin Trade Name Freq PRN Reason Stop Dose Admin Acetaminophen 650 mg 12/18/20 19:10 12/22/20 10:21 Acetaminophen 325 Mg Tab PO 650 mg Q4H PRN Administration Pain MILD(1-3)/Fever >100.5/LUTHER Albuterol 2.5 mg 12/18/20 19:10 12/23/20 14:23 Albuterol 2.5 Mg/3 Ml Nebu IH 2.5 mg Q4HRT PRN Administration Shortness Of Breath Amiodarone HCl 200 mg 12/26/20 10:00 Amiodarone 200 Mg Tab PO DAILY RICA Aripiprazole 10 mg 12/20/20 10:00 12/25/20 10:24 Aripiprazole 10 Mg Tab PO 10 mg DAILY RICA Administration Aspirin 81 mg 12/20/20 10:00 12/25/20 10:24 Aspirin Ec 81 Mg Tab PO 81 mg QDAY RICA Administration Atorvastatin Calcium 10 mg 12/20/20 22:00 12/25/20 22:53 Atorvastatin 10 Mg Tab PO 10 mg QHS RICA Administration Cetirizine HCl 10 mg 12/20/20 10:00 12/25/20 10:25 Cetirizine 10 Mg Tab PO 10 mg DAILY RICA Administration Cholecalciferol 5,000 unit 12/20/20 10:00 12/25/20 10:24 Cholecalciferol (Vit D3) 5,000 Unit Tab PO 5,000 unit DAILY RICA Administration Heparin Sodium (Porcine) 5,000 unit 12/18/20 22:00 12/25/20 22:53 Heparin 5,000 Unit/1 Ml Vial SUB-Q 5,000 unit Q12HR RICA Administration Hydralazine HCl 10 mg 12/23/20 01:31 12/23/20 02:18 Hydralazine 20 Mg/1 Ml Inj IV 10 mg Q6H PRN Administration Blood Pressure Hydromorphone HCl 0.25 mg 12/18/20 19:10 12/23/20 22:57 Hydromorphone 1 Mg/1 Ml Inj IV 0.25 mg Q4H PRN Administration Pain, Moderate (4-6) Hydromorphone HCl 0.5 mg 12/18/20 19:10 Hydromorphone 1 Mg/1 Ml Inj IV Q12H PRN Pain , Severe (7-10) Diltiazem HCl 100 mg in 100 mls @ 5 mls/hr 12/24/20 06:00 12/25/20 02:30 Cardizem/D5w 100mg/100ml IV 0 mg/hr DIRECT RICA 0 mls/hr Titration Protocol 5 MG/HR Insulin Glargine 5 units 12/23/20 22:00 12/25/20 22:54 Insulin Glargine 100 Units/Ml SUB-Q Not Given QHS [facility] Insulin Human Regular 0 units 12/21/20 11:30 12/25/20 22:55 Insulin Regular, Human 100 Units/1 Ml SUB-Q Not Given ACHS [facility] Protocol Lisinopril 20 mg 12/24/20 10:00 12/25/20 10:26 Lisinopril 20 Mg Tab PO Not Given QDAY RICA Memantine 10 mg 12/20/20 10:00 12/25/20 22:53 Memantine 10 Mg Tab PO 10 mg BID RICA Administration Metoprolol Tartrate 100 mg 12/23/20 22:00 12/25/20 22:53 Metoprolol Tartrate 100 Mg Tab PO 100 mg BID RICA Administration Ondansetron HCl 4 mg 12/18/20 19:10 Ondansetron 4 Mg/2 Ml Inj IV Q8H PRN Nausea And Vomiting Oxycodone/Acetaminophen 1 tab 12/18/20 19:10 Oxycodone /Acetaminophen 5-325mg Tab PO Q12H PRN Pain, Moderate (4-6) Quetiapine Fumarate 50 mg 12/24/20 22:00 12/25/20 22:52 Quetiapine 25 Mg Tab PO 50 mg QHS RICA Administration Sertraline HCl 50 mg 12/22/20 22:00 12/25/20 22:53 Sertraline 50 Mg Tab PO 50 mg QHS RICA Administration Sodium Chloride 10 ml 12/18/20 22:00 12/25/20 22:54 Sodium Chloride 0.9% 10 Ml Flush Syringe IV 10 ml BID RICA Administration Sodium Chloride 10 ml 12/18/20 19:10 Sodium Chloride 0.9% 10 Ml Flush Syringe IV PRN PRN LINE FLUSH Nutrition/Malnutrition Assess - Dietary Evaluation Nutrition/Malnutrition Findings: Nutrition Notes Start: 12/19/20 11:30 Freq: Status: Active Protocol: Document 12/24/20 12:50 MK (Rec: 12/24/20 12:53 [email or web address]) Nutrition Notes Initial or Follow up Reassessment Current Diagnosis COPD,Sepsis,Hypertension,Heart Failure,Stroke,Hyperlipidemia Other Pertinent Diagnosis pneu, dementia, OA Current Diet pureed Labs/Tests Na 147 Pertinent Medications Reviewed Height 5 ft 6 in Weight 54.8 kg Midnight Body Weight (kg) 59.09 BMI 19.5 Weight Status Underweight Subjective/Other Information FU for intakes. RN reports pt eating 25% of meals. Will try Nepro ONS as it is the only nectar like liquid ONS carried . Percent of energy/protein needs met: 27%/40% Burn Absent Trauma Absent Difficulty In Swallowing Current % PO Poor (25-49%) Minimum of two criteria No Body Fat Depletion Mild depletion (non-severe) #1 Nutrition Diagnosis Inadequate energy intake As Evidenced by Signs and Symptoms pt eating 25% of meals Diagnosis Progress(for reassessment Worsened documentation) Is patient on ventilator? No Is Patient Ambulatory and/or Out of Bed No REE-([facility]-confined to bed) 1225.104 Kcal/Kg value to use for calculation 29 Approximate Energy Requirements Using 1589 kcal/Kg Calculation Used for Recommendations Kcal/kg Additional Notes Protein: (1-1.2g/kg) 48-58g Fluid: 1ml/kcal or per MD Nutrition Intervention Change Diet Order: Continue current diet as ordered Add Supplement/Snack (indicate name/kcal Nepro daily /protein ) Provides kCal: 425 Provides Protein (gm) 19 Goal #1 Meet at least 80% of kcal and protein needs via PO Anticipated Discharge Needs: Pureed diet Follow-Up By: 12/28/20 Additional Comments F/U for intakes and ONS tolerance
[2020-12-26] MEDS: HEPARIN 5,000 UNIT/1 ML VIAL SUB-Q SCH ×2 (10:40→22:31)
[2020-12-26] MEDS: AMIODARONE 200 MG TAB PO SCH (10:41)
[2020-12-26] MEDS: ASPIRIN EC 81 MG TAB PO SCH (10:41)
[2020-12-26] MEDS: CHOLECALCIFEROL (VIT D3) 5,000 UNIT TAB PO SCH (10:41)
[2020-12-26] MEDS: ARIPiprazole 10 MG TAB PO SCH (10:41)
[2020-12-26] MEDS: METOPROLOL TARTRATE 100 MG TAB PO SCH ×2 (10:41→22:29)
[2020-12-26] MEDS: CETIRIZINE 10 MG TAB PO SCH (10:43)
[2020-12-26] MEDS: MEMANTINE 10 MG TAB PO SCH ×2 (10:43→22:29)
[2020-12-26] MEDS: LISINOPRIL 20 MG TAB PO SCH (10:43)
[2020-12-26] MEDS: INSULIN REGULAR, HUMAN 100 UNITS/1 ML SUB-Q SCH ×4 (10:46→22:58)
[2020-12-26] MEDS: INSULIN GLARGINE 100 UNITS/ML SUB-Q SCH (22:29)
[2020-12-26] MEDS: QUEtiapine 25 MG TAB PO SCH (22:30)
[2020-12-26] MEDS: SERTRALINE 50 MG TAB PO SCH (22:30)
[2020-12-27] MEDS: INSULIN REGULAR, HUMAN 100 UNITS/1 ML SUB-Q SCH ×4 (08:24→22:00)
[2020-12-27] MEDS: CETIRIZINE 10 MG TAB PO SCH (10:44)
[2020-12-27] MEDS: MEMANTINE 10 MG TAB PO SCH ×2 (10:44→22:08)
[2020-12-27] MEDS: ASPIRIN EC 81 MG TAB PO SCH (10:44)
[2020-12-27] MEDS: HEPARIN 5,000 UNIT/1 ML VIAL SUB-Q SCH ×2 (10:44→22:09)
[2020-12-27] MEDS: AMIODARONE 200 MG TAB PO SCH (10:44)
[2020-12-27] MEDS: ARIPiprazole 10 MG TAB PO SCH (10:44)
[2020-12-27] MEDS: METOPROLOL TARTRATE 100 MG TAB PO SCH ×2 (10:45→22:09)
[2020-12-27] MEDS: LISINOPRIL 20 MG TAB PO SCH (10:45)
[2020-12-27] MEDS: CHOLECALCIFEROL (VIT D3) 5,000 UNIT TAB PO SCH (10:49)
--- NOTE | 2020-12-27 14:51 | Progress Note ---
Assessment and Plan Assessment and plan: (1) Atrial fibrillation RVT/multifocal atrial tachycardia Supportive care, continue medical management. Echo 12/18/2020- EF 35-40%, normal left ventricular wall thickness, right ventricular systolic function normal, moderately dilated right atrium, mild aortic regurgitation, trace mitral and tricuspid regurgitation, no pulmonic regurgitation. Patient had 9 beat run of VTach overnight on 12/21, afib rvr with vent rate of 150-160 on 12/23. Continuous telemetry monitoring Lopressor 100 mg po bid. Amiodarone 200 mg p.o. bid started for improved heart rate control Cardiology following (2) Acute respiratory failure with hypoxia - improving Telemetry, pulse oximetry Possibly due to aspiration pneumonia 12/21/2020 CXR demonstrates bilateral opacities. Official read per radiology Elvaston thick liquids, aspiration precautions Continue Rocephin IV, azithromycin IV Continue Solu-Medrol until 12/22. Needs walking O2 test to determine qualification for home oxygen (3) Vascular dementia Continue aspirin and atorvastatin. Discontinue Xanax Continue aripiprazole Start Seroquel nightly (4) Cerebral atherosclerosis Supportive care, risk factor reduction, antiplatelet therapy as clinically yvonne cated. (5) Malnutrition Dietary supplementation, increase protein intake when awake and alert only. Elvaston thick liquids Aspiration precautions (6) Aspiration pneumonitis Supportive care Regimen as above (7) heart failure with reduced ejection fraction Echo findings as above GDMT: metoprolol and lisinopril Cardiology following (8) Sepsis (resolved) Management as above (9) DVT prophylaxis SCD to bilateral lower extremities while in bed, prophylactic anticoagulation (10) Advance care planning Case management is consulted. Once medically cleared patient can be discharged back to facility. Patient may need home oxygen set up, will attempt to do walking O2 test prior to discharge to determine if patient needs supplemental oxygen oxygen. Patient insurance authorization for SNF declined. currently working to contact insurance company to resolve issue. Case management assisting. Discussed with [place] physician today hopefully they can help facilitate. History Interval history: 12/27/2020: Patient has no acute complaints this morning. Only concerned that her family does not know she is in hospital patient was reassured that family does not fact know she is in hospital. Will need to follow-up with case management regarding placement status. 12/26/2020: Patient has no acute complaints this morning. No overnight events. Heart rate still rate controlled. Placement still continues to be an issue. Discussed with Dionte López Over phone who stated that they will try to work on their to hopefully help patient with placement. 12/25/2020: Patient has no acute complaints this morning. Heart rate more effectively controlled with amiodarone. Currently working on placement to SNF. Insurance declined authorization. currently working with insurance company in conjunction with case management to find a solution for . We will attempt a walking O2 test today to see if patient qualifies for home oxygen. Potential discharge today or tomorrow 12/24/2020: Patient has no acute complaints this morning. Overnight heart rate was in 150s to 160s. Diltiazem drip was initiated. Discussed patient case with cardiology this morning, will be starting amiodarone on patient. Discharge pending improvement of heart rate. Blood pressure also noted to be elevated this morning. Added KELSEY inhibitor for improved blood pressure control and for guideline directed medical therapy for CHF. 12/23/20: Patient still requiring oxygen at 2 L NC. This AM attempted to go to restroom and had episode of Afib RVR with rate in 150-160. Patient was asymptomatic during this episdoe. Given lopressor 5 mg IV x 1 and responded. Metoprolol dosing changed to Toprol 100 mg po bid by cardiology. Will likely require additional night stay. Plan for d/c and patient to potentially go home o n home O2. Discussed plan with patient and CM. 12/22/20: Patient resting comfortably in bed. No acute complaints on encounter. Nasal cannula not appropriately positioned however patient is saturating in the mid 90s. Discussed with nurse about discontinuing O2 and checking sat post discontinuation. Hospitalist Physical - Physical exam Narrative exam: Physical Exam: GENERAL APPEARANCE: Well developed, thin, alert and cooperative, and appears to be in no acute distress. Answers yes/no questions. HEAD: normocephalic. EYES: PERRL, EOMI. Vision is grossly intact. EARS: No gross deformities NOSE: No nasal discharge. THROAT: Oral cavity and pharynx normal. No inflammation, swelling, exudate, or lesions. Teeth and gingiva in good general condition. NECK: Neck supple, non-tender without lymphadenopathy, masses or thyromegaly. CARDIAC: Rhythm is irrregualr, tachycardic on initial encounter. There is no peripheral edema, cyanosis or pallor. Extremities are warm and well perfused. Capillary refill is less than 2 seconds. No carotid bruits. LUNGS: Normal lung exam. Poor air movement. No cyanosis or respiratory distress noted. ABDOMEN: Positive bowel sounds. Soft, nondistended, nontender. No guarding or rebound. No masses. MUSKULOSKELETAL: Adequately aligned spine. ROM intact spine and extremities. No joint erythema or tenderness. BACK: Examination of the spine reveals normal gait and posture EXTREMITIES: No significant deformity or joint abnormality. No edema. Peripheral pulses intact. No varicosities. NEUROLOGICAL: CN II-XII intact. Strength and sensation symmetric and intact throughout. Reflexes 2+ throughout. PSYCHIATRIC: The mental examination revealed the patient was oriented to person. Patient appears to be pleasantly demented. - Constitutional Vitals: Temp Pulse Resp BP Pulse Ox 97.7 F 66 16 133/54 100 12/27/20 12:31 12/27/20 12:32 12/27/20 07:41 12/27/20 12:32 12/27/20 12:32 General appearance: Present: no acute distress, well-nourished HEART Score - HEART Score Troponin: Troponin T 0.102 ng/mL (0.00-0.029) H* 12/19/20 12:42 Results - Labs CBC & Chem 7: 12/22/20 04:27 12/25/20 04:09 Labs: Laboratory Last Values WBC 15.0 K/mm3 (4.5-11.0) H 12/22/20 04:27 RBC 4.38 M/mm3 (3.65-5.03) 12/22/20 04:27 Hgb 13.7 gm/dl (10.1-14.3) 12/22/20 04:27 Hct 41.1 % (30.3-42.9) 12/22/20 04:27 MCV 94 fl (79-97) 12/22/20 04:27 MCH 31 pg (28-32) 12/22/20 04:27 MCHC 33 % (30-34) 12/22/20 04:27 RDW 14.0 % (13.2-15.2) 12/22/20 04:27 Plt Count 304 K/mm3 (140-440) 12/22/20 04:27 Lymph % (Auto) 2.4 % (13.4-35.0) L 12/18/20 16:06 [place]ison % (Auto) 9.0 % (0.0-7.3) H 12/18/20 16:06 Eos % (Auto) 0.1 % (0.0-4.3) 12/18/20 16:06 Baso % (Auto) 1.2 % (0.0-1.8) 12/18/20 16:06 Lymph # (Auto) 0.4 K/mm3 (1.2-5.4) L 12/18/20 16:06 Davison # (Auto) 1.5 K/mm3 (0.0-0.8) H 12/18/20 16:06 Eos # (Auto) 0.0 K/mm3 (0.0-0.4) 12/18/20 16:06 Baso # (Auto) 0.2 K/mm3 (0.0-0.1) H 12/18/20 16:06 Add Manual Diff Complete 12/22/20 04:27 Total Counted 100 12/22/20 04:27 Seg Neutrophils % Set Up Operator Tool 12/22/20 04:27 Seg Neuts % (Manual) 93.0 % (40.0-70.0) H 12/22/20 04:27 Band Neutrophils % 3.0 % 12/22/20 04:27 Lymphocytes % (Manual) 3.0 % (13.4-35.0) L 12/22/20 04:27 Monocytes % (Manual) 1.0 % (0.0-7.3) 12/22/20 04:27 Nucleated RBC % Not Reportable 12/22/20 04:27 Seg Neutrophils # 14.2 K/mm3 (1.8-7.7) H 12/18/20 16:06 Seg Neutrophils # Man 14.0 K/mm3 (1.8-7.7) H 12/22/20 04:27 Band Neutrophils # 0.5 K/mm3 12/22/20 04:27 Lymphocytes # (Manual) 0.5 K/mm3 (1.2-5.4) L 12/22/20 04:27 Abs React Lymphs (Man) 0.0 K/mm3 12/22/20 04:27 Monocytes # (Manual) 0.2 K/mm3 (0.0-0.8) 12/22/20 04:27 Eosinophils # (Manual) 0.0 K/mm3 (0.0-0.4) 12/22/20 04:27 Basophils # (Manual) 0.0 K/mm3 (0.0-0.1) 12/22/20 04:27 Metamyelocytes # 0.0 K/mm3 12/22/20 04:27 Myelocytes # 0.0 K/mm3 12/22/20 04:27 Promyelocytes # 49.8 K/mm3 12/22/20 04:27 Blast Cells # 0.0 K/mm3 12/22/20 04:27 WBC Morphology Not Reportable 12/22/20 04:27 Hypersegmented Neuts Not Reportable 12/22/20 04:27 Hyposegmented Neuts Not Reportable 12/22/20 04:27 Hypogranular Neuts Not Reportable 12/22/20 04:27 Smudge Cells Not Reportable 12/22/20 04:27 Toxic Granulation Not Reportable 12/22/20 04:27 Toxic Vacuolation Not Reportable 12/22/20 04:27 Dohle Bodies Not Reportable 12/22/20 04:27 Pelger-Huet Anomaly Not Reportable 12/22/20 04:27 Mina Rods Not Reportable 12/22/20 04:27 Platelet Estimate Consistent w auto 12/22/20 04:27 Clumped Platelets Not Reportable 12/22/20 04:27 Plt Clumps, EDTA Not Reportable 12/22/20 04:27 Large Platelets Not Reportable 12/22/20 04:27 Giant Platelets Not Reportable 12/22/20 04:27 Platelet Satelliting Not Reportable 12/22/20 04:27 Plt Morphology Comment Not Reportable 12/22/20 04:27 RBC Morphology Normal 12/22/20 04:27 Dimorphic RBCs Not Reportable 12/22/20 04:27 Polychromasia Not Reportable 12/22/20 04:27 Hypochromasia Not Reportable 12/22/20 04:27 Poikilocytosis Not Reportable 12/22/20 04:27 Anisocytosis Not Reportable 12/22/20 04:27 Microcytosis Not Reportable 12/22/20 04:27 Macrocytosis Not Reportable 12/22/20 04:27 Spherocytes Not Reportable 12/22/20 04:27 Pappenheimer Bodies Not Reportable 12/22/20 04:27 Sickle Cells Not Reportable 12/22/20 04:27 Target Cells Not Reportable 12/22/20 04:27 Tear Drop Cells Not Reportable 12/22/20 04:27 Ovalocytes Not Reportable 12/22/20 04:27 Helmet Cells Not Reportable 12/22/20 04:27 [place] Bodies Not Reportable 12/22/20 04:27 [place] Rings Not Reportable 12/22/20 04:27 [place] Cells Not Reportable 12/22/20 04:27 Bite Cells Not Reportable 12/22/20 04:27 Crenated Cell Not Reportable 12/22/20 04:27 Elliptocytes Not Reportable 12/22/20 04:27 Acanthocytes (Spur) Not Reportable 12/22/20 04:27 Rouleaux Not Reportable 12/22/20 04:27 Hemoglobin C Crystals Not Reportable 12/22/20 04:27 Schistocytes Not Reportable 12/22/20 04:27 Malaria parasites Not Reportable 12/22/20 04:27 David Bodies Not Reportable 12/22/20 04:27 Hem Pathologist Commnt No 12/22/20 04:27 Sodium 147 mmol/L (137-145) H 12/25/20 04:09 Potassium 4.0 mmol/L (3.6-5.0) 12/25/20 04:09 Chloride 110.6 mmol/L (98-107) H 12/25/20 04:09 Carbon Dioxide 28 mmol/L (22-30) 12/25/20 04:09 Anion Gap 12 mmol/L 12/25/20 04:09 BUN 19 mg/dL (7-17) H 12/25/20 04:09 Creatinine 0.7 mg/dL (0.6-1.2) 12/25/20 04:09 Estimated GFR > 60 ml/min 12/25/20 04:09 BUN/Creatinine Ratio 27 % 12/25/20 04:09 Glucose 84 mg/dL (65-100) 12/25/20 04:09 POC Glucose 160 mg/dL (70-105) H 12/27/20 10:23 Lactic Acid 1.60 mmol/L (0.7-2.0) 12/19/20 05:10 Calcium 8.1 mg/dL (8.4-10.2) L 12/25/20 04:09 Magnesium 2.30 mg/dL (1.7-2.3) 12/22/20 04:27 Total Bilirubin 0.30 mg/dL (0.1-1.2) 12/25/20 04:09 AST 14 units/L (5-40) 12/25/20 04:09 ALT 13 units/L (7-56) 12/25/20 04:09 Alkaline Phosphatase 94 units/L (35-129) 12/25/20 04:09 Troponin T 0.102 ng/mL (0.00-0.029) H* 12/19/20 12:42 NT-Pro-B Natriuret Pep 4882 pg/mL (0-900) H 12/18/20 16:06 Total Protein 4.2 g/dL (6.3-8.2) L 12/25/20 04:09 Albumin 2.3 g/dL (3.9-5) L 12/25/20 04:09 Albumin/Globulin Ratio 1.2 % 12/25/20 04:09 Triglycerides 83 mg/dL (2-149) 12/19/20 12:42 Cholesterol 106 mg/dL (50-199) 12/19/20 12:42 LDL Cholesterol Direct 45 mg/dL (50-130) L 12/19/20 12:42 HDL Cholesterol 50 mg/dL (40-59) 12/19/20 12:42 Cholesterol/HDL Ratio 2.12 % 12/19/20 12:42 TSH 3.170 mlU/mL (0.270-4.200) 12/18/20 19:30 Free T4 1.24 ng/dL (0.76-1.46) 12/18/20 19:30 Coronavirus (PCR) Negative (Negative) 12/21/20 Unknown Acuña/IV: Voiding Method Incontinent Active Medications - Current Medications Current Medications: Generic Name Dose Route Start Last Admin Trade Name Freq PRN Reason Stop Dose Admin Acetaminophen 650 mg 12/18/20 19:10 12/22/20 10:21 Acetaminophen 325 Mg Tab PO 650 mg Q4H PRN Administration Pain MILD(1-3)/Fever >100.5/LUTHER Albuterol 2.5 mg 12/18/20 19:10 12/23/20 14:23 Albuterol 2.5 Mg/3 Ml Nebu IH 2.5 mg Q4HRT PRN Administration Shortness Of Breath Amiodarone HCl 200 mg 12/26/20 10:00 12/27/20 10:44 Amiodarone 200 Mg Tab PO 200 mg DAILY RICA Administration Aripiprazole 10 mg 12/20/20 10:00 12/27/20 10:44 Aripiprazole 10 Mg Tab PO 10 mg DAILY RICA Administration Aspirin 81 mg 12/20/20 10:00 12/27/20 10:44 Aspirin Ec 81 Mg Tab PO 81 mg QDAY RICA Administration Atorvastatin Calcium 10 mg 12/20/20 22:00 12/26/20 22:30 Atorvastatin 10 Mg Tab PO 10 mg QHS RICA Administration Cetirizine HCl 10 mg 12/20/20 10:00 12/27/20 10:44 Cetirizine 10 Mg Tab PO 10 mg DAILY RICA Administration Cholecalciferol 5,000 unit 12/20/20 10:00 12/27/20 10:49 Cholecalciferol (Vit D3) 5,000 Unit Tab PO 5,000 unit DAILY RICA Administration Heparin Sodium (Porcine) 5,000 unit 12/18/20 22:00 12/27/20 10:44 Heparin 5,000 Unit/1 Ml Vial SUB-Q 5,000 unit Q12HR RICA Administration Hydralazine HCl 10 mg 12/23/20 01:31 12/23/20 02:18 Hydralazine 20 Mg/1 Ml Inj IV 10 mg Q6H PRN Administration Blood Pressure Hydromorphone HCl 0.25 mg 12/18/20 19:10 12/23/20 22:57 Hydromorphone 1 Mg/1 Ml Inj IV 0.25 mg Q4H PRN Administration Pain, Moderate (4-6) Hydromorphone HCl 0.5 mg 12/18/20 19:10 Hydromorphone 1 Mg/1 Ml Inj IV Q12H PRN Pain , Severe (7-10) Diltiazem HCl 100 mg in 100 mls @ 5 mls/hr 12/24/20 06:00 12/25/20 02:30 Cardizem/D5w 100mg/100ml IV 0 mg/hr DIRECT RICA 0 mls/hr Titration Protocol 5 MG/HR Insulin Glargine 5 units 12/23/20 22:00 12/26/20 22:29 Insulin Glargine 100 Units/Ml SUB-Q 5 units QHS RICA Administration Insulin Human Regular 0 units 12/21/20 11:30 12/27/20 12:28 Insulin Regular, Human 100 Units/1 Ml SUB-Q Not Given ACHS RICA Protocol Lisinopril 20 mg 12/24/20 10:00 12/27/20 10:45 Lisinopril 20 Mg Tab PO Not Given QDAY RIAC Memantine 10 mg 12/20/20 10:00 12/27/20 10:44 Memantine 10 Mg Tab PO 10 mg BID RICA Administration Metoprolol Tartrate 100 mg 12/23/20 22:00 12/27/20 10:45 Metoprolol Tartrate 100 Mg Tab PO Not Given BID RICA Ondansetron HCl 4 mg 12/18/20 19:10 Ondansetron 4 Mg/2 Ml Inj IV Q8H PRN Nausea And Vomiting Oxycodone/Acetaminophen 1 tab 12/18/20 19:10 Oxycodone /Acetaminophen 5-325mg Tab PO Q12H PRN Pain, Moderate (4-6) Quetiapine Fumarate 50 mg 12/24/20 22:00 12/26/20 22:30 Quetiapine 25 Mg Tab PO 50 mg QHS RICA Administration Sertraline HCl 50 mg 12/22/20 22:00 12/26/20 22:30 Sertraline 50 Mg Tab PO 50 mg QHS RICA Administration Sodium Chloride 10 ml 12/18/20 22:00 12/27/20 10:45 Sodium Chloride 0.9% 10 Ml Flush Syringe IV 10 ml BID RICA Administration Sodium Chloride 10 ml 12/18/20 19:10 Sodium Chloride 0.9% 10 Ml Flush Syringe IV PRN PRN LINE FLUSH Nutrition/Malnutrition Assess - Dietary Evaluation Nutrition/Malnutrition Findings: Nutrition Notes Start: 12/19/20 11: 30 Freq: Status: Active Protocol: Document 12/24/20 12:50 MK (Rec: 12/24/20 12:53 MK [id number]) Nutrition Notes Initial or Follow up Reassessment Current Diagnosis COPD,Sepsis,Hypertension,Heart Failure,Stroke,Hyperlipidemia Other Pertinent Diagnosis pneu, dementia, OA Current Diet pureed Labs/Tests Na 147 Pertinent Medications Reviewed Height 5 ft 6 in Weight 54.8 kg [place] Body Weight (kg) 59.09 BMI 19.5 Weight Status Underweight Subjective/Other Information FU for intakes. RN reports pt eating 25% of meals. Will try Nepro ONS as it is the only nectar like liquid ONS carried . Percent of energy/protein needs met: 27%/40% Burn Absent Trauma Absent Difficulty In Swallowing Current % PO Poor (25-49%) Minimum of two criteria No Body Fat Depletion Mild depletion (non-severe) #1 Nutrition Diagnosis Inadequate energy intake As Evidenced by Signs and Symptoms pt eating 25% of meals Diagnosis Progress(for reassessment Worsened documentation) Is patient on ventilator? No Is Patient Ambulatory and/or Out of Bed No REE-([place]-confined to bed) 1225.104 Kcal/Kg value to use for calculation 29 Approximate Energy Requirements Using 1589 kcal/Kg Calculation Used for Recommendations Kcal/kg Additional Notes Protein: (1-1.2g/kg) 48-58g Fluid: 1ml/kcal or per MD Nutrition Intervention Change Diet Order: Continue current diet as ordered Add Supplement/Snack (indicate name/kcal Nepro daily /protein ) Provides kCal: 425 Provides Protein (gm) 19 Goal #1 Meet at least 80% of kcal and protein needs via PO Anticipated Discharge Needs: Pureed diet Follow-Up By: 12/28/20 Additional Comments F/U for intakes and ONS tolerance
[2020-12-27] MEDS: INSULIN GLARGINE 100 UNITS/ML SUB-Q SCH (22:00)
[2020-12-27] MEDS: QUEtiapine 25 MG TAB PO SCH (22:08)
[2020-12-27] MEDS: SERTRALINE 50 MG TAB PO SCH (22:08)
[2020-12-28] MEDS: INSULIN REGULAR, HUMAN 100 UNITS/1 ML SUB-Q SCH ×2 (10:38→21:40)
[2020-12-28] MEDS: HEPARIN 5,000 UNIT/1 ML VIAL SUB-Q SCH ×2 (11:05→21:40)
[2020-12-28] MEDS: ASPIRIN EC 81 MG TAB PO SCH (11:10)
[2020-12-28] MEDS: ARIPiprazole 10 MG TAB PO SCH (11:10)
[2020-12-28] MEDS: LISINOPRIL 20 MG TAB PO SCH (11:10)
[2020-12-28] MEDS: CETIRIZINE 10 MG TAB PO SCH (11:11)
[2020-12-28] MEDS: METOPROLOL TARTRATE 100 MG TAB PO SCH ×2 (11:11→21:38)
[2020-12-28] MEDS: AMIODARONE 200 MG TAB PO SCH (11:12)
[2020-12-28] MEDS: MEMANTINE 10 MG TAB PO SCH ×2 (11:12→21:38)
--- NOTE | 2020-12-28 15:16 | Progress Note ---
Assessment and Plan Assessment and plan: (1) Atrial fibrillation RVT/multifocal atrial tachycardia Supportive care, continue medical management. Echo 12/18/2020- EF 35-40%, normal left ventricular wall thickness, right ventricular systolic function normal, moderately dilated right atrium, mild aortic regurgitation, trace mitral and tricuspid regurgitation, no pulmonic regurgitation. Patient had 9 beat run of VTach overnight on 12/21, afib rvr with vent rate of 150-160 on 12/23. Continuous telemetry monitoring Lopressor 100 mg po bid. Amiodarone 200 mg p.o. bid started for improved heart rate control Cardiology following (2) Acute respiratory failure with hypoxia - improving Telemetry, pulse oximetry Possibly due to aspiration pneumonia 12/21/2020 CXR demonstrates bilateral opacities. Official read per radiology [place] thick liquids, aspiration precautions Continue Rocephin IV, azithromycin IV Continue Solu-Medrol until 12/22. Needs walking O2 test to determine qualification for home oxygen (3) Vascular dementia Continue aspirin and atorvastatin. Discontinue Xanax Continue aripiprazole Start Seroquel nightly (4) Cerebral atherosclerosis Supportive care, risk factor reduction, antiplatelet therapy as clinically yvonne cated. (5) Malnutrition Dietary supplementation, increase protein intake when awake and alert only. [place] thick liquids Aspiration precautions (6) Aspiration pneumonitis Supportive care Regimen as above (7) heart failure with reduced ejection fraction Echo findings as above GDMT: metoprolol and lisinopril Cardiology following (8) Sepsis (resolved) Management as above (9) DVT prophylaxis SCD to bilateral lower extremities while in bed, prophylactic anticoagulation (10) Advance care planning Case management is consulted. Once medically cleared patient can be discharged back to facility. Patient may need home oxygen set up, will attempt to do walking O2 test prior to discharge to determine if patient needs supplemental oxygen oxygen. Patient insurance authorization for SNF declined. currently working to contact insurance company to resolve issue. Case management assisting. Discussed with [place] physician today hopefully they can help facilitate. 12/28/2020: Still awaiting placement. Spoke with JOHANNE Puga who will call and see if progress made. History Interval history: 12/28/2020: no overnight events. 12/27/2020: Patient has no acute complaints this morning. Only concerned that her family does not know she is in hospital patient was reassured that family does not fact know she is in hospital. Will need to follow-up with case management regarding placement status. 12/26/2020: Patient has no acute complaints this morning. No overnight events. Heart rate still rate controlled. Placement still continues to be an issue. Discussed with Dionte López Over phone who stated that they will try to work on their to hopefully help patient with placement. 12/25/2020: Patient has no acute complaints this morning. Heart rate more effectively controlled with amiodarone. Currently working on placement to SNF. Insurance declined authorization. currently working with insurance company in conjunction with case management to find a solution for . We w ill attempt a walking O2 test today to see if patient qualifies for home oxygen. Potential discharge today or tomorrow 12/24/2020: Patient has no acute complaints this morning. Overnight heart rate was in 150s to 160s. Diltiazem drip was initiated. Discussed patient case with cardiology this morning, will be starting amiodarone on patient. Discharge pending improvement of heart rate. Blood pressure also noted to be elevated this morning. Added KELSEY inhibitor for improved blood pressure control and for guideline directed medical therapy for CHF. 12/23/20: Patient still requiring oxygen at 2 L NC. This AM attempted to go to restroom and had episode of Afib RVR with rate in 150-160. Patient was asymptomatic during this episdoe. Given lopressor 5 mg IV x 1 and responded. Metoprolol dosing changed to Toprol 100 mg po bid by cardiology. Will likely require additional night stay. Plan for d/c and patient to potentially go home on home O2. Discussed plan with patient and CM. 12/22/20: Patient resting comfortably in bed. No acute complaints on encounter. Nasal cannula not appropriately positioned however patient is saturating in the mid 90s. Discussed with nurse about discontinuing O2 and checking sat post discontinuation. Hospitalist Physical - Physical exam Narrative exam: Physical Exam: GENERAL APPEARANCE: Well developed, thin, alert and cooperative, and appears to be in no acute distress. Answers yes/no questions. HEAD: normocephalic. EYES: PERRL, EOMI. Vision is grossly intact. EARS: No gross deformities NOSE: No nasal discharge. THROAT: Oral cavity and pharynx normal. No inflammation, swelling, exudate, or lesions. Teeth and gingiva in good general condition. NECK: Neck supple, non-tender without lymphadenopathy, masses or thyromegaly. CARDIAC: Rhythm is irrregualr, tachycardic on initial encounter. There is no peripheral edema, cyanosis or pallor. Extremities are warm and well perfused. Capillary refill is less than 2 seconds. No carotid bruits. LUNGS: Normal lung exam. Poor air movement. No cyanosis or respiratory distress noted. ABDOMEN: Positive bowel sounds. Soft, nondistended, nontender. No guarding or rebound. No masses. MUSKULOSKELETAL: Adequately aligned spine. ROM intact spine and extremities. No joint erythema or tenderness. BACK: Examination of the spine reveals normal gait and posture EXTREMITIES: No significant deformity or joint abnormality. No edema. Peripheral pulses intact. No varicosities. NEUROLOGICAL: CN II-XII intact. Strength and sensation symmetric and intact throughout. Reflexes 2+ throughout. PSYCHIATRIC: The mental examination revealed the patient was oriented to person. Patient appears to be pleasantly demented. - Constitutional Vitals: Temp Pulse Resp BP Pulse Ox 98.6 F 61 16 135/55 94 12/28/20 06:00 12/28/20 11:11 12/28/20 11:04 12/28/20 11:04 12/28/20 14:09 General appearance: Present: no acute distress, well-nourished HEART Score - HEART Score Troponin: Troponin T 0.102 ng/mL (0.00-0.029) H* 12/19/20 12:42 Results - Labs CBC & Chem 7: 12/22/20 04:27 12/25/20 04:09 Labs: Laboratory Last Values WBC 15.0 K/mm3 (4.5-11.0) H 12/22/20 04:27 RBC 4.38 M/mm3 (3.65-5.03) 12/22/20 04:27 Hgb 13.7 gm/dl (10.1-14.3) 12/22/20 04:27 Hct 41.1 % (30.3-42.9) 12/22/20 04:27 MCV 94 fl (79-97) 12/22/20 04:27 MCH 31 pg (28-32) 12/22/20 04:27 MCHC 33 % (30-34) 12/22/20 04:27 RDW 14.0 % (13.2-15.2) 12/22/20 04:27 Plt Count 304 K/mm3 (140-440) 12/22/20 04:27 Lymph % (Auto) 2.4 % (13.4-35.0) L 12/18/20 16:06 [place] % (Auto) 9.0 % (0.0-7.3) H 12/18/20 16:06 Eos % (Auto) 0.1 % (0.0-4.3) 12/18/20 16:06 Baso % (Auto) 1.2 % (0.0-1.8) 12/18/20 16:06 Lymph # (Auto) 0.4 K/mm3 (1.2-5.4) L 12/18/20 16:06 [place] # (Auto) 1.5 K/mm3 (0.0-0.8) H 12/18/20 16:06 Eos # (Auto) 0.0 K/mm3 (0.0-0.4) 12/18/20 16:06 Baso # (Auto) 0.2 K/mm3 (0.0-0.1) H 12/18/20 16:06 Add Manual Diff Complete 12/22/20 04:27 Total Counted 100 12/22/20 04:27 Seg Neutrophils % Service Administrator 12/22/20 04:27 Seg Neuts % (Manual) 93.0 % (40.0-70.0) H 12/22/20 04:27 Band Neutrophils % 3.0 % 12/22/20 04:27 Lymphocytes % (Manual) 3.0 % (13.4-35.0) L 12/22/20 04:27 Monocytes % (Manual) 1.0 % (0.0-7.3) 12/22/20 04:27 Nucleated RBC % Not Reportable 12/22/20 04:27 Seg Neutrophils # 14.2 K/mm3 (1.8-7.7) H 12/18/20 16:06 Seg Neutrophils # Man 14.0 K/mm3 (1.8-7.7) H 12/22/20 04:27 Band Neutrophils # 0.5 K/mm3 12/22/20 04:27 Lymphocytes # (Manual) 0.5 K/mm3 (1.2-5.4) L 12/22/20 04:27 Abs React Lymphs (Man) 0.0 K/mm3 12/22/20 04:27 Monocytes # (Manual) 0.2 K/mm3 (0.0-0.8) 12/22/20 04:27 Eosinophils # (Manual) 0.0 K/mm3 (0.0-0.4) 12/22/20 04:27 Basophils # (Manual) 0.0 K/mm3 (0.0-0.1) 12/22/20 04:27 Metamyelocytes # 0.0 K/mm3 12/22/20 04:27 Myelocytes # 0.0 K/mm3 12/22/20 04:27 Promyelocytes # 49.8 K/mm3 12/22/20 04:27 Blast Cells # 0.0 K/mm3 12/22/20 04:27 WBC Morphology Not Reportable 12/22/20 04:27 Hypersegmented Neuts Not Reportable 12/22/20 04:27 Hyposegmented Neuts Not Reportable 12/22/20 04:27 Hypogranular Neuts Not Reportable 12/22/20 04:27 Smudge Cells Not Reportable 12/22/20 04:27 Toxic Granulation Not Reportable 12/22/20 04:27 Toxic Vacuolation Not Reportable 12/22/20 04:27 Dohle Bodies Not Reportable 12/22/20 04:27 Pelger-Huet Anomaly Not Reportable 12/22/20 04:27 Mina Rods Not Reportable 12/22/20 04:27 Platelet Estimate Consistent w auto 12/22/20 04:27 Clumped Platelets Not Reportable 12/22/20 04:27 Plt Clumps, EDTA Not Reportable 12/22/20 04:27 Large Platelets Not Reportable 12/22/20 04:27 Giant Platelets Not Reportable 12/22/20 04:27 Platelet Satelliting Not Reportable 12/22/20 04:27 Plt Morphology Comment Not Reportable 12/22/20 04:27 RBC Morphology Normal 12/22/20 04:27 Dimorphic RBCs Not Reportable 12/22/20 04:27 Polychromasia Not Reportable 12/22/20 04:27 Hypochromasia Not Reportable 12/22/20 04:27 Poikilocytosis Not Reportable 12/22/20 04:27 Anisocytosis Not Reportable 12/22/20 04:27 Microcytosis Not Reportable 12/22/20 04:27 Macrocytosis Not Reportable 12/22/20 04:27 Spherocytes Not Reportable 12/22/20 04:27 Pappenheimer Bodies Not Reportable 12/22/20 04:27 Sickle Cells Not Reportable 12/22/20 04:27 Target Cells Not Reportable 12/22/20 04:27 Tear Drop Cells Not Reportable 12/22/20 04:27 Ovalocytes Not Reportable 12/22/20 04:27 Helmet Cells Not Reportable 12/22/20 04:27 [place] Bodies Not Reportable 12/22/20 04:27 Loiza Rings Not Reportable 12/22/20 04:27 [place] Cells Not Reportable 12/22/20 04:27 Bite Cells Not Reportable 12/22/20 04:27 Crenated Cell Not Reportable 12/22/20 04:27 Elliptocytes Not Reportable 12/22/20 04:27 Acanthocytes (Spur) Not Reportable 12/22/20 04:27 Rouleaux Not Reportable 12/22/20 04:27 Hemoglobin C Crystals Not Reportable 12/22/20 04:27 Schistocytes Not Reportable 12/22/20 04:27 Malaria parasites Not Reportable 12/22/20 04:27 David Bodies Not Reportable 12/22/20 04:27 Hem Pathologist Commnt No 12/22/20 04:27 Sodium 147 mmol/L (137-145) H 12/25/20 04:09 Potassium 4.0 mmol/L (3.6-5.0) 12/25/20 04:09 Chloride 110.6 mmol/L (98-107) H 12/25/20 04:09 Carbon Dioxide 28 mmol/L (22-30) 12/25/20 04:09 Anion Gap 12 mmol/L 12/25/20 04:09 BUN 19 mg/dL (7-17) H 12/25/20 04:09 Creatinine 0.7 mg/dL (0.6-1.2) 12/25/20 04:09 Estimated GFR > 60 ml/min 12/25/20 04:09 BUN/Creatinine Ratio 27 % 12/25/20 04:09 Glucose 84 mg/dL (65-100) 12/25/20 04:09 POC Glucose 83 mg/dL (70-105) 12/28/20 11:51 Lactic Acid 1.60 mmol/L (0.7-2.0) 12/19/20 05:10 Calcium 8.1 mg/dL (8.4-10.2) L 12/25/20 04:09 Magnesium 2.30 mg/dL (1.7-2.3) 12/22/20 04:27 Total Bilirubin 0.30 mg/dL (0.1-1.2) 12/25/20 04:09 AST 14 units/L (5-40) 12/25/20 04:09 ALT 13 units/L (7-56) 12/25/20 04:09 Alkaline Phosphatase 94 units/L (35-129) 12/25/20 04:09 Troponin T 0.102 ng/mL (0.00-0.029) H* 12/19/20 12:42 NT-Pro-B Natriuret Pep 4882 pg/mL (0-900) H 12/18/20 16:06 Total Protein 4.2 g/dL (6.3-8.2) L 12/25/20 04:09 Albumin 2.3 g/dL (3.9-5) L 12/25/20 04:09 Albumin/Globulin Ratio 1.2 % 12/25/20 04:09 Triglycerides 83 mg/dL (2-149) 12/19/20 12:42 Cholesterol 106 mg/dL (50-199) 12/19/20 12:42 LDL Cholesterol Direct 45 mg/dL (50-130) L 12/19/20 12:42 HDL Cholesterol 50 mg/dL (40-59) 12/19/20 12:42 Cholesterol/HDL Ratio 2.12 % 12/19/20 12:42 TSH 3.170 mlU/mL (0.270-4.200) 12/18/20 19:30 Free T4 1.24 ng/dL (0.76-1.46) 12/18/20 19:30 Coronavirus (PCR) Negative (Negative) 12/21/20 Unknown Acuña/IV: Voiding Method Indwelling Catheter Active Medications - Current Medications Current Medications: Generic Name Dose Route Start Last Admin Trade Name Peterq PRN Reason Stop Dose Admin Acetaminophen 650 mg 12/18/20 19:10 12/22/20 10:21 Acetaminophen 325 Mg Tab PO 650 mg Q4H PRN Administration Pain MILD(1-3)/Fever >100.5/LUTHER Albuterol 2.5 mg 12/18/20 19:10 12/23/20 14:23 Albuterol 2.5 Mg/3 Ml Nebu IH 2.5 mg Q4HRT PRN Administration Shortness Of Breath Amiodarone HCl 200 mg 12/26/20 10:00 12/28/20 11:12 Amiodarone 200 Mg Tab PO 200 mg DAILY RICA Administration Aripiprazole 10 mg 12/20/20 10:00 12/28/20 11:10 Aripiprazole 10 Mg Tab PO 10 mg DAILY RICA Administration Aspirin 81 mg 12/20/20 10:00 12/28/20 11:10 Aspirin Ec 81 Mg Tab PO 81 mg QDAY RICA Administration Atorvastatin Calcium 10 mg 12/20/20 22:00 12/27/20 22:08 Atorvastatin 10 Mg Tab PO 10 mg QHS RICA Administration Cetirizine HCl 10 mg 12/20/20 10:00 12/28/20 11:11 Cetirizine 10 Mg Tab PO 10 mg DAILY RICA Administration Cholecalciferol 5,000 unit 12/20/20 10:00 12/27/20 10:49 Cholecalciferol (Vit D3) 5,000 Unit Tab PO 5,000 unit DAILY RICA Administration Heparin Sodium (Porcine) 5,000 unit 12/18/20 22:00 12/28/20 11:05 Heparin 5,000 Unit/1 Ml Vial SUB-Q 5,000 unit Q12HR RICA Administration Hydralazine HCl 10 mg 12/23/20 01:31 12/23/20 02:18 Hydralazine 20 Mg/1 Ml Inj IV 10 mg Q6H PRN Administration Blood Pressure Hydromorphone HCl 0.25 mg 12/18/20 19:10 12/23/20 22:57 Hydromorphone 1 Mg/1 Ml Inj IV 0.25 mg Q4H PRN Administration Pain, Moderate (4-6) Hydromorphone HCl 0.5 mg 12/18/20 19:10 Hydromorphone 1 Mg/1 Ml Inj IV Q12H PRN Pain , Severe (7-10) Diltiazem HCl 100 mg in 100 mls @ 5 mls/hr 12/24/20 06:00 12/25/20 02:30 Cardizem/D5w 100mg/100ml IV 0 mg/hr DIRECT RICA 0 mls/hr Titration Protocol 5 MG/HR Insulin Glargine 5 units 12/23/20 22:00 12/27/20 22:00 Insulin Glargine 100 Units/Ml SUB-Q Not Given QHS RICA Insulin Human Regular 0 units 12/21/20 11:30 12/28/20 10:38 Insulin Regular, Human 100 Units/1 Ml SUB-Q Not Given ACHS [facility] Protocol Lisinopril 20 mg 12/24/20 10:00 12/28/20 11:10 Lisinopril 20 Mg Tab PO 20 mg QDAY RICA Administration Memantine 10 mg 12/20/20 10:00 12/28/20 11:12 Memantine 10 Mg Tab PO 10 mg BID RICA Administration Metoprolol Tartrate 100 mg 12/23/20 22:00 12/28/20 11:11 Metoprolol Tartrate 100 Mg Tab PO 100 mg BID RICA Administration Ondansetron HCl 4 mg 12/18/20 19:10 Ondansetron 4 Mg/2 Ml Inj IV Q8H PRN Nausea And Vomiting Oxycodone/Acetaminophen 1 tab 12/18/20 19:10 Oxycodone /Acetaminophen 5-325mg Tab PO Q12H PRN Pain, Moderate (4-6) Quetiapine Fumarate 50 mg 12/24/20 22:00 12/27/20 22:08 Quetiapine 25 Mg Tab PO 50 mg QHS RICA Administration Sertraline HCl 50 mg 12/22/20 22:00 12/27/20 22:08 Sertraline 50 Mg Tab PO 50 mg QHS RICA Administration Sodium Chloride 10 ml 12/18/20 22:00 12/28/20 11:19 Sodium Chloride 0.9% 10 Ml Flush Syringe IV 10 ml BID RICA Administration Sodium Chloride 10 ml 12/18/20 19:10 Sodium Chloride 0.9% 10 Ml Flush Syringe IV PRN PRN LINE FLUSH Nutrition/Malnutrition Assess - Dietary Evaluation Nutrition/Malnutrition Findings: Nutrition Notes Start: 12/19/20 11:30 Freq: Status: Active Protocol: Document 12/28/20 13:17 GUEAR (Rec: 12/28/20 13:21 GUERA [id number]) Nutrition Notes Initial or Follow up Reassessment Current Diagnosis COPD,Sepsis,Hypertension,Heart Failure,Stroke,Hyperlipidemia Other Pertinent Diagnosis pneu, dementia, OA Current Diet mech soft and nectar thickened liquids. Labs/Tests Reviewed Pertinent Medications Reviewed Height 5 ft 6 in Weight 58.8 kg [place] Body Weight (kg) 59.09 BMI 20.9 Weight Status Underweight Subjective/Other Information Pt eating 45% of meals. ONS was not carried over to new diet and pt did not receive. Percent of energy/protein needs met: 58%/91% Burn Absent Trauma Absent Difficulty In Swallowing Current % PO Poor (25-49%) Minimum of two criteria No Body Fat Depletion Mild depletion (non-severe) #1 Nutrition Diagnosis Inadequate energy intake As Evidenced by Signs and Symptoms pt meeting 58%/91% of kcal/pro needs Diagnosis Progress(for reassessment Improved documentation) Is patient on ventilator? No Is Patient Ambulatory and/or Out of Bed No REE-([facility]-confined to bed) 1273.056 Kcal/Kg value to use for calculation 29 Approximate Energy Requirements Using 1705 kcal/Kg Calculation Used for Recommendations Kcal/kg Additional Notes Protein: (1-1.2g/kg) 48-58g Fluid: 1ml/kcal or per MD Nutrition Intervention Change Diet Order: continue Add Supplement/Snack (indicate name/kcal Nepro daily /protein ) Provides kCal: 425 Provides Protein (gm) 19 Goal #1 Meet at least 80% of kcal and protein needs via PO Anticipated Discharge Needs: Mech soft, ground meats, nectar like liquids Follow-Up By: 12/31/20 Additional Comments F/U for intakes and ONS tolerance
[2020-12-28] MEDS: QUEtiapine 25 MG TAB PO SCH (21:40)
[2020-12-28] MEDS: SERTRALINE 50 MG TAB PO SCH (21:40)
[2020-12-28] MEDS: INSULIN GLARGINE 100 UNITS/ML SUB-Q SCH (21:41)
[2020-12-29] MEDS: INSULIN REGULAR, HUMAN 100 UNITS/1 ML SUB-Q SCH ×4 (08:03→22:11)
[2020-12-29 10:43] LABS: Blood Urea Nitrogen 9 mg/dL (7-17); Calcium 8.5 mg/dL (8.4-10.2); Hemolysis Index 93
[2020-12-29 10:50] LABS: BUN/Creatinine Ratio 18
[2020-12-29] MEDS: CHOLECALCIFEROL (VIT D3) 5,000 UNIT TAB PO SCH (10:53)
[2020-12-29] MEDS: MEMANTINE 10 MG TAB PO SCH ×2 (10:53→22:09)
[2020-12-29] MEDS: METOPROLOL TARTRATE 100 MG TAB PO SCH ×2 (10:53→22:11)
[2020-12-29] MEDS: CETIRIZINE 10 MG TAB PO SCH (10:54)
[2020-12-29] MEDS: ASPIRIN EC 81 MG TAB PO SCH (10:54)
[2020-12-29] MEDS: ARIPiprazole 10 MG TAB PO SCH (10:54)
[2020-12-29] MEDS: AMIODARONE 200 MG TAB PO SCH (10:54)
[2020-12-29] MEDS: LISINOPRIL 20 MG TAB PO SCH (10:54)
[2020-12-29] MEDS: HEPARIN 5,000 UNIT/1 ML VIAL SUB-Q SCH ×2 (10:55→22:09)
--- NOTE | 2020-12-29 14:10 | Progress Note ---
Assessment and Plan 85 YO Female with Vascular Dementia who is currently bedbound and nonambulatory, Cerebral Atherosclerosis, HLD, h/o CVA, Atrial Fib, COPD, AR, HTN, OA, Valvular Heart Disease, Debility, BRCA S/P Mastectomy presents to ED for evaluation of progressive weakness. In the ER patient found to have a pulse oximetry of 86% while on room air , Patient underwent chest x-ray and found to have pneumonia suspected secondary to aspiration. Patient was admitted for acute respiratory failure, aspiration pneumonia, acute on chronic debility. Family requested for long-term placement. Assessment and plan: -- Atrial fibrillation RVT/multifocal atrial tachycardia Supportive care, continue medical management. Echo 12/18/2020- EF 35-40%, normal left ventricular wall thickness, right ventricular systolic function normal, moderately dilated right atrium, mild aortic regurgitation, trace mitral and tricuspid regurgitation, no pulmonic regurgitation. Continuous telemetry monitoring Lopressor 100 mg po bid. --NSVT Patient had 9 beat run of VTach overnight on 12/21, afib rvr with vent rate of 150-160 on 12/23. Continuous telemetry monitoring Lopressor 100 mg po bid. Amiodarone 200 mg p.o. bid started for improved heart rate control Cardiology following -- Acute respiratory failure with hypoxia - improving Telemetry, pulse oximetry Possibly due to aspiration pneumonia 12/21/2020 CXR demonstrates bilateral opacities. Official read per radiology [place] thick liquids, aspiration precautions Continue Rocephin IV, azithromycin IV Continue Solu-Medrol until 12/22. Needs walking O2 test to determine qualification for home oxygen --Vascular dementia Continue aspirin and atorvastatin. Discontinue Xanax Continue aripiprazole Start Seroquel nightly -- Cerebral atherosclerosis Supportive care, risk factor reduction, antiplatelet therapy as clinically indicated. -- Malnutrition Dietary supplementation, increase protein intake when awake and alert only. [place] thick liquids Aspiration precautions --Aspiration pneumonitis Supportive care Regimen as above --Chronic systolic heart failure with reduced ejection fraction Echo findings as above GDMT: metoprolol and lisinopril Cardiology following -- Sepsis (resolved) due to aspiration pneumonia Management as above --Chronic debility, need placement -- DVT prophylaxis SCD to bilateral lower extremities while in bed, prophylactic anticoagulation -- Advance care planning Case management is consulted for placement. Patient is full code. Need oxygen requirement assessment before discharge Daily clinical course: 12/29/20: Patient appears to be clinically stable, tolerating diet. Resting peacefully on bed. Waiting on placement. Discussed with case management for disposition planning. 12/28/2020: Still awaiting placement. Spoke with JOHANNE Puga who will call and see if progress made. no overnight events. 12/27/2020: Patient has no acute complaints this morning. Only concerned that her family does not know she is in hospital patient was reassured that family does not fact know she is in hospital. Will need to follow-up with case management regarding placement status. 12/26/2020: Patient has no acute complaints this morning. No overnight events. Heart rate still rate controlled. Placement still continues to be an issue. Discussed with Dionte López Over phone who stated that they will try to work on their to hopefully help patient with placement. 12/25/2020: Patient has no acute complaints this morning. Heart rate more effectively controlled with amiodarone. Currently working on placement to SNF. Insurance declined authorization. currently working with insurance [employer] in conjunction with case management to find a solution for . We will attempt a walking O2 test today to see if patient qualifies for home oxygen. Potential discharge today or tomorrow 12/24/2020: Patient has no acute complaints this morning. Overnight heart rate was in 150s to 160s. Diltiazem drip was initiated. Discussed patient case with cardiology this morning, will be starting amiodarone on patient. Discharge pending improvement of heart rate. Blood pressure also noted to be elevated this morning. Added KELSEY inhibitor for improved blood pressure control and for guideline directed medical therapy for CHF. 12/23/20: Patient still requiring oxygen at 2 L NC. This AM attempted to go to restroom and had episode of Afib RVR with rate in 150-160. Patient was asymptomatic during this episdoe. Given lopressor 5 mg IV x 1 and responded. Metoprolol dosing changed to Toprol 100 mg po bid by cardiology. Will likely require additional night stay. Plan for d/c and patient to potentially go home on home O2. Discussed plan with patient and CM. 12/22/20: Patient resting comfortably in bed. No acute complaints on encounter. Nasal cannula not appropriately positioned however patient is saturating in the mid 90s. Discussed with nurse about discontinuing O2 and checking sat post discontinuation. Subjective Date of service: 12/29/20 Principal diagnosis: afib and nonstemi Interval history: Patient seen and examined. Medical records and medication list reviewed. No acute event overnight noted by the RN. Patient denies any chest pain or difficulty breathing. Patient is tolerating diet. Discussed plan of care at bedside with patient. Objective - Exam Narrative Exam: GENERAL: well-developed elderly white female lying on bed appeared to be in no discomfort. HEENT: Normocephalic. Atraumatic. No conjunctival congestion or icterus. Patient has moist mucous membranes. NECK: Supple. Trachea midline. CHEST/LUNGS: Clear to auscultated bilaterally, breathing nonlabored. No wheezes crackles or rhonchi. HEART/CARDIOVASCULAR: Regular in rate and rhythm. S1 and S2 positive. ABDOMEN: Abdomen is soft, nontender. Patient has normal bowel sounds. SKIN: There is no rash. Warm and dry. NEURO: No focal motor deficit. Follows command. MUSCULOSKELETAL: No joint effusion or tenderness. EXTRIMITY: No edema, no cyanosis or clubbing. PSYCH: Cooperative. - Constitutional Vitals: Vital Signs - 12hr 12/29/20 12/29/20 12/29/20 03:46 04:00 08:01 Temperature 98.2 F 98.0 F Pulse Rate 54 L 60 59 L Respiratory 16 18 Rate Blood Pressure 155/56 151/59 O2 Sat by Pulse 91 98 Oximetry 12/29/20 12/29/20 12/29/20 10:53 10:54 12:24 Temperature 98.2 F Pulse Rate 62 62 52 L Respiratory 18 Rate Blood Pressure 154/56 O2 Sat by Pulse 94 Oximetry - Labs CBC & Chem 7: 12/22/20 04:27 12/29/20 09:54 Labs: Abnormal lab results 12/28/20 12/29/20 12/29/20 Range/Units 16:52 09:54 12:23 Carbon Dioxide 36 H D (22-30) mmol/L Creatinine 0.5 L (0.6-1.2) mg/dL POC Glucose 136 H 113 H (70-105) mg/dL HEART Score - HEART Score Troponin: Troponin T 0.102 ng/mL (0.00-0.029) H* 12/19/20 12:42
[2020-12-29] MEDS: QUEtiapine 25 MG TAB PO SCH (22:08)
[2020-12-29] MEDS: INSULIN GLARGINE 100 UNITS/ML SUB-Q SCH (22:11)
[2020-12-29] MEDS: SERTRALINE 50 MG TAB PO SCH (22:13)
[2020-12-30] MEDS: INSULIN REGULAR, HUMAN 100 UNITS/1 ML SUB-Q SCH ×3 (08:00→21:14)
[2020-12-30] MEDS: LISINOPRIL 20 MG TAB PO SCH (11:44)
[2020-12-30] MEDS: ASPIRIN EC 81 MG TAB PO SCH (11:44)
[2020-12-30] MEDS: HEPARIN 5,000 UNIT/1 ML VIAL SUB-Q SCH ×2 (11:44→21:14)
[2020-12-30] MEDS: ARIPiprazole 10 MG TAB PO SCH (11:44)
[2020-12-30] MEDS: CETIRIZINE 10 MG TAB PO SCH (11:46)
[2020-12-30] MEDS: AMIODARONE 200 MG TAB PO SCH (11:46)
[2020-12-30] MEDS: METOPROLOL TARTRATE 100 MG TAB PO SCH ×2 (11:47→21:13)
[2020-12-30] MEDS: MEMANTINE 10 MG TAB PO SCH ×2 (12:04→21:14)
[2020-12-30] MEDS: CHOLECALCIFEROL (VIT D3) 5,000 UNIT TAB PO SCH (12:04)
--- NOTE | 2020-12-30 15:19 | Progress Note ---
Assessment and Plan 85 YO Female with Vascular Dementia who is currently bedbound and nonambulatory, Cerebral Atherosclerosis, HLD, h/o CVA, Atrial Fib, COPD, [place], HTN, OA, Valvular Heart Disease, Debility, BRCA S/P Mastectomy presents to ED for evaluation of progressive weakness. In the ER patient found to have a pulse oximetry of 86% while on room air , Patient underwent chest x-ray and found to have pneumonia suspected secondary to aspiration. Patient was admitted for acute respiratory failure, aspiration pneumonia, acute on chronic debility. Family requested for intermediate placement. Assessment and plan: -- Atrial fibrillation RVT/multifocal atrial tachycardia Supportive care, continue medical management. Echo 12/18/2020- EF 35-40%, normal left ventricular wall thickness, right ventricular systolic function normal, moderately dilated right atrium, mild aortic regurgitation, trace mitral and tricuspid regurgitation, no pulmonic regurgitation. Continuous telemetry monitoring Lopressor 100 mg po bid. --NSVT Patient had 9 beat run of VTach overnight on 12/21, afib rvr with vent rate of 150-160 on 12/23. Continuous telemetry monitoring Lopressor 100 mg po bid. Amiodarone 200 mg p.o. bid started for improved heart rate control Cardiology following -- Acute respiratory failure with hypoxia - improving Telemetry, pulse oximetry Possibly due to aspiration pneumonia 12/21/2020 CXR demonstrates bilateral opacities. Official read per radiology [place] thick liquids, aspiration precautions Continue Rocephin IV, azithromycin IV Continue Solu-Medrol until 12/22. Needs walking O2 test to determine qualification for home oxygen --Vascular dementia Continue aspirin and atorvastatin. Discontinue Xanax Continue aripiprazole Start Seroquel nightly -- Cerebral atherosclerosis Supportive care, risk factor reduction, antiplatelet therapy as clinically indicated. -- Malnutrition Dietary supplementation, increase protein intake when awake and alert only. [place] thick liquids Aspiration precautions --Aspiration pneumonitis Supportive care Regimen as above --Chronic systolic heart failure with reduced ejection fraction Echo findings as above GDMT: metoprolol and lisinopril Cardiology following -- Sepsis (resolved) due to aspiration pneumonia Management as above --Chronic debility, need placement -- DVT prophylaxis SCD to bilateral lower extremities while in bed, prophylactic anticoagulation -- Advance care planning Case management is consulted for placement. Patient is full code. Need oxygen requirement assessment before discharge Daily clinical course: 12/30/20: cont supportive care, pending placemement. serum chemistry from yesterday noted and stable. pt clinically stable 12/29/20: Patient appears to be clinically stable, tolerating diet. Resting peacefully on bed. Waiting on placement. Discussed with case management for disposition planning. 12/28/2020: Still awaiting placement. Spoke with JOHANNE Puga who will call and see if progress made. no overnight events. 12/27/2020: Patient has no acute complaints this morning. Only concerned that her family does not know she is in hospital patient was reassured that family does n ot fact know she is in hospital. Will need to follow-up with case management regarding placement status. 12/26/2020: Patient has no acute complaints this morning. No overnight events. Heart rate still rate controlled. Placement still continues to be an issue. Discussed with Dionte López Over phone who stated that they will try to work on their to hopefully help patient with placement. 12/25/2020: Patient has no acute complaints this morning. Heart rate more effectively controlled with amiodarone. Currently working on placement to SNF. Insurance declined authorization. currently working with insurance company in conjunction with case management to find a solution for . We will attempt a walking O2 test today to see if patient qualifies for home oxygen. Potential discharge today or tomorrow 12/24/2020: Patient has no acute complaints this morning. Overnight heart rate was in 150s to 160s. Diltiazem drip was initiated. Discussed patient case with cardiology this morning, will be starting amiodarone on patient. Discharge pending improvement of heart rate. Blood pressure also noted to be elevated this morning. Added KELSEY inhibitor for improved blood pressure control and for guideline directed medical therapy for CHF. 12/23/20: Patient still requiring oxygen at 2 L NC. This AM attempted to go to restroom and had episode of Afib RVR with rate in 150-160. Patient was asymptomatic during this episdoe. Given lopressor 5 mg IV x 1 and responded. Metoprolol dosing changed to Toprol 100 mg po bid by cardiology. Will likely require additional night stay. Plan for d/c and patient to potentially go home on home O2. Discussed plan with patient and CM. 12/22/20: Patient resting comfortably in bed. No acute complaints on encounter. Nasal cannula not appropriately positioned however patient is saturating in the mid 90s. Discussed with nurse about discontinuing O2 and checking sat post discontinuation. Subjective Date of service: 12/30/20 Principal diagnosis: afib and nonstemi Interval history: Patient seen and examined. Medical records and medication list reviewed. No acute event overnight noted by the RN. Patient denies any chest pain or difficulty breathing. Patient is tolerating diet. Discussed plan of care at bedside with patient. Objective - Exam Narrative Exam: GENERAL: well-developed elderly white female lying on bed appeared to be in no discomfort. HEENT: Normocephalic. Atraumatic. No conjunctival congestion or icterus. Patient has moist mucous membranes. NECK: Supple. Trachea midline. CHEST/LUNGS: Clear to auscultated bilaterally, breathing nonlabored. No wheezes crackles or rhonchi. HEART/CARDIOVASCULAR: Regular in rate and rhythm. S1 and S2 positive. ABDOMEN: Abdomen is soft, nontender. Patient has normal bowel sounds. SKIN: There is no rash. Warm and dry. NEURO: No focal motor deficit. Follows command. MUSCULOSKELETAL: No joint effusion or tenderness. EXTRIMITY: No edema, no cyanosis or clubbing. PSYCH: Cooperative. - Constitutional Vitals: Vital Signs - 12hr 12/30/20 12/30/20 12/30/20 04:00 05:34 09:15 Temperature 98.2 F Pulse Rate 60 58 L Respiratory 20 Rate Blood Pressure 126/52 [Left] O2 Sat by Pulse 97 Oximetry 12/30/20 12/30/20 11:44 11:47 Temperature Pulse Rate 58 L 58 L Respiratory Rate Blood Pressure [Left] O2 Sat by Pulse Oximetry - Labs CBC & Chem 7: 12/22/20 04:27 12/29/20 09:54 Labs: Abnormal lab results 12/29/20 Range/Units 21:40 POC Glucose 118 H (70-105) mg/dL HEART Score - HEART Score Troponin: Troponin T 0.102 ng/mL (0.00-0.029) H* 12/19/20 12:42
[2020-12-30] MEDS: INSULIN GLARGINE 100 UNITS/ML SUB-Q SCH (21:13)
[2020-12-30] MEDS: SERTRALINE 50 MG TAB PO SCH (21:14)
[2020-12-30] MEDS: QUEtiapine 25 MG TAB PO SCH (21:14)
[2020-12-31] MEDS: INSULIN REGULAR, HUMAN 100 UNITS/1 ML SUB-Q SCH ×7 (09:36→22:16)
[2020-12-31] MEDS: ARIPiprazole 10 MG TAB PO SCH (09:40)
[2020-12-31] MEDS: CETIRIZINE 10 MG TAB PO SCH (09:41)
[2020-12-31] MEDS: AMIODARONE 200 MG TAB PO SCH (09:56)
[2020-12-31] MEDS: CHOLECALCIFEROL (VIT D3) 5,000 UNIT TAB PO SCH (09:56)
[2020-12-31] MEDS: LISINOPRIL 20 MG TAB PO SCH (09:56)
[2020-12-31] MEDS: MEMANTINE 10 MG TAB PO SCH ×2 (09:57→21:41)
[2020-12-31] MEDS: METOPROLOL TARTRATE 100 MG TAB PO SCH ×2 (09:57→21:37)
[2020-12-31] MEDS: ASPIRIN EC 81 MG TAB PO SCH (09:58)
[2020-12-31] MEDS: HEPARIN 5,000 UNIT/1 ML VIAL SUB-Q SCH ×2 (09:59→21:43)
--- NOTE | 2020-12-31 15:46 | Progress Note ---
Assessment and Plan 85 YO Female with Vascular Dementia who is currently bedbound and nonambulatory, Cerebral Atherosclerosis, HLD, h/o CVA, Atrial Fib, COPD, [place], HTN, OA, Valvular Heart Disease, Debility, BRCA S/P Mastectomy presents to ED for evaluation of progressive weakness. In the ER patient found to have a pulse oximetry of 86% while on room air , Patient underwent chest x-ray and found to have pneumonia suspected secondary to aspiration. Patient was admitted for acute respiratory failure, aspiration pneumonia, acute on chronic debility. Family requested for alf placement. Assessment and plan: -- Atrial fibrillation RVT/multifocal atrial tachycardia Supportive care, continue medical management. Echo 12/18/2020- EF 35-40%, normal left ventricular wall thickness, right ventricular systolic function normal, moderately dilated right atrium, mild aortic regurgitation, trace mitral and tricuspid regurgitation, no pulmonic regurgitation. Continuous telemetry monitoring Lopressor 100 mg po bid. --NSVT Patient had 9 beat run of VTach overnight on 12/21, afib rvr with vent rate of 150-160 on 12/23. Continuous telemetry monitoring Lopressor 100 mg po bid. Amiodarone 200 mg p.o. bid started for improved heart rate control Cardiology following -- Acute respiratory failure with hypoxia - improving Telemetry, pulse oximetry Possibly due to aspiration pneumonia 12/21/2020 CXR demonstrates bilateral opacities. Official read per radiology [place] thick liquids, aspiration precautions Continue Rocephin IV, azithromycin IV Continue Solu-Medrol until 12/22. Needs walking O2 test to determine qualification for home oxygen --Vascular dementia Continue aspirin and atorvastatin. Discontinue Xanax Continue aripiprazole Start Seroquel nightly -- Cerebral atherosclerosis Supportive care, risk factor reduction, antiplatelet therapy as clinically indicated. -- Malnutrition Dietary supplementation, increase protein intake when awake and alert only. [place] thick liquids Aspiration precautions --Aspiration pneumonitis Supportive care Regimen as above --Chronic systolic heart failure with reduced ejection fraction Echo findings as above GDMT: metoprolol and lisinopril Cardiology following -- Sepsis (resolved) due to aspiration pneumonia Management as above --Chronic debility, need placement -- DVT prophylaxis SCD to bilateral lower extremities while in bed, prophylactic anticoagulation -- Advance care planning Case management is consulted for placement. Patient is full code. Need oxygen requirement assessment before discharge Daily clinical course: 12/31/20: pending placemement. pt clinically stable, cont supportive care. 12/30/20: cont supportive care, pending placemement. serum chemistry from yesterday noted and stable. pt clinically stable 12/29/20: Patient appears to be clinically stable, tolerating diet. Resting peacefully on bed. Waiting on placement. Discussed with case management for disposition planning. 12/28/2020: Still awaiting placement. Spoke with JOHANNE Puga who will call and see if progress made. no overnight events. 12/27/2020: Patient has no acute complaints this morning. Only concerned that her family does not know she is in hospital patient was reassured that family does not fact know she is in hospital. Will need to follow-up with case management regarding placement status. 12/26/2020: Patient has no acute complaints this morning. No overnight events. Heart rate still rate controlled. Placement still continues to be an issue. Discussed with Dionte López Over phone who stated that they will try to work on their to hopefully help patient with placement. 12/25/2020: Patient has no acute complaints this morning. Heart rate more effectively controlled with amiodarone. Currently working on placement to SNF. Insurance declined authorization. currently working with [employer] in conjunction with case management to find a solution for . We will attempt a walking O2 test today to see if patient qualifies for home oxygen. Potential discharge today or tomorrow 12/24/2020: Patient has no acute complaints this morning. Overnight heart rate was in 150s to 160s. Diltiazem drip was initiated. Discussed patient case with cardiology this morning, will be starting amiodarone on patient. Discharge pending improvement of heart rate. Blood pressure also noted to be elevated this morning. Added KELSEY inhibitor for improved blood pressure control and for guideline directed medical therapy for CHF. 12/23/20: Patient still requiring oxygen at 2 L NC. This AM attempted to go to restroom and had episode of Afib RVR with rate in 150-160. Patient was asymptomatic during this episdoe. Given lopressor 5 mg IV x 1 and responded. Metoprolol dosing changed to Toprol 100 mg po bid by cardiology. Will likely require additional night stay. Plan for d/c and patient to potentially go home on home O2. Discussed plan with patient and CM. 12/22/20: Patient resting comfortably in bed. No acute complaints on encounter. Nasal cannula not appropriately positioned however patient is saturating in the mid 90s. Discussed with nurse about discontinuing O2 and checking sat post discontinuation. Subjective Date of service: 12/31/20 Principal diagnosis: afib and nonstemi Interval history: Patient seen and examined. Medical records and medication list reviewed. No acute event overnight noted by the RN. Patient denies any chest pain or difficulty breathing. Patient is tolerating diet. Discussed plan of care at bedside with patient. Objective - Exam Narrative Exam: GENERAL: well-developed elderly white female lying on bed appeared to be in no discomfort. HEENT: Normocephalic. Atraumatic. No conjunctival congestion or icterus. Patient has moist mucous membranes. NECK: Supple. Trachea midline. CHEST/LUNGS: Clear to auscultated bilaterally, breathing nonlabored. No wheezes crackles or rhonchi. HEART/CARDIOVASCULAR: Regular in rate and rhythm. S1 and S2 positive. ABDOMEN: Abdomen is soft, nontender. Patient has normal bowel sounds. SKIN: There is no rash. Warm and dry. NEURO: No focal motor deficit. Follows command. MUSCULOSKELETAL: No joint effusion or tenderness. EXTRIMITY: No edema, no cyanosis or clubbing. PSYCH: Cooperative. - Constitutional Vitals: Vital Signs - 12hr 12/31/20 12/31/20 12/31/20 04:00 04:49 05:43 Temperature 98.2 F Pulse Rate 60 56 L 58 L Respiratory 18 Rate Blood Pressure Blood Pressure 126/44 [Left] O2 Sat by Pulse 95 Oximetry 12/31/20 12/31/20 12/31/20 07:40 08:07 09:56 Temperature 98.0 F Pulse Rate 59 L 67 Respiratory 18 Rate Blood Pressure 123/49 Blood Pressure [Left] O2 Sat by Pulse 95 96 Oximetry 12/31/20 12/31/20 09:57 11:59 Temperature 98.2 F Pulse Rate 67 60 Respiratory 20 Rate Blood Pressure 107/44 Blood Pressure [Left] O2 Sat by Pulse 94 Oximetry - Labs CBC & Chem 7: 12/22/20 04:27 12/29/20 09:54 Labs: Abnormal lab results 12/30/20 12/31/20 12/31/20 Range/Units 19:51 07:49 12:07 POC Glucose 138 H 69 L 144 H (70-105) mg/dL 12/31/20 Range/Units 15:45 POC Glucose 164 H (70-105) mg/dL HEART Score - HEART Score Troponin: Troponin T 0.102 ng/mL (0.00-0.029) H* 12/19/20 12:42
[2020-12-31] MEDS: SERTRALINE 50 MG TAB PO SCH (21:40)
[2020-12-31] MEDS: QUEtiapine 25 MG TAB PO SCH (21:42)
[2020-12-31] MEDS: ACETAMINOPHEN 325 MG TAB PO PRN (21:43)
[2021-01-01] MEDS: INSULIN REGULAR, HUMAN 100 UNITS/1 ML SUB-Q SCH (08:46)
[2021-01-01] MEDS: ARIPiprazole 10 MG TAB PO SCH (11:13)
[2021-01-01] MEDS: ASPIRIN EC 81 MG TAB PO SCH (11:13)
[2021-01-01] MEDS: MEMANTINE 10 MG TAB PO SCH (11:13)
[2021-01-01] MEDS: CHOLECALCIFEROL (VIT D3) 5,000 UNIT TAB PO SCH (11:13)
[2021-01-01] MEDS: AMIODARONE 200 MG TAB PO SCH (11:13)
[2021-01-01] MEDS: METOPROLOL TARTRATE 100 MG TAB PO SCH (11:13)
[2021-01-01] MEDS: LISINOPRIL 20 MG TAB PO SCH (11:13)
[2021-01-01] MEDS: HEPARIN 5,000 UNIT/1 ML VIAL SUB-Q SCH (11:14)
[2021-01-01] MEDS: CETIRIZINE 10 MG TAB PO SCH (11:14)
[2021-01-01 11:56] VITALS: BP 112/50
--- NOTE | 2021-01-01 14:02 | Discharge Summary ---
Providers - Providers Date of Admission: 12/18/20 19:11 Date of discharge: 01/01/21 Attending physician: THERESE AGRAWAL 12/18/20 19:16 Consult to Cardiology [CONS] Routine Consulting Provider: EMANUEL TAM Reason For Exam: chf 12/18/20 20:37 Consult to Case Management [CONS] Routine Services Needed at Discharge: Other Notified:: in am Additional Physician Instructions: Discharge planning/long term facility placement as per family request 12/19/20 09:33 Physical Therapy Evaluation and Treat [CONS] Routine Comment: Reason For Exam: Deconditioning 12/19/20 09:34 Speech Therapy Evaluation and Treat [CONS] Routine Reason For Exam: swallowing eval 12/19/20 10:50 Speech Therapy Evaluation and Treat [CONS] Stat Reason For Exam: swallow evaluation 12/19/20 16:08 Occupational Therapy Evaluate and Treat [CONS] Urgent Comment: Reason For Exam: Debility Primary care physician: SAVAGE HAN MD Hospitalization Condition: Stable Hospital course: 85 YO Female with Vascular Dementia who is currently bedbound and nonambulatory, Cerebral Atherosclerosis, HLD, h/o CVA, Atrial Fib, COPD, [place], HTN, OA, Valvular Heart Disease, Debility, BRCA S/P Mastectomy presents to ED for evaluation of progressive weakness. In the ER patient found to have a pulse oximetry of 86% while on room air , Patient underwent chest x-ray and found to have pneumonia suspected secondary to aspiration. Patient was admitted for acute respiratory failure, aspiration pneumonia, acute on chronic debility. Family requested for [facility]. Daily clinical course: 01/01/21; patient accepted to [facility] and will be discharge today in stable condition. 12/31/20: pending placemement. pt clinically stable, cont supportive care. 12/30/20: cont supportive care, pending placemement. serum chemistry from yesterday noted and stable. pt clinically stable 12/29/20: Patient appears to be clinically stable, tolerating diet. Resting peacefully on bed. Waiting on placement. Discussed with case management for disposition planning. 12/28/2020: Still awaiting placement. Spoke with JOHANNE Puga who will call and see if progress made. no overnight events. 12/27/2020: Patient has no acute complaints this morning. Only concerned that her family does not know she is in hospital patient was reassured that family does not fact know she is in hospital. Will need to follow-up with case management regarding placement status. 12/26/2020: Patient has no acute complaints this morning. No overnight events. Heart rate still rate controlled. Placement still continues to be an issue. Discussed with Dionte López Over phone who stated that they will try to work on their to hopefully help patient with placement. 12/25/2020: Patient has no acute complaints this morning. Heart rate more effectively controlled with amiodarone. Currently working on placement to SNF. Insurance declined authorization. currently working with insurance company in conjunction with case management to find a solution for . We will attempt a walking O2 test today to see if patient qualifies for home oxygen. Potential discharge today or tomorrow 12/24/2020: Patient has no acute complaints this morning. Overnight heart rate was in 150s to 160s. Diltiazem drip was initiated. Discussed patient case with cardiology this morning, will be starting amiodarone on patient. Discharge pending improvement of heart rate. Blood pressure also noted to be elevated this morning. Added KELSEY inhibitor for improved blood pressure control and for guideline directed medical therapy for CHF. 12/23/20: Patient still requiring oxygen at 2 L NC. This AM attempted to go to restroom and had episode of Afib RVR with rate in 150-160. Patient was asymptomatic during this episdoe. Given lopressor 5 mg IV x 1 and responded. Metoprolol dosing changed to Toprol 100 mg po bid by cardiology. Will likely require additional night stay. Plan for d/c and patient to potentially go home on home O2. Discussed plan with patient and CM. 12/22/20: Patient resting comfortably in bed. No acute complaints on encounter. Nasal cannula not appropriately positioned however patient is saturating in the mid 90s. Discussed with nurse about discontinuing O2 and checking sat post discontinuation. Assessment and plan: -- Atrial fibrillation RVT/multifocal atrial tachycardia Supportive care, continue medical management. Echo 12/18/2020- EF 35-40%, normal left ventricular wall thickness, right ventricular systolic function normal, moderately dilated right atrium, mild aortic regurgitation, trace mitral and tricuspid regurgitation, no pulmonic regurgitation. Continuous telemetry monitoring Lopressor 100 mg po bid. --NSVT Patient had 9 beat run of VTach overnight on 12/21, afib rvr with vent rate of 150-160 on 12/23. Continuous telemetry monitoring Lopressor 100 mg po bid. Amiodarone 200 mg p.o. bid started then reduced to QD for improved heart rate control Cardiology following -- Acute respiratory failure with hypoxia - improving Telemetry, pulse oximetry Possibly due to aspiration pneumonia 12/21/2020 CXR demonstrates bilateral opacities. Official read per radiology [place] thick liquids, aspiration precautions s/p Rocephin IV, azithromycin IV s/p Solu-Medrol until 12/22. d/c with 2L o2 --Vascular dementia Continue aspirin and atorvastatin. Discontinue Xanax Continue aripiprazole Start Seroquel nightly -- Cerebral atherosclerosis Supportive care, risk factor reduction, antiplatelet therapy as clinically indicated. -- Malnutrition, moderate Dietary supplementation, increase protein intake when awake and alert only. [place] thick liquids Aspiration precautions --Aspiration pneumonitis Supportive care Regimen as above --Chronic systolic heart failure with reduced ejection fraction Echo findings as above GDMT: metoprolol and lisinopril Cardiology following -- Sepsis (resolved) due to aspiration pneumonia Management as above --Chronic debility, need placement -- DVT prophylaxis SCD to bilateral lower extremities while in bed, prophylactic anticoagulation -- Advance care planning Case management is consulted for placement. Patient is full code. Need oxygen requirement assessment before discharge Disposition: [id number] SNF W [facility] CERT Final Discharge Diagnosis (Prints w/discharge instructions): -- Atrial fibrillation RVT/multifocal atrial tachycardia. --NSVT. -- Acute respiratory failure with hypoxia. --Vascular dementia. -- Cerebral atherosclerosis. -- Malnutrition. --Aspiration pneumonitis. --Chronic systolic heart failure with reduced ejection fraction. -- Sepsis (resolved) due to aspiration pneumonia. --Chronic debility, need placement Time spent for discharge: 34 minutes Core Measure Documentation - Palliative Care Palliative Care/ Comfort Measures: Not Applicable - Core Measures Any of the following diagnoses?: none Exam - Physical Exam Narrative exam: GENERAL: well-developed elderly white female lying on bed appeared to be in no discomfort. HEENT: Normocephalic. Atraumatic. No conjunctival congestion or icterus. Patient has moist mucous membranes. NECK: Supple. Trachea midline. CHEST/LUNGS: Clear to auscultated bilaterally, breathing nonlabored. No wheezes crackles or rhonchi. HEART/CARDIOVASCULAR: Regular in rate and rhythm. S1 and S2 positive. ABDOMEN: Abdomen is soft, nontender. Patient has normal bowel sounds. SKIN: There is no rash. Warm and dry. NEURO: No focal motor deficit. Follows command. MUSCULOSKELETAL: No joint effusion or tenderness. EXTRIMITY: No edema, no cyanosis or clubbing. PSYCH: Cooperative. - Constitutional Vitals: Temp Pulse Resp BP Pulse Ox 97.8 F 68 18 112/50 92 01/01/21 11:55 01/01/21 11:55 01/01/21 11:55 01/01/21 11:55 01/01/21 11:55 Plan Activity: fall precautions Weight Bearing Status: Non-Weight Bearing Diet: other (Mechanical soft diet) Special Instructions: home oxygen via (2 L nasal cannula) Follow up with: SAVAGE HAN MD [Primary Care Provider] - 3-5 Days
== END 2021-01-01 15:10 | DRG 871 ==
LOC: ED 14:01 → 4A 19:11
PROVIDERS: ADMIT Internal Medicine; ATTEND Internal Medicine
DX: A41.9 Sepsis, unspecified organism (principal); J96.01 Acute respiratory failure with hypoxia; J69.0 Pneumonitis due to inhalation of food and vomit; E43 Unspecified severe protein-calorie malnutrition; I21.4 Non-ST elevation (NSTEMI) myocardial infarction; I50.23 Acute on chronic systolic (congestive) heart failure; J44.1 Chronic obstructive pulmonary disease with (acute) exacerbation; I42.0 Dilated cardiomyopathy; I48.19 Other persistent atrial fibrillation; I47.1 Supraventricular tachycardia; Z68.1 Body mass index [BMI] 19.9 or less, adult; I11.0 Hypertensive heart disease with heart failure; F01.50 Vascular dementia, unspecified severity, without behavioral disturbance, psychotic disturbance, mood disturbance, and anxiety; I67.2 Cerebral atherosclerosis; E86.0 Dehydration; F41.9 Anxiety disorder, unspecified; G43.909 Migraine, unspecified, not intractable, without status migrainosus; E78.5 Hyperlipidemia, unspecified; R53.81 Other malaise; Z20.822 Contact with and (suspected) exposure to COVID-19; I48.91 Unspecified atrial fibrillation; K21.9 Gastro-esophageal reflux disease without esophagitis; F32.9 Major depressive disorder, single episode, unspecified; H40.9 Unspecified glaucoma; M17.0 Bilateral primary osteoarthritis of knee; K59.00 Constipation, unspecified; I48.0 Paroxysmal atrial fibrillation; M19.012 Primary osteoarthritis, left shoulder; Z88.1 Allergy status to other antibiotic agents; K57.90 Diverticulosis of intestine, part unspecified, without perforation or abscess without bleeding; Z86.73 Personal history of transient ischemic attack (TIA), and cerebral infarction without residual deficits; I25.2 Old myocardial infarction; Z87.440 Personal history of urinary (tract) infections; Z88.0 Allergy status to penicillin; Z88.8 Allergy status to other drugs, medicaments and biological substances; Z91.040 Latex allergy status; Z91.011 Allergy to milk products; Z85.3 Personal history of malignant neoplasm of breast; Z90.10 Acquired absence of unspecified breast and nipple; Z83.3 Family history of diabetes mellitus; Z82.49 Family history of ischemic heart disease and other diseases of the circulatory system
CPT/HCPCS: 36415; 71045; 71275; 74177; 74230; 80048; 80053; 80061; 82140; 82962; 83735; 83880; 84439; 84443; 84484; 85007; 85025; 87040; 93005; 93306; 94640; 94644; 94760; G0378; A9270-GY; J0360; J0456; J0696; J1170; J1644; J1815; J1956; J2920; J2930; J7030; J7040; Q9967; U0003